=== PATIENT | male | born 1965 | race Caucasian/White ===

== ENCOUNTER 2021-02-14 09:58 | Emergency (ER) | payer OTHER, SELFPAY ==
--- NOTE | ~2021-02-14 | XR_ITS ---
EXAMINATION: RIGHT WRIST, RIGHT ANKLE AND LEFT KNEE. CLINICAL INFORMATION: Pain. COMPARISON: None TECHNIQUE: Right wrist 4 views. Right ankle 3 views. Right knee 4 views. FINDINGS: Right wrist: There is no visible fracture, dislocation or subluxation seen. The intercarpal and radial ulnar carpal joint space is maintained normal. Right knee: There is mild reduction in the medial compartment joint space with periarticular spurring. The lateral and patellofemoral joint space is normal. There is mild suprapatellar joint effusion seen. The soft tissues are normal. Right ankle: There is bimalleolar soft tissue swelling. No visible acute fracture, dislocation or subluxation seen. There is mild dorsal tarsometatarsal spurring. The ankle mortise and subtalar joints are normal. XR/XR knee LT 4V IMPRESSION: Unremarkable right wrist exam. No visible acute fracture, dislocation or subluxation seen. Bimalleolar soft tissue swelling likely ligamentous injury. No acute fracture or dislocation. There is mild dorsal tarsometatarsal spurring. There is mild degenerative changes medial and patellofemoral compartment with mild suprapatellar joint effusion.
--- NOTE | ~2021-02-14 | XR_ITS ---
EXAMINATION: RIGHT WRIST, RIGHT ANKLE AND LEFT KNEE. CLINICAL INFORMATION: Pain. COMPARISON: None TECHNIQUE: Right wrist 4 views. Right ankle 3 views. Right knee 4 views. FINDINGS: Right wrist: There is no visible fracture, dislocation or subluxation seen. The intercarpal and radial ulnar carpal joint space is maintained normal. Right knee: There is mild reduction in the medial compartment joint space with periarticular spurring. The lateral and patellofemoral joint space is normal. There is mild suprapatellar joint effusion seen. The soft tissues are normal. Right ankle: There is bimalleolar soft tissue swelling. No visible acute fracture, dislocation or subluxation seen. There is mild dorsal tarsometatarsal spurring. The ankle mortise and subtalar joints are normal. XR/XR wrist RT min 3V IMPRESSION: Unremarkable right wrist exam. No visible acute fracture, dislocation or subluxation seen. Bimalleolar soft tissue swelling likely ligamentous injury. No acute fracture or dislocation. There is mild dorsal tarsometatarsal spurring. There is mild degenerative changes medial and patellofemoral compartment with mild suprapatellar joint effusion.
--- NOTE | ~2021-02-14 | XR_ITS ---
EXAMINATION: RIGHT WRIST, RIGHT ANKLE AND LEFT KNEE. CLINICAL INFORMATION: Pain. COMPARISON: None TECHNIQUE: Right wrist 4 views. Right ankle 3 views. Right knee 4 views. FINDINGS: Right wrist: There is no visible fracture, dislocation or subluxation seen. The intercarpal and radial ulnar carpal joint space is maintained normal. Right knee: There is mild reduction in the medial compartment joint space with periarticular spurring. The lateral and patellofemoral joint space is normal. There is mild suprapatellar joint effusion seen. The soft tissues are normal. Right ankle: There is bimalleolar soft tissue swelling. No visible acute fracture, dislocation or subluxation seen. There is mild dorsal tarsometatarsal spurring. The ankle mortise and subtalar joints are normal. XR/XR ankle RT min 3V IMPRESSION: Unremarkable right wrist exam. No visible acute fracture, dislocation or subluxation seen. Bimalleolar soft tissue swelling likely ligamentous injury. No acute fracture or dislocation. There is mild dorsal tarsometatarsal spurring. There is mild degenerative changes medial and patellofemoral compartment with mild suprapatellar joint effusion.
[2021-02-14 10:16] VITALS: BP 137/77; PULSE 72; RESP 19; TEMP 37.1; O2SAT 94; BMI 47.9
--- NOTE | 2021-02-14 11:35 | ED_ITS ---
HPI - General Adult General Chief complaint: General Medical Stated complaint: multiple complaints Time Seen by Provider: 02/14/21 10:50 Source: patient Mode of arrival: ambulatory Limitations: no limitations History of Present Illness MD complaint: arthralgias Onset (ago): week(s) (1) Location: left, right, upper extremity and lower extremity Radiation: non-radiation Severity: severe Quality: aching and constant Pain Consistency: constant Relieving factors: none Exacerbating factors: movement Associated symptoms: denies other symptoms Treatments prior to arrival: none Related Data Home Medications Medication Instructions Recorded Confirmed No Known Home Meds 02/14/21 02/14/21 Allergies Allergy/AdvReac Type Severity Reaction Status Date / Time No Known Allergies Allergy Unverified 03/11/20 15:07 Review of Systems Review of Systems: Constitutional : No Fever, No Chills ENT/Mouth : No Ear Pain, No Hoarseness, No sore throat Eyes: No Eye Pain, No Swelling, No Redness, No Foreign Body Cardiovascular : No Chest Pain, No SOB Respiratory : No Cough, No Dyspnea Gastrointestinal : No Nausea, No Vomiting, No Diarrhea, No abdominal Pain Genitourinary : No Dysuria, No Hematuria Musculoskeletal : positive joint pain, No Myalgias, pos Joint Swelling Skin : No Skin lacerations, No rash Neuro : No Weakness, No Numbness, No Loss of Consciousness, No Dizziness, No Headache Psych : No Anxiety/Panic, No Depression Heme/Lymph: no easy bruising, no Lymphadenopathy Endocrine : No Polyuria, No Polydipsia All other systems reviewed and are negative [facility] Past Medical History Medical History (Updated 02/14/21 @ 13:48 by Cintia Riddle DO) Arthritis Gout Hyperlipidemia Surgical History (Updated 02/14/21 @ 11:58 by Cintia Riddle DO) H/O hernia repair Social History Social History (Updated 02/14/21 @ 11:58 by Cintia Riddle DO) Patient Tobacco Use Status: Never used Tobacco Use of substances other than those prescribed or required for medical reasons: No Advance Directives: Yes Advance Directives Information Provided: Yes Advance Directives on File: No Physical Exam Vital Signs: Vital Signs: Last Vital Signs Temp 98.3 F 02/14/21 15:40 Pulse 74 02/14/21 15:40 Resp 20 02/14/21 15:40 BP 151/91 H 02/14/21 15:40 Pulse Ox 93 02/14/21 15:40 Body Mass Index 47.9 Appearance: Alert. Oriented X3. No acute distress. Eyes: Pupils equal, round and reactive to light. ENT: Pharynx normal. Neck: Normal inspection. Neck supple. CVS: Normal heart rate and rhythm. Pulses normal. Respiratory: No respiratory distress. Breath sounds normal. Abdomen: Soft and nontender. Obese Skin: Skin warm and dry. Normal skin color. Normal skin turgor. Extremities:bilateral pitting 2+ lower extremity edema. L knee ttp no erythema/warmth, R wrist swelling moderate dorsum no redness but pos ttp, R ankle no erythema or warmth but ttp Neuro: Oriented X 3. No motor deficit. No sensory deficit. Course Course Course Narrative: patient very upset that he has been waiting x 2 hours, I explained tests take some time as well as we are at capacity, he is aware he would need pain control and possible rehab, he states he doesn't want rehab Patient placed in physician observation at 340pm. The indication for observation is that the patient needs more time to see if their joint pain improves or they will need STR. At this time the patient is well developed well nourished, lungs clear, CV RRR, abd nontender, neuro is intact. Medical Decision Making MDM Narrative Medical decision making narrative: 55 yo male with obesity, arthritis, HLD, here with 1 week ago works a lot in the yard thinks he overdid it. Joints are swollen but no signs of infection could by polyarthirtis no hx of rheumatologic diseases possible lyme - labs, infl markers, xrays, PO pain control. Lab Data Result diagrams: 02/14/21 12:40 02/14/21 12:40 Labs: Lab Results 02/14/21 02/14/21 02/14/21 Range/Units 12:40 12:40 12:40 WBC 11.1 H (4.8-10.8) X10*3/uL RBC 4.28 L (4.60-5.80) X10*6/uL Hgb 13.3 L (14.0-18.0) g/dl Hct 40.6 L (42-52) % MCV 94.9 (80-98) fL MCH 31.1 (27.0-33.0) pg MCHC 32.8 (31.0-36.0) g/dl RDW 12.8 (11.0-16.0) % Plt Count 218 (160-400) X10*3/uL MPV 10.1 (9.4-12.4) fL Immature Gran % (Auto) 0.4 (0.0-0.4) % Neut % (Auto) 72.2 (45-73) % Lymph % (Auto) 16.2 L (20-40) % [place] % (Auto) 9.9 (2-11) % Eos % (Auto) 0.9 (0-4) % Baso % (Auto) 0.4 (0-2) % Lymph # (Auto) 1.8 (1.2-4.9) X10*3/uL [place] # (Auto) 1.1 (0.1-1.2) X10*3/uL Eos # (Auto) 0.1 (0.0-0.4) X10*3/uL Baso # (Auto) 0.0 (0.0-0.2) X10*3/uL Abs Immat Gran (auto) 0.04 H (0.00-0.03) X10*3/uL Absolute Neuts (auto) 8.1 (2.0-8.3) X10*3/uL Absolute Nucleated RBC 0.000 (0.0-0.012) X10*3/uL Nucleated RBC % (auto) 0.0 (0.0-0.2) /100WBC ESR 51 H (0-15) MM/HR Sodium 139 (135-145) mmol/L Potassium 4.3 (3.3-5.1) mmol/L Chloride 99 (96-108) mmol/L Carbon Dioxide 34 H (22-29) mmol/L Anion Gap 10 L (12-20) BUN 15 (9-16) mg/dL Creatinine 0.98 (0.5-1.4) mg/dL Estim Creat Clear Calc 122.1 Estimated GFR > 60 Random Glucose 120 H (60-115) mg/dL Uric Acid 9.6 H (3.4-7.0) mg/dL Calcium 8.8 (8.4-10.2) mg/dL Total Bilirubin 0.6 (0.0-1.0) mg/dL Direct Bilirubin 0.3 (0.0-0.5) mg/dL AST 27 (5-37) U/L ALT 31 (0-40) U/L Alkaline Phosphatase 82 (39-117) U/L C-Reactive Protein 4.77 H (< or = 0.50) mg/dL Total Protein 6.9 (6.5-8.0) g/dL Albumin 4.0 (3.5-5.0) g/dL COVID-19 (PAULIE) (Negative) COVID-19 Clin Com 02/14/21 Range/Units 14:49 WBC (4.8-10.8) X10*3/uL RBC (4.60-5.80) X10*6/uL Hgb (14.0-18.0) g/dl Hct (42-52) % MCV (80-98) fL MCH (27.0-33.0) pg MCHC (31.0-36.0) g/dl RDW (11.0-16.0) % Plt Count (160-400) X10*3/uL MPV (9.4-12.4) fL Immature Gran % (Auto) (0.0-0.4) % Neut % (Auto) (45-73) % Lymph % (Auto) (20-40) % [place] % (Auto) (2-11) % Eos % (Auto) (0-4) % Baso % (Auto) (0-2) % Lymph # (Auto) (1.2-4.9) X10*3/uL [place] # (Auto) (0.1-1.2) X10*3/uL Eos # (Auto) (0.0-0.4) X10*3/uL Baso # (Auto) (0.0-0.2) X10*3/uL Abs Immat Gran (auto) (0.00-0.03) X10*3/uL Absolute Neuts (auto) (2.0-8.3) X10*3/uL Absolute Nucleated RBC (0.0-0.012) X10*3/uL Nucleated RBC % (auto) (0.0-0.2) /100WBC ESR (0-15) MM/HR Sodium (135-145) mmol/L Potassium (3.3-5.1) mmol/L Chloride (96-108) mmol/L Carbon Dioxide (22-29) mmol/L Anion Gap (12-20) BUN (9-16) mg/dL Creatinine (0.5-1.4) mg/dL Estim Creat Clear Calc Estimated GFR Random Glucose (60-115) mg/dL Uric Acid (3.4-7.0) mg/dL Calcium (8.4-10.2) mg/dL Total Bilirubin (0.0-1.0) mg/dL Direct Bilirubin (0.0-0.5) mg/dL AST (5-37) U/L ALT (0-40) U/L Alkaline Phosphatase (39-117) U/L C-Reactive Protein (< or = 0.50) mg/dL Total Protein (6.5-8.0) g/dL Albumin (3.5-5.0) g/dL COVID-19 (PAULIE) Negative (Negative) COVID-19 Clin Com See Note Discharge Plan Discharge Clinical Impression: Polyarthralgia, Gout Instructions: Gout (ED), Arthralgia (ED) Additional Instructions: return to ED for any worsening symptoms or concerns please follow up with a new primary care provider Prescriptions: No Action No Known Home Meds RF: 0
[2021-02-14] MEDS: Morphine Sulfate Immed Release 15 MG TABLET PO (12:13)
[2021-02-14 12:55] LABS: MANUAL DIFF FLAG NO
[2021-02-14 12:56] LABS: Basophils Percent Auto 0.4 % (0-2); Eosinophils Absolute Auto 0.1 X10*3/uL (0.0-0.4); Eosinophils Percent Auto 0.9 % (0-4); Hematocrit 40.6 % (42-52); Hemoglobin 13.3 g/dl (14.0-18.0); Imm Gran Abs Auto 0.04 X10*3/uL (0.00-0.03); Imm Gran Pct Auto 0.4 % (0.0-0.4); Lymphocytes Absolute Auto 1.8 X10*3/uL (1.2-4.9); Lymphocytes Percent Auto 16.2 % (20-40); Mean Corpuscular HGB Conc 32.8 g/dl (31.0-36.0); Mean Corpuscular Hemoglobin 31.1 pg (27.0-33.0); Mean Corpuscular Volume 94.9 fL (80-98); Mean Platelet Volume 10.1 fL (9.4-12.4); Monocytes Absolute Auto 1.1 X10*3/uL (0.1-1.2); Monocytes Percent Auto 9.9 % (2-11); Neutrophils Absolute Auto 8.1 X10*3/uL (2.0-8.3); Neutrophils Percent Auto 72.2 % (45-73); Platelet Count 218 X10*3/uL (160-400); Red Blood Count 4.28 X10*6/uL (4.60-5.80); Red Cell Distribution Width 12.8 % (11.0-16.0); White Blood Count 11.1 X10*3/uL (4.8-10.8)
[2021-02-14 13:21] LABS: Alanine Aminotransferase 31 U/L (0-40); Alkaline Phosphatase 82 U/L (39-117); Anion Gap 10 (12-20); Aspartate Amino Transferase 27 U/L (5-37); Bilirubin Direct 0.3 mg/dL (0.0-0.5); Bilirubin Total 0.6 mg/dL (0.0-1.0); Blood Urea Nitrogen 15 mg/dL (9-16); C Reactive Protein 4.77 mg/dL (< or = 0.50); Calcium 8.8 mg/dL (8.4-10.2); Carbon Dioxide 34 mmol/L (22-29); Chloride 99 mmol/L (96-108); Creatinine Clr Calc Pharmacy 122.1; Estimated Glomerular Filt Rate > 60; Glucose Random 120 mg/dL (60-115); Potassium 4.3 mmol/L (3.3-5.1); Sodium 139 mmol/L (135-145); Total Protein 6.9 g/dL (6.5-8.0); Uric Acid 9.6 mg/dL (3.4-7.0)
[2021-02-14 13:47] LABS: Erythrocyte Sedimentation Rate 51 MM/HR (0-15)
[2021-02-14] MEDS: predniSONE 20 MG TABLET 60 MG PO (14:16)
--- NOTE | 2021-02-14 15:08 | PHA.MEDREC ---
Pharmacy Consult ? Medication Reconciliation Pharmacy has completed the medication reconciliation. Patient takes no know home medications. He took Ibuprofen for his joint pain but doesn't take it regularly. Neeliam Baldwin, PharmD [phone]
[2021-02-14 15:11] VITALS: RESP 16
[2021-02-14] MEDS: HYDROmorphone HCl 2 MG/ML VIAL IM (15:11)
[2021-02-14 15:13] LABS: COVID-19 Test Negative (Negative); IDNOW Serial# 9DD0AD1C
[2021-02-14 15:26] VITALS: BP 137/77; PULSE 72; O2SAT 94
[2021-02-14 15:40] VITALS: BP 151/91; PULSE 74; RESP 20; TEMP 36.8; O2SAT 93
--- NOTE | 2021-02-14 18:27 | ED_ITS ---
HPI - General Adult General Chief complaint: General Medical Stated complaint: multiple complaints Time Seen by Provider: 02/14/21 10:50 Source: patient Mode of arrival: ambulatory Limitations: no limitations History of Present Illness Location: left, right, upper extremity and lower extremity Quality: aching and constant Relieving factors: none Exacerbating factors: movement Associated symptoms: denies other symptoms Treatments prior to arrival: none Related Data Home Medications Medication Instructions Recorded Confirmed No Known Home Meds 02/14/21 02/14/21 Allergies Allergy/AdvReac Type Severity Reaction Status Date / Time No Known Allergies Allergy Unverified 03/11/20 15:07 [facility] Past Medical History Medical History (Updated 02/14/21 @ 13:48 by Cintia Riddle DO) Arthritis Gout Hyperlipidemia Surgical History (Updated 02/14/21 @ 11:58 by Cintia Riddle DO) H/O hernia repair Social History Social History (Updated 02/14/21 @ 11:58 by Cintia Riddle DO) Patient Tobacco Use Status: Never used Tobacco Use of substances other than those prescribed or required for medical reasons: No Advance Directives: Yes Advance Directives Information Provided: Yes Advance Directives on File: No Physical Exam Vital Signs: Vital Signs: Last Vital Signs Temp 98.3 F 02/14/21 21:00 Pulse 78 02/14/21 23:52 Resp 16 02/14/21 23:52 BP 136/76 02/14/21 23:52 Pulse Ox 97 02/14/21 23:52 Body Mass Index 47.9 Medical Decision Making Lab Data Result diagrams: 02/14/21 12:40 02/14/21 12:40 Labs: Lab Results 02/14/21 02/14/21 02/14/21 Range/Units 12:40 12:40 12:40 WBC 11.1 H (4.8-10.8) X10*3/uL RBC 4.28 L (4.60-5.80) X10*6/uL Hgb 13.3 L (14.0-18.0) g/dl Hct 40.6 L (42-52) % MCV 94.9 (80-98) fL MCH 31.1 (27.0-33.0) pg MCHC 32.8 (31.0-36.0) g/dl RDW 12.8 (11.0-16.0) % Plt Count 218 (160-400) X10*3/uL MPV 10.1 (9.4-12.4) fL Immature Gran % (Auto) 0.4 (0.0-0.4) % Neut % (Auto) 72.2 (45-73) % Lymph % (Auto) 16.2 L (20-40) % [place] % (Auto) 9.9 (2-11) % Eos % (Auto) 0.9 (0-4) % Baso % (Auto) 0.4 (0-2) % Lymph # (Auto) 1.8 (1.2-4.9) X10*3/uL [place] # (Auto) 1.1 (0.1-1.2) X10*3/uL Eos # (Auto) 0.1 (0.0-0.4) X10*3/uL Baso # (Auto) 0.0 (0.0-0.2) X10*3/uL Abs Immat Gran (auto) 0.04 H (0.00-0.03) X10*3/uL Absolute Neuts (auto) 8.1 (2.0-8.3) X10*3/uL Absolute Nucleated RBC 0.000 (0.0-0.012) X10*3/uL Nucleated RBC % (auto) 0.0 (0.0-0.2) /100WBC ESR 51 H (0-15) MM/HR Sodium 139 (135-145) mmol/L Potassium 4.3 (3.3-5.1) mmol/L Chloride 99 (96-108) mmol/L Carbon Dioxide 34 H (22-29) mmol/L Anion Gap 10 L (12-20) BUN 15 (9-16) mg/dL Creatinine 0.98 (0.5-1.4) mg/dL Estim Creat Clear Calc 122.1 Estimated GFR > 60 Random Glucose 120 H (60-115) mg/dL Uric Acid 9.6 H (3.4-7.0) mg/dL Calcium 8.8 (8.4-10.2) mg/dL Total Bilirubin 0.6 (0.0-1.0) mg/dL Direct Bilirubin 0.3 (0.0-0.5) mg/dL AST 27 (5-37) U/L ALT 31 (0-40) U/L Alkaline Phosphatase 82 (39-117) U/L C-Reactive Protein 4.77 H (< or = 0.50) mg/dL Total Protein 6.9 (6.5-8.0) g/dL Albumin 4.0 (3.5-5.0) g/dL COVID-19 ([facility]ULIE) (Negative) COVID-19 Clin Com 02/14/21 Range/Units 14:49 WBC (4.8-10.8) X10*3/uL RBC (4.60-5.80) X10*6/uL Hgb (14.0-18.0) g/dl Hct (42-52) % MCV (80-98) fL MCH (27.0-33.0) pg MCHC (31.0-36.0) g/dl RDW (11.0-16.0) % Plt Count (160-400) X10*3/uL MPV (9.4-12.4) fL Immature Gran % (Auto) (0.0-0.4) % Neut % (Auto) (45-73) % Lymph % (Auto) (20-40) % [place] % (Auto) (2-11) % Eos % (Auto) (0-4) % Baso % (Auto) (0-2) % Lymph # (Auto) (1.2-4.9) X10*3/uL [place] # (Auto) (0.1-1.2) X10*3/uL Eos # (Auto) (0.0-0.4) X10*3/uL Baso # (Auto) (0.0-0.2) X10*3/uL Abs Immat Gran (auto) (0.00-0.03) X10*3/uL Absolute Neuts (auto) (2.0-8.3) X10*3/uL Absolute Nucleated RBC (0.0-0.012) X10*3/uL Nucleated RBC % (auto) (0.0-0.2) /100WBC ESR (0-15) MM/HR Sodium (135-145) mmol/L Potassium (3.3-5.1) mmol/L Chloride (96-108) mmol/L Carbon Dioxide (22-29) mmol/L Anion Gap (12-20) BUN (9-16) mg/dL Creatinine (0.5-1.4) mg/dL Estim Creat Clear Calc Estimated GFR Random Glucose (60-115) mg/dL Uric Acid (3.4-7.0) mg/dL Calcium (8.4-10.2) mg/dL Total Bilirubin (0.0-1.0) mg/dL Direct Bilirubin (0.0-0.5) mg/dL AST (5-37) U/L ALT (0-40) U/L Alkaline Phosphatase (39-117) U/L C-Reactive Protein (< or = 0.50) mg/dL Total Protein (6.5-8.0) g/dL Albumin (3.5-5.0) g/dL COVID-19 (PAULIE) Negative (Negative) COVID-19 Clin Com See Note Discharge Plan Discharge Clinical Impression: Polyarthralgia Gout Qualifiers: Gout site: multiple sites Gout etiology: unspecified cause Chronicity: acute Qualified Code(s): M10.9 - Gout, unspecified Instructions: Gout (ED), Arthralgia (ED) Additional Instructions: return to ED for any worsening symptoms or concerns please follow up with a new primary care provider Prescriptions: No Action No Known Home Meds RF: 0
--- NOTE | 2021-02-14 20:10 | PC.NURSE ---
pt sitting up in stretcher and ambulates to restroom. pt denies any complaints. pt alert, respirations easty, n/l.
[2021-02-14 21:00] VITALS: BP 139/77; PULSE 80; RESP 20; TEMP 36.8; O2SAT 92
--- NOTE | 2021-02-14 22:40 | PC.NURSE ---
PT AWAKE AND SITTING UP IN STRETCHER, DENIES ANY COMPLAINTS. WILL CONTINUE TO MONITOR PT.
[2021-02-14 23:52] VITALS: BP 136/76; PULSE 78; RESP 16; O2SAT 97
[2021-02-15 04:00] VITALS: BP 132/74; PULSE 79; RESP 18
--- NOTE | 2021-02-15 04:24 | PC.NURSE ---
PT C/O LIDIA LEG PAIN. PT REFUSING TO TAKE MORPHINE PO AND IS REQUESTING DILAUDID IM. DILAUDID IS NOT GIVEN TO PT.
--- NOTE | 2021-02-15 05:28 | PC.NURSE ---
PT SLEEPING IN STRETCHER IN NAD.
--- NOTE | 2021-02-15 05:48 | PC.NURSE ---
PT SLEEPING AT THIS TIME. WILL CONTINUE TO MONITOR PT.
[2021-02-15 05:50] VITALS: BP 131/75; PULSE 81; RESP 18
--- NOTE | 2021-02-15 07:57 | PC.NURSE ---
PT SITTING ON EDGE OF STRETCHER FOR BKFST
--- NOTE | 2021-02-15 09:25 | PC.NURSE ---
PT AMB TO BR INDEPENDENTLY. ASKING FOR PAIN MED. THEN NOTICED TO BE SLEEPING
[2021-02-15] MEDS: predniSONE 20 MG TABLET 60 MG PO (09:54)
[2021-02-15 12:47] LABS: Lyme Abs Screen <0.90 index
--- NOTE | 2021-02-15 16:00 | MHC.CM.ED ---
Met with pt to discuss d/c needs: pt states that he has everything he needs and does not need services, only pain medications. Pt states he hasn't been able to get an appt with his new PCP since his retired (Niko, ?) Pt has active [employer] insurance, drives and no barriers to obtaining care. Encouraged pt to continue trying for an appointment for assistance with his pain management issues.
== END 2021-02-15 10:36 | disposition home or self-care (01) ==
PROVIDERS: Emergency Provider Emergency Medicine
DX: M10.9 Gout, unspecified (principal); R60.0 Localized edema; M25.531 Pain in right wrist; M25.571 Pain in right ankle and joints of right foot; M25.561 Pain in right knee; Z20.822 Contact with and (suspected) exposure to COVID-19
CPT/HCPCS: 36415; 73110; 73564; 73610; 80048; 80076; 84550; 85025; 85652; 86140; 86617; 86618; 87635; 96372; 97161; 99284; J1170

== ENCOUNTER 2021-05-24 14:25 | Inpatient (IN) | payer OTHER, SELFPAY ==
--- NOTE | ~2021-05-24 | CT_ITS ---
EXAMINATION: CT ANGIOGRAM OF THE CHEST WITH AND WITHOUT CONTRAST (CT PULMONARY ANGIOGRAM FOR PE) CLINICAL INFORMATION: Reason for Exam Covid with hypoxia. Covid pneumonia?PE? COMPARISON: Chest x-ray 05/24/2021 TECHNIQUE: Prior to contrast administration, noncontrast localization images were obtained. Subsequently, multidetector volumetric imaging was performed from the thoracic inlet to below the diaphragms following the administration of 80 mL Omnipaque 350 intravenous contrast. No contrast reaction reported Sagittal, coronal, and MIP oblique sagittal reformatted images were obtained on the CT workstation, uploaded to PACS, and reviewed. This CT examination was performed using dose optimization techniques as appropriate, variously including the following: *Automated exposure control *Adjustment of mA and/or kV according to patient size (this includes techniques or standardized protocols for targeted exams where dose is matched to indication/reason for exam; i.e. extremities or head) *Use of iterative reconstruction technique Total exam dose-length product 605 mGy-cm FINDINGS: QUALITY OF STUDY/CONTRAST BOLUS: Satisfactory. PULMONARY ARTERIES: No central or segmental pulmonary emboli. THORACIC AORTA: No aneurysm or dissection. LUNG: No focal consolidation. There is mild mosaic attenuation of the lung consistent with small airways disease. The central bronchial airways are open. There is no bronchiectasis. PLEURA: No pleural effusion or pneumothorax. MEDIASTINUM: Heart size is mildly enlarged.. No pericardial effusion. No hilar or mediastinal lymphadenopathy. No evidence of septal bowing or right heart strain. CHEST WALL/AXILLA: No axillary or internal mammary lymphadenopathy. OSSEOUS STRUCTURES: No acute or suspicious osseous abnormality. UPPER ABDOMEN: Unremarkable. No reflux of contrast into the hepatic veins to suggest elevated right heart pressures. CT/CT angio chest PE protocol IMPRESSION: 1. No evidence of pulmonary embolism. 2. Mild mosaic attenuation of lung parenchyma consistent with small airways disease. No focal consolidation. VTE: negative
--- NOTE | ~2021-05-24 | XR_ITS ---
EXAMINATION: XR CHEST CLINICAL INFORMATION: Positive Covid with worsening cough, body aches and sore throat COMPARISON: RIBS and chest 12/23/2019 TECHNIQUE: Frontal view of the chest was obtained. FINDINGS: No significant abnormality is noted involving the heart, lungs, mediastinum, bony thorax or soft tissues. A large pannus partially obscures the left lower lobe. XR/XR chest 1V IMPRESSION: No acute intrathoracic disease. No evidence to suggest Covid pulmonary disease.
[2021-05-24 16:03] VITALS: BP 163/95; PULSE 75; RESP 18; TEMP 37.3; O2SAT 92; BMI 51.7
[2021-05-24] MEDS: Albuterol Sulfate (0.083%) 2.5 MG/3 ML VIAL.NEB 10 MG INHALE (17:03)
[2021-05-24 17:06] VITALS: PULSE 77; O2SAT 94
--- NOTE | 2021-05-24 17:21 | ED_ITS ---
HPI - URI/Sore Throat General Chief Complaint: Upper Respiratory Symptoms Stated Complaint: + covid - sob, multiple complaints Time Seen by Provider: 05/24/21 16:48 Source: patient Mode of arrival: ambulatory Limitations: no limitations History of Present Illness HPI Narrative: 55-year-old male with a past medical history of gout presenting to the ED with complaints of chills, body aches, sore throat and a dry cough with shortness of breath/dyspnea on exertion since Sunday worse today. Reports that his symptoms started on Sunday then on Sunday he got tested for COVID at the [facility] and was called yesterday that he was positive for COVID. And today is when his symptoms worsen. He denies any fevers, dizziness, headache, neck pain/stiffness, trouble swallowing or breathing, ear pain, nasal congestion/rhinorrhea, chest pain, orthopnea, palpitations, nausea/vomiting/diarrhea, constipation, abdominal pain, back pain, rashes, recent travel or sick contacts. Reports that he is not vaccinated to COVID. Denies any other symptoms complaints or concerns at this time. MD elicited complaint: cough and sore throat Pertinent past history: other (Diagnosed with COVID received his results yesterday) Onset (ago): day(s) (3) Consistency: constant and progressively worsening Severity: moderate Able to tolerate fluids by mouth: Yes Exacerbating factors: swallowing, exertion and deep breaths Relieving factors: nothing Associated symptoms: voice changes, myalgias, sore throat, cough and shortness of breath Treatments prior to arrival: none Related Data Previous Rx's Medication Instructions Recorded morphine 15 mg immediate release 15 mg PO Q6H PRN 3 Days #12 tab 02/15/21 tablet prednisone 20 mg tablet 60 mg PO DAILY 3 Days #9 tab 02/15/21 Allergies Allergy/AdvReac Type Severity Reaction Status Date / Time No Known Allergies Allergy Verified 05/24/21 16:03 Review of Systems Review of Systems: Constitutional : Positive fatigue/malaise/chills, No Weight loss, No Fever, No Night Sweats ENT/Mouth : Positive sore throat/hoarseness, No Hearing loss, No Ear Pain, No Nasal Congestion, No Sinus Pain, No Rhinorrhea, No Swallowing Difficulty Eyes: No Eye Pain, No Swelling, No Redness, No Foreign Body, No Discharge, No Vision Changes Cardiovascular : No Chest Pain, No SOB, No Dyspnea on Exertion, No Orthopnea, No Edema, No Palpitations Respiratory : Positive Cough, No Sputum, No Wheezing, No Smoke Exposure, No Dyspnea Gastrointestinal : No Nausea, No Vomiting, No Diarrhea, No Constipation, No abdominal Pain, No Hematochezia, No Melena Genitourinary : no irregular bleeding, No Dysuria, No Urinary Frequency, No Hematuria, No Urinary Incontinence, No Urgency, No Flank Pain, No Urinary Flow Changes, No Hesitancy Musculoskeletal : Positive myalgias, No joint pain, No Joint Swelling Skin : No Skin Lesions, No rash Neuro : No Weakness, No Numbness, No Paresthesias, No Loss of Consciousness, No Dizziness, No Headache Psych : No Anxiety/Panic, No Depression, No SI/HI/AH/VH, No Social Issues, Heme/Lymph: No Bruising, No Bleeding,No Lymphadenopathy Endocrine : No Polyuria, No Polydipsia, No Temperature Intolerance Yes all other systems are reviewed and are negative [facility] Past Medical History Attestation statement: The following information was validated with the patient. Medical History Arthritis Gout Hyperlipidemia Surgical History H/O hernia repair Social History Social History Patient Tobacco Use Status: Never used Tobacco Advance Directives: No Advance Directives Information Provided: Yes Physical Exam Vital Signs: Vital Signs: Last Vital Signs Temp 99.2 F 05/24/21 16:03 Pulse 77 05/24/21 17:06 Resp 18 05/24/21 16:03 BP 163/95 H 05/24/21 16:03 Pulse Ox 92 05/24/21 16:03 Body Mass Index 51.7 vital signs have been reviewed as normal and appeared to be correct. Blood pressure normal. Heart rate normal. Respiration rate normal. Temperature normal. Oxygen saturation normal but low at 92%. Appearance: Alert. Oriented X3. No acute distress. Head: Normal external exam. Normocephalic. Atraumatic. Eyes: PERRLA. EOMI. Conjunctiva and sclera normal. Eyelids normal. ENT: EAC normal. TM's Normal. Pharynx normal. Uvula midline. Moist mucous membranes. No trismus noted. No drooling noted. No muffled voice noted. Neck: Normal inspection. Neck supple. FROM. No adenopathy. Thyroid Normal. No meningeal signs. No neck mass noted. CVS: Normal heart rate and rhythm. Heart sound normal. Pulses normal throughout. No murmurs/rales/gallops. Respiratory: Mild decreased breath sounds with expiratory wheezing otherwise patient has Painless inspiration. Otherwise breath sounds are normal. No rales/rhonchi noted. Chest nontender. No accessory muscle usage noted. Abdomen: Soft and nontender. Bowel sounds normal in all 4 quadrants. No distention noted. No organomegaly noted. No visible injury noted. Back: No CVA tenderness. Full range of motion noted. No rashes/lesion/induration/fluctuance or signs of infection noted. Skin: Skin warm and dry. Normal skin color. Normal skin turgor. No rashes/lesions/lacerations noted. Extremities: No lower extremity edema. No calf tenderness is noted. Extremities exhibit normal range of motion. Extremities nontender. Neuro: Oriented X 3. No motor deficit. No sensory deficit. Reflexes normal. Normal steady gait. No focal neuro deficits noted. Vascular: + radial pulses/+ 2 distal pedal pulses/+2 dorsalis pedis b/l. Normal cap refill. No cyanosis noted to upper extremity nails and lower extremity toes nails. Course Course Course Narrative: 17pm - 55-year-old male with a past medical history of gout presenting to the ED with complaints of chills, body aches, sore throat and a dry cough with shortness of breath/dyspnea on exertion since Sunday worse today. Reports that his symptoms started on Sunday then on Sunday he got tested for COVID at the [facility] and was called yesterday that he was positive for COVID. And today is when his symptoms worsen. On exam patient is alert and oriented x3. Not in any acute distress. CV RRR. Decreased breath sounds with expiratory wheezing otherwise no rales/rhonchi or accessory muscle usage noted. Abdomen is soft and nontender. Plan: Labs, CXR, EKG provide an hour long breathing treatment, 60 mg of prednisone, 10 mg of Robitussin with codeine then re-evaluate. Reevaluation(s) Reevaluation #1: - - sign out to JOHN Kelly PENDING ABOVE Time: 18:13 MDM - URI/Sore Throat Medical Records Attestation: I reviewed the patient's medical records. Lab Data Attestation: I reviewed the patient's lab results. Imaging Data Chest x-ray: Attestation: I personally reviewed and interpreted this imaging study as follows: Radiologist's impression: FINDINGS: No significant abnormality is noted involving the heart, lungs, mediastinum, bony thorax or soft tissues. A large pannus partially obscures the left lower lobe. XR/XR chest 1V IMPRESSION: No acute intrathoracic disease. No evidence to suggest Covid pulmonary disease. Discharge Plan Discharge Clinical Impression: COVID-19 Patient Disposition: Still a Patient Prescriptions: No Action prednisone 20 mg tablet 60 mg PO DAILY 3 Days Qty: 9 RF: 0 morphine 15 mg tablet 15 mg PO Q6H PRN (Reason: pain) 3 Days Qty: 12 RF: 0
--- NOTE | 2021-05-24 17:32 | ECG_ITS ---
Test Reason : dyspnea Blood Pressure : / mmHG Vent. Rate : 080 BPM Atrial Rate : 080 BPM P-R Int : 164 ms QRS Dur : 104 ms QT Int : 418 ms P-R-T Axes : 073 090 045 degrees QTc Int : 482 ms Artifact in tracing Sinus rhythm with Premature supraventricular complexes Rightward axis RSR' or QR pattern in V1 suggests right ventricular conduction delay Prolonged QT Abnormal ECG When compared with ECG of 16-MAR-2015 14:04, Premature supraventricular complexes are now Present Referred By: Stephanie Stein Electronically Signed By:SHANT PARK
[2021-05-24] MEDS: predniSONE 20 MG TABLET 60 MG PO (17:51)
[2021-05-24] MEDS: guaiFEN/Codeine SF 200/20/10ML 10 ML LIQUID PO (17:52)
[2021-05-24 18:23] LABS: MANUAL DIFF FLAG NO
[2021-05-24 18:30] LABS: Prothrombin Time 11.4 SEC (9.9-13.0)
[2021-05-24 18:39] LABS: Basophils Percent Auto 0.2 % (0-2); Eosinophils Absolute Auto 0.1 X10*3/uL (0.0-0.4); Eosinophils Percent Auto 2.2 % (0-4); Imm Gran Abs Auto 0.01 X10*3/uL (0.00-0.03); Imm Gran Pct Auto 0.2 % (0.0-0.4); Lymphocytes Absolute Auto 2.1 X10*3/uL (1.2-4.9); Lymphocytes Percent Auto 49.3 % (20-40); Mean Corpuscular HGB Conc 32.6 g/dl (31.0-36.0); Mean Corpuscular Hemoglobin 31.1 pg (27.0-33.0); Mean Corpuscular Volume 95.6 fL (80.0-98.0); Mean Platelet Volume 10.2 fL (9.4-12.4); Monocytes Absolute Auto 0.6 X10*3/uL (0.1-1.2); Monocytes Percent Auto 14.1 % (2-11); Neutrophils Absolute Auto 1.4 x10*3/uL (2.0-8.3); Platelet Count 139 X10*3/uL (160-400); Red Cell Distribution Width 12.7 % (11.0-16.0); White Blood Count 4.2 X10*3/uL (4.8-10.8)
[2021-05-24 18:41] LABS: Alanine Aminotransferase 27 U/L (0-40); Albumin Level 3.8 g/dL (3.5-5.0); Alkaline Phosphatase 83 U/L (39-117); Anion Gap 11 (12-20); Aspartate Amino Transferase 28 U/L (5-37); Bilirubin Total 0.3 mg/dL (0.0-1.0); Blood Urea Nitrogen 14 mg/dL (9-16); Calcium 8.3 mg/dL (8.4-10.2); Carbon Dioxide 32 mmol/L (22-29); Chloride 102 mmol/L (96-108); Creatinine Clr Calc Pharmacy 131.6; Estimated Glomerular Filt Rate > 60; Glucose Random 112 mg/dL (60-115); Potassium 3.5 mmol/L (3.3-5.1); Sodium 141 mmol/L (135-145); Total Protein 6.4 g/dL (6.5-8.0)
[2021-05-24 18:45] VITALS: O2SAT 88
[2021-05-24 18:45] LABS: B Type Natriuretic Peptide 12 pg/mL (<100)
[2021-05-24 19:32] VITALS: O2SAT 89
[2021-05-24 19:43] LABS: Troponin-I High Sensitivity 5.8 ng/L (<3.5-35.0)
[2021-05-24] MEDS: iohexoL 350 MG/ML 100 ML INFUS..BTL IV (20:31)
[2021-05-24 22:11] LABS: Lactic Acid 1.9 mmol/L (0.5-2.0)
--- NOTE | 2021-05-24 22:11 | PM.IMHP ---
History of Present Illness Date of Service: 05/24/21 Chief Complaint: shortness of breath this is a 55-year-old male with history of gout who presents to the hospital with complaints of shortness of breath as well as cough for the past 2 days. Patient reports that he was diagnosed with COVID-19 on Sunday after having symptoms since Sunday. He has cough, sore throat, body aches, and decided to come to the hospital because generally not feeling well. He denies any fever but has a chill, he has generalized abdominal pain but has now improved, denies having any chest pain, no headache or change in vision, no urinary symptoms and no lower extremity edema. on arrival to the ED patient noted to be hypoxic on ambulation with O2 dropping to 88%, his other vitals stable labs are significant for WBC count of 4.2, home otherwise unremarkable. CT angiogram shows no PE, and mild mosaic attenuation of lung parenchyma consistent with small airway disease patient will be admitted for further management Review of Systems Review of Systems: Yes all other systems are reviewed and are negative [facility] Medical History Arthritis Gout Hyperlipidemia Family History (Updated 05/25/21 @ 06:40 by Liana Karimi MD) Other No significant family history Surgical History H/O hernia repair Social History Patient Tobacco Use Status: Never used Tobacco Advance Directives: No Advance Directives Information Provided: Yes Meds Allergies Allergy/AdvReac Type Severity Reaction Status Date / Time No Known Allergies Allergy Verified 05/24/21 16:03 Active Medications: Current Medications Azithromycin 500 mg/ Sodium (Chloride) 250 mls @ 125 mls/hr IV ONCE ONE Stop: 05/24/21 22:56 Home Medications Medication Instructions Recorded Confirmed Last Taken Type allopurinol 100 mg tablet 2 tab PO DAILY 05/24/21 05/24/21 05/24/21 14:00 History Physical Exam Vital Signs and Narrative: Vital Signs: Last Vital Signs Temp 99.2 F 05/24/21 16:03 Pulse 77 05/24/21 17:06 Resp 18 05/24/21 16:03 BP 163/95 H 05/24/21 16:03 Pulse Ox 89 L 05/24/21 19:32 Body Mass Index 51.7 Const: General: cooperative and no acute distress Orientation/consciousness: patient oriented x3 Eyes: General: appearance normal, both eyes and all related structures Pupils: Equal, round and reactive pupils present Resp: Effort & Inspection: normal respiratory effort Auscultation: clear to auscultation bilaterally Cardio: Rate: regular rate Rhythm: regular rhythm GI: Palpation (GI): Soft to palpation Auscultation: normal bowel sounds Skin: General skin exam: no rashes or lesions noted Neuro: General: patient oriented x3 Cranial nerves: Yes Equal, round and reactive pupils present Cognition (Neuro): normal cognition Extrem: General: Yes normal to inspection and Yes no pedal edema Results Labs CBC and Chem 7: 05/24/21 18:19 05/24/21 18:19 Labs: Laboratory Results - last 24 hr 05/24/21 05/24/21 05/24/21 18:19 18:19 18:19 MCV 95.6 MCH 31.1 MCHC 32.6 RDW 12.7 Plt Count 139 L MPV 10.2 Immature Gran % (Auto) 0.2 Neut % (Auto) 34.0 L Lymph % (Auto) 49.3 H [place] % (Auto) 14.1 H Eos % (Auto) 2.2 Baso % (Auto) 0.2 Lymph # (Auto) 2.1 [place] # (Auto) 0.6 Eos # (Auto) 0.1 Baso # (Auto) 0.0 Abs Immat Gran (auto) 0.01 Absolute Neuts (auto) 1.4 L Absolute Nucleated RBC 0.000 Nucleated RBC % (auto) 0.0 Hold Purple Top SEE NOTE PT 11.4 INR 1.0 Anion Gap Estim Creat Clear Calc Estimated GFR Random Glucose Calcium Magnesium Total Bilirubin AST ALT Alkaline Phosphatase Troponin I High Sens B-Natriuretic Peptide Total Protein Albumin 05/24/21 05/24/21 18:19 18:19 MCV MCH MCHC RDW Plt Count MPV Immature Gran % (Auto) Neut % (Auto) Lymph % (Auto) [place] % (Auto) Eos % (Auto) Baso % (Auto) Lymph # (Auto) [place] # (Auto) Eos # (Auto) Baso # (Auto) Abs Immat Gran (auto) Absolute Neuts (auto) Absolute Nucleated RBC Nucleated RBC % (auto) Hold Purple Top PT INR Anion Gap 11 L Estim Creat Clear Calc 131.6 Estimated GFR > 60 Random Glucose 112 Calcium 8.3 L Magnesium 2.0 Total Bilirubin 0.3 AST 28 ALT 27 Alkaline Phosphatase 83 Troponin I High Sens 5.8 B-Natriuretic Peptide 12 Total Protein 6.4 L Albumin 3.8 Imaging Radiologist's Impressions: Impressions Chest X-Ray 05/24/21 17:01 IMPRESSION: No acute intrathoracic disease. No evidence to suggest Covid pulmonary disease. Chest CTA 05/24/21 20:40 IMPRESSION: 1. No evidence of pulmonary embolism. 2. Mild mosaic attenuation of lung parenchyma consistent with small airways disease. No focal consolidation. VTE: negative Assessment and Plan (1) COVID-19: Status: Acute (2) Acute respiratory failure with hypoxia: Status: Acute 55-year-old male with past medical history of gout presents to the hospital with shortness of breath, cough and positive COVID-19 pneumonia found to be hypoxic on ambulation # acute hypoxic respiratory failure - secondary to COVID-19 pneumonia - will start him on dexamethasone - monitor respiratory status # COVID-19 pneumo - hemodynamically stable, not requiring any oxygen at rest - hypoxic only on ambulation - dexamethasone as above - monitor for any increased O2 requirement # gout - continue allopurinol DVT prophylaxis: Lovenox Quality Stroke Does the patient have a stroke diagnosis?: No VTE Prior VTE?: No VTE Risk Level:: Medical - moderate - high VTE Device Contraindication: Treatment Not Indicated VTE Drug Contraindication: N/A - Med Ordered
[2021-05-24 22:20] LABS: Troponin-I High Sensitivity 6.8 ng/L (<3.5-35.0)
[2021-05-24] MEDS: dexAMETHasone sod phosphate 10 MG/ML VIAL IVPUSH (22:23)
[2021-05-24] MEDS: cefTRIAXone sodium 1 GM in 0.9 % Sodium Chloride 50 ML IV (22:31)
[2021-05-24 22:34] VITALS: BP 187/90; PULSE 82; RESP 16; O2SAT 94
[2021-05-24] MEDS: Azithromycin 500 MG in 0.9 % Sodium Chloride 250 ML 125 MG IV (23:12)
--- NOTE | 2021-05-25 01:03 | PC.NURSE ---
PT CALL JON IN PLACE REPORT GIVEN TO JASON KNOX.
[2021-05-25 06:33] VITALS: BP 168/103; PULSE 81; RESP 20; TEMP 36; O2SAT 92
[2021-05-25 07:44] LABS: MANUAL DIFF FLAG NO
[2021-05-25 07:46] LABS: Basophils Percent Auto 0.3 % (0-2); Eosinophils Percent Auto 0.6 % (0-4); Hematocrit 43.5 % (42.0-52.0); Hemoglobin 14.2 g/dl (14.0-18.0); Imm Gran Abs Auto 0.02 X10*3/uL (0.00-0.03); Imm Gran Pct Auto 0.6 % (0.0-0.4); Lymphocytes Absolute Auto 0.7 X10*3/uL (1.2-4.9); Lymphocytes Percent Auto 19.1 % (20-40); Mean Corpuscular HGB Conc 32.6 g/dl (31.0-36.0); Mean Corpuscular Hemoglobin 30.7 pg (27.0-33.0); Mean Platelet Volume 9.9 fL (9.4-12.4); Monocytes Absolute Auto 0.2 X10*3/uL (0.1-1.2); Neutrophils Absolute Auto 2.7 x10*3/uL (2.0-8.3); Neutrophils Percent Auto 74.4 % (45-73); Platelet Count 154 X10*3/uL (160-400); Red Blood Count 4.63 X10*6/uL (4.60-5.80); Red Cell Distribution Width 12.5 % (11.0-16.0); White Blood Count 3.6 X10*3/uL (4.8-10.8)
[2021-05-25 08:07] LABS: Anion Gap 10 (12-20); Blood Urea Nitrogen 14 mg/dL (9-16); Calcium 8.7 mg/dL (8.4-10.2); Carbon Dioxide 32 mmol/L (22-29); Chloride 103 mmol/L (96-108); Creatinine Clr Calc Pharmacy 137.4; Estimated Glomerular Filt Rate > 60; Glucose Random 163 mg/dL (60-115); Potassium 4.5 mmol/L (3.3-5.1); Sodium 140 mmol/L (135-145)
[2021-05-25] MEDS: Ascorbic Acid 500 MG TABLET PO (08:23)
[2021-05-25] MEDS: allopurinoL 100 MG TABLET 200 MG PO (08:24)
[2021-05-25] MEDS: dexAMETHasone sod phosphate 4 MG/ML VIAL 6 MG IVPUSH (08:24)
[2021-05-25] MEDS: 0.9 % Sodium Chloride Flush 3 ML SYRINGE IVFLUSH (08:40)
[2021-05-25] MEDS: Zinc Sulfate 220 MG CAPSULE PO (09:04)
[2021-05-25 10:04] VITALS: PULSE 88; O2SAT 92
--- NOTE | 2021-05-25 12:18 | P.DS_ITS ---
DS: Providers Provider Date of Service: 05/25/21 Date of admission: 05/24/21 22:04 Primary care physician: Unknown Physician DS: Diagnosis Discharge Diagnosis (1) COVID-19: Status: Acute (2) Acute respiratory failure with hypoxia: Status: Acute DS: Summary Hospital Course Hospital Course: Chief Complaint:? shortness of breath 55-year-old male with history of gout? who presents to the hospital with complaints of shortness of breath as well as cough for the past 2 days.? Patient reports that he was diagnosed with COVID-19 on Sunday after having symptoms since Sunday.? He has cough, sore throat, body aches, and decided to come to the hospital because generally not feeling well.? He denies any fever but has a chill, he has generalized abdominal pain but has now improved, denies having any chest pain,? no headache or change in vision, no urinary symptoms and no lower extremity edema. ?on arrival to the ED patient noted to be hypoxic on ambulation with O2 dropping to 88%,? his other vitals stable ?labs are significant for WBC count of 4.2, home otherwise unremarkable. CT angiogram shows no PE, and mild mosaic attenuation of lung parenchyma consistent with small airway disease ?patient will be admitted for further management Hospital course 55-year-old gentleman with no significant past medical history other than gout presented to [facility] due to shortness of breath of few days duration recently diagnosed to have COVID-19 infection 48 hours ago patient noted to have hypoxia with ambulation oxygenation dropped to 88% therefore admitted to [facility] with acute hypoxic respiratory failure related to COVID-19 infection, patient treated with IV steroids, this morning patient is doing fine has mild cough productive of white phlegm denies shortness of breath, home O2 eval was obtained patient does not qualify for home oxygen, since he is hemodynamically straight full tolerating diet with no fevers, no CTA chest showed no PE therefore he is being discharged home on by mouth dexamethasone for total 10 days as well as Pepcid for GI prophylaxis, white man C and zinc supplement he has been recommended to return to [facility] with any worsening shortness of breath chest pain lightheadedness or dizziness PE is recommended isolation for 1 more week. Time Spent with Patient Time attestation: Total time spent providing and/or coordinating discharge services: Discharge coordination time: Greater than 30 minutes Quality: Stroke Does the patient have a stroke diagnosis?: No Physical Exam Vital Signs: Vital Signs: Last Vital Signs Temp 96.8 F 05/25/21 06:33 Pulse 81 05/25/21 06:33 Resp 20 05/25/21 06:33 BP 168/103 H 05/25/21 06:33 Pulse Ox 92 05/25/21 06:33 BMI result Body Mass Index 51.7 General awake alert x3,no acute distress. Neck no JVD. CVS regular rate rhythm, Respiratory lungs clear to auscultation, no respiratory distress, no wheeze, no rhonchi. Gastrointestinal abdomen soft, obese, nontender, bowel sounds audible Extremities no Neuro nonfocal Skin no rash Psych appropriate affect DS: Data Data Completed and Pending Labs on day of discharge: Laboratory Results - last 24 hr 05/24/21 05/24/21 05/24/21 18:19 18:19 18:19 WBC 4.2 L RBC 4.50 L Hgb 14.0 Hct 43.0 MCV 95.6 MCH 31.1 MCHC 32.6 RDW 12.7 Plt Count 139 L MPV 10.2 Immature Gran % (Auto) 0.2 Neut % (Auto) 34.0 L Lymph % (Auto) 49.3 H [place] % (Auto) 14.1 H Eos % (Auto) 2.2 Baso % (Auto) 0.2 Lymph # (Auto) 2.1 [place] # (Auto) 0.6 Eos # (Auto) 0.1 Baso # (Auto) 0.0 Abs Immat Gran (auto) 0.01 Absolute Neuts (auto) 1.4 L Absolute Nucleated RBC 0.000 Nucleated RBC % (auto) 0.0 Hold Purple Top SEE NOTE PT 11.4 INR 1.0 Sodium Potassium Chloride Carbon Dioxide Anion Gap BUN Creatinine Estim Creat Clear Calc Estimated GFR Random Glucose Lactic Acid Calcium Magnesium Total Bilirubin AST ALT Alkaline Phosphatase Troponin I High Sens B-Natriuretic Peptide Total Protein Albumin 05/24/21 05/24/21 05/24/21 18:19 18:19 21:53 WBC RBC Hgb Hct MCV MCH MCHC RDW Plt Count MPV Immature Gran % (Auto) Neut % (Auto) Lymph % (Auto) [place] % (Auto) Eos % (Auto) Baso % (Auto) Lymph # (Auto) [place] # (Auto) Eos # (Auto) Baso # (Auto) Abs Immat Gran (auto) Absolute Neuts (auto) Absolute Nucleated RBC Nucleated RBC % (auto) Hold Purple Top PT INR Sodium 141 Potassium 3.5 Chloride 102 Carbon Dioxide 32 H Anion Gap 11 L BUN 14 Creatinine 0.95 Estim Creat Clear Calc 131.6 Estimated GFR > 60 Random Glucose 112 Lactic Acid 1.9 Calcium 8.3 L Magnesium 2.0 Total Bilirubin 0.3 AST 28 ALT 27 Alkaline Phosphatase 83 Troponin I High Sens 5.8 B-Natriuretic Peptide 12 Total Protein 6.4 L Albumin 3.8 05/24/21 05/25/21 05/25/21 21:53 07:39 07:39 WBC 3.6 L RBC 4.63 Hgb 14.2 Hct 43.5 MCV 94.0 MCH 30.7 MCHC 32.6 RDW 12.5 Plt Count 154 L MPV 9.9 Immature Gran % (Auto) 0.6 H Neut % (Auto) 74.4 H Lymph % (Auto) 19.1 L [place] % (Auto) 5.0 Eos % (Auto) 0.6 Baso % (Auto) 0.3 Lymph # (Auto) 0.7 L [place] # (Auto) 0.2 Eos # (Auto) 0.0 Baso # (Auto) 0.0 Abs Immat Gran (auto) 0.02 Absolute Neuts (auto) 2.7 Absolute Nucleated RBC 0.000 Nucleated RBC % (auto) 0.0 Hold Purple Top PT INR Sodium 140 Potassium 4.5 D Chloride 103 Carbon Dioxide 32 H Anion Gap 10 L BUN 14 Creatinine 0.91 Estim Creat Clear Calc 137.4 Estimated GFR > 60 Random Glucose 163 H D Lactic Acid Calcium 8.7 Magnesium Total Bilirubin AST ALT Alkaline Phosphatase Troponin I High Sens 6.8 B-Natriuretic Peptide Total Protein Albumin Discharge Plan Discharge Patient Disposition: Home, Self-Care Discharge Diagnosis: Acute hypoxic respiratory failure due to COVID-19 Referrals: Physician,Unknown J [Primary Care Provider] - 1 Week Discharge Medications: New dextromethorphan-guaifenesin 10-100 mg/5 mL Syrup 10 ml PO Q6H PRN (Reason: Cough) Qty: 240 RF: 0 famotidine 20 mg Tablet 20 mg PO BID Qty: 30 RF: 0 ascorbic acid (vitamin C) [Vitamin C] 500 mg Tablet 500 mg PO DAILY Qty: 30 RF: 0 zinc sulfate [Zinc-220] 50 mg zinc (220 mg) Capsule 220 mg PO DAILY Qty: 30 RF: 0 dexamethasone 6 mg tablet 6 mg PO DAILY Qty: 9 RF: 0 Continued allopurinol 100 mg tablet 2 tab PO DAILY RF: 0 Discharge Orders: Discharge Order (Routine); Ordered 05/25/21 Ordered By: Briseyda Lam Diet: advance to usual diet Activity on Discharge: As tolerated Stand Alone Forms: Patient Portal Discharge page Care Plan Goals: COVID-19 infection, stable oxygen at present, take medications as prescribed, return to check with any worsening shortness of breath lightheadedness dizziness or chest pain Continue to wear mask/continue isolation for 1 week. Health Concerns: Take home medication Plan of Treatment: Outpatient follow-up with primary care physician in next 7-10 days Assessment: As above
--- NOTE | 2021-05-25 12:32 | MHC.CM.PN ---
pt dcd home where he lives with family no services ordered by
== END 2021-05-25 13:11 | disposition home or self-care (01) | DRG 177 ==
LOC: HO.ED 18:13 → HO.EDOVER 22:45
PROVIDERS: Physician Assistant; Physician Assistant Medical; Admitting Provider Internal Medicine; Emergency Provider Emergency Medicine Emergency Medical Services; Visit Provider Hospitalist
DX: U07.1 COVID-19 (principal); J12.82 Pneumonia due to coronavirus disease 2019; J96.01 Acute respiratory failure with hypoxia; M10.9 Gout, unspecified; E78.5 Hyperlipidemia, unspecified; Z79.899 Other long term (current) drug therapy
CPT/HCPCS: 36415; 71045; 71275; 80048; 80053; 83605; 83735; 83880; 84484; 85025; 85610; 87040; 93005; 94640; 94644; 96365; 96367; 96375; 99284; 99285; J0456; J0696; J1100; Q9967

== ENCOUNTER 2021-05-29 06:07 | Inpatient (IN) | payer OTHER, SELFPAY ==
[2021-05-29] VITALS (9 sets, daily range): BP systolic 120–142; BP diastolic 58–83; PULSE 62–86; RESP 14–24; TEMP 37–39.2; O2SAT 86–95; BMI 51.7
--- NOTE | ~2021-05-29 | XR_ITS ---
EXAMINATION: XR CHEST CLINICAL INFORMATION: Covid positive. COMPARISON: Chest 05/24/2021 TECHNIQUE: Frontal view of the chest was obtained. FINDINGS: The lungs are somewhat expanded and clear of acute process. The heart size is borderline normal. Pulmonary vascularity is normal. No gross bony abnormality. XR/XR chest 1V IMPRESSION: No acute cardiopulmonary process seen. No change from 05/24/2021.
--- NOTE | 2021-05-29 07:52 | ED_ITS ---
HPI - SOB/Dyspnea General Chief Complaint: Upper Respiratory Symptoms Stated Complaint: COUGH (COVID+) Time Seen by Provider: 05/29/21 07:36 Source: patient Mode of arrival: EMS History of Present Illness HPI Narrative: this is 55 years old male Diagnosed with Covid 19 ,discharged from the hospital on May presented by ambulance because increasing shortness of breath and fever MD elicited complaint: shortness of breath and cough Pertinent past history: other (obesity) Onset (ago): week(s) (1) Timing: constant Severity: moderate Relieving factors: nothing Related Data Home Medications Medication Instructions Recorded Confirmed allopurinol 100 mg tablet 2 tab PO DAILY 05/24/21 05/29/21 Previous Rx's Medication Instructions Recorded ascorbic acid (vitamin C) 500 mg 500 mg PO DAILY #30 tab 05/25/21 tablet (Vitamin C) dexamethasone 6 mg tablet 6 mg PO DAILY #9 tab 05/25/21 famotidine 20 mg tablet 20 mg PO BID #30 tab 05/25/21 zinc sulfate 50 mg zinc (220 mg) 220 mg PO DAILY #30 cap 05/25/21 capsule (Zinc-220) Allergies Allergy/AdvReac Type Severity Reaction Status Date / Time No Known Allergies Allergy Verified 05/24/21 16:03 Review of Systems Review of Systems: Yes all other systems are reviewed and are negative Constitutional: Constitutional: Reports body ache(s) ENT: Reports system reviewed and no additional complaints, except as documented Cardiovascular: Cardiovascular: Reports no additional cardiovascular complaints and Reports dyspnea Respiratory: Respiratory: Denies cough and Reports dyspnea PMFSH Past Medical History Attestation statement: The following information was validated with the patient. Medical History Arthritis Gout Hyperlipidemia Surgical History H/O hernia repair Family History Family History Other No significant family history Social History Social History Patient Tobacco Use Status: Never used Tobacco Use of substances other than those prescribed or required for medical reasons: No Advance Directives: No Advance Directives Information Provided: Yes service: No Physical Exam Vital Signs: Vital Signs: Last Vital Signs Temp 100.3 F 05/29/21 10:45 Pulse 65 05/29/21 10:45 Resp 18 05/29/21 10:45 BP 127/78 05/29/21 10:45 Pulse Ox 95 05/29/21 10:45 BMI result Body Mass Index 51.7 Const: General: cooperative HENMT: Head: Yes normal to inspection Face and sinus: Yes normal facial exam Mouth: Normal oral and palatal mucosa present Neck: Neck: Yes normal visual inspection Chest: Chest palpation & inspection: normal inspection of the chest Resp: Effort & Inspection: normal respiratory effort Auscultation: clear to auscultation bilaterally Cardio: Jugular venous distension: no JVD Rate: regular rate Rhythm: r egular rhythm GI: Inspection: Yes normal to inspection Palpation (GI): Soft to palpation Percussion: Yes normal to percussion Skin: General skin exam: no rashes or lesions noted and elasticity normal Course Reevaluation(s) Reevaluation #1: remain stable on 02,spoke with hospitalist MDM - SOB/Dyspnea MDM Narrative Medical decision making narrative: pt is covid positive,desat in the ED 88% RA will need admission Lab Data Attestation: I reviewed the patient's lab results. Result diagrams: 05/29/21 08:04 05/29/21 08:04 Labs: Lab Results 05/29/21 05/29/21 05/29/21 Range/Units 08:04 08:04 08:04 WBC 7.8 (4.8-10.8) X10*3/uL RBC 4.59 L (4.60-5.80) X10*6/uL Hgb 14.3 (14.0-18.0) g/dl Hct 42.7 (42.0-52.0) % MCV 93.0 (80.0-98.0) fL MCH 31.2 (27.0-33.0) pg MCHC 33.5 (31.0-36.0) g/dl RDW 12.8 (11.0-16.0) % Plt Count 146 L (160-400) X10*3/uL MPV 10.3 (9.4-12.4) fL Immature Gran % (Auto) 0.8 H (0.0-0.4) % Neut % (Auto) 64.8 (45-73) % Lymph % (Auto) 22.4 (20-40) % [place] % (Auto) 11.6 H (2-11) % Eos % (Auto) 0.1 (0-4) % Baso % (Auto) 0.3 (0-2) % Lymph # (Auto) 1.7 (1.2-4.9) X10*3/uL [place] # (Auto) 0.9 (0.1-1.2) X10*3/uL Eos # (Auto) 0.0 (0.0-0.4) X10*3/uL Baso # (Auto) 0.0 (0.0-0.2) X10*3/uL Abs Immat Gran (auto) 0.06 H (0.00-0.03) X10*3/uL Absolute Neuts (auto) 5.1 (2.0-8.3) x10*3/uL Absolute Nucleated RBC 0.000 (0.0-0.012) X10*3/uL Nucleated RBC % (auto) 0.0 (0.0-0.2) /100WBC PT 13.4 H (9.9-13.0) SEC INR 1.2 H (0.9-1.1) D-Dimer High Sensitivty 360 NG/ML Sodium 135 (135-145) mmol/L Potassium 3.8 (3.3-5.1) mmol/L Chloride 97 (96-108) mmol/L Carbon Dioxide 29 (22-29) mmol/L Anion Gap 13 (12-20) BUN 18 H (9-16) mg/dL Creatinine 1.15 (0.5-1.4) mg/dL Estim Creat Clear Calc 108.7 Estimated GFR > 60 Random Glucose 101 D (60-115) mg/dL Calcium 8.3 L (8.4-10.2) mg/dL Total Bilirubin 0.8 (0.0-1.0) mg/dL AST 29 (5-37) U/L ALT 48 H (0-40) U/L Alkaline Phosphatase 74 (39-117) U/L Total Protein 6.4 L (6.5-8.0) g/dL Albumin 3.7 (3.5-5.0) g/dL Discharge Plan Discharge Clinical Impression: Hypoxia, COVID-19 virus infection Patient Disposition: Admitted As Inpatient
[2021-05-29 08:19] LABS: PLT CLUMP 1; SCAN SMEAR FLAG 1
[2021-05-29 08:20] LABS: Basophils Percent Auto 0.3 % (0-2); Eosinophils Percent Auto 0.1 % (0-4); Hematocrit 42.7 % (42.0-52.0); Hemoglobin 14.3 g/dl (14.0-18.0); Imm Gran Abs Auto 0.06 X10*3/uL (0.00-0.03); Imm Gran Pct Auto 0.8 % (0.0-0.4); Lymphocytes Absolute Auto 1.7 X10*3/uL (1.2-4.9); Lymphocytes Percent Auto 22.4 % (20-40); Mean Corpuscular HGB Conc 33.5 g/dl (31.0-36.0); Mean Corpuscular Hemoglobin 31.2 pg (27.0-33.0); Mean Platelet Volume 10.3 fL (9.4-12.4); Monocytes Absolute Auto 0.9 X10*3/uL (0.1-1.2); Monocytes Percent Auto 11.6 % (2-11); Neutrophils Absolute Auto 5.1 x10*3/uL (2.0-8.3); Neutrophils Percent Auto 64.8 % (45-73); Platelet Count 146 X10*3/uL (160-400); Red Blood Count 4.59 X10*6/uL (4.60-5.80); Red Cell Distribution Width 12.8 % (11.0-16.0); White Blood Count 7.8 X10*3/uL (4.8-10.8)
[2021-05-29 08:21] LABS: INTERNATIONAL NORM RATIO 1.2 (0.9-1.1); MANUAL DIFF FLAG NO; Prothrombin Time 13.4 SEC (9.9-13.0)
[2021-05-29] MEDS: Acetaminophen 325 MG TABLET 650 MG PO (08:25)
[2021-05-29 08:26] LABS: Alanine Aminotransferase 48 U/L (0-40); Albumin Level 3.7 g/dL (3.5-5.0); Alkaline Phosphatase 74 U/L (39-117); Anion Gap 13 (12-20); Aspartate Amino Transferase 29 U/L (5-37); Bilirubin Total 0.8 mg/dL (0.0-1.0); Blood Urea Nitrogen 18 mg/dL (9-16); Calcium 8.3 mg/dL (8.4-10.2); Carbon Dioxide 29 mmol/L (22-29); Chloride 97 mmol/L (96-108); Creatinine Clr Calc Pharmacy 108.7; Estimated Glomerular Filt Rate > 60; Glucose Random 101 mg/dL (60-115); Potassium 3.8 mmol/L (3.3-5.1); Sodium 135 mmol/L (135-145); Total Protein 6.4 g/dL (6.5-8.0)
--- NOTE | 2021-05-29 08:33 | PC.NURSE ---
pt's oxygen at 86% on room air while sleeping in bed, ls clear at this time, sinus on the monitor, pt's work of breathing slightly increased, and pt reports feeling sob as well. pt also reports abd only when coughing. pt put on2l oxygen via nasal cannual, sating at 96% on 2l
--- NOTE | 2021-05-29 10:46 | PHA.MEDREC ---
Pharmacy Consult ? Medication Reconciliation Pharmacy has reviewed the medication reconciliation by Jonna. There are no remarkable issues for provider's attention. Angelina Jenkins, MiltonD
[2021-05-29 11:27] LABS: D Dimer High Sensitivity 360 NG/ML
--- NOTE | 2021-05-29 11:37 | P.HPHOSP_ITS ---
History of Present Illness Date of Service: 05/29/21 Chief Complaint: dyspnea 55yo morbidly obese M with gout, not vaccinated against COVID-19, who had onset of cough, sore throat, dyspnea, and myalgias on 05/21/21 and tested positive for COVID-19 on 05/23/21. He was admitted to [facility] [place] 05/24-05/25/21 for hypoxia related to COVID-19 infection and was treated with, and discharged on, dexamethasone. He presents today again with worsening cough, dyspnea, and fever. Here he is found to be febrile to 102.5 and tachypneic to 22. Room air SaO2 is 86%. Endorses anosmia. Denies chest pain, nausea, vomiting, or abdominal pain. Lives with roommates, none of whom are ill. Review of Systems Review of Systems: Yes all other systems are reviewed and are negative [facility] Medical History Arthritis Gout Hyperlipidemia Family History Other No significant family history Surgical History H/O hernia repair Social History Patient Tobacco Use Status: Never used Tobacco Use of substances other than those prescribed or required for medical reasons: No Advance Directives: No Advance Directives Information Provided: Yes service: No Meds Allergies Allergy/AdvReac Type Severity Reaction Status Date / Time No Known Allergies Allergy Verified 05/24/21 16:03 Active Medications: Current Medications Acetaminophen (Acetaminophen 325 Mg Tablet) 650 mg PO Q6H PRN PRN Reason: Pain, Mild (Pain Scale 1-3) Allopurinol (Allopurinol 100 Mg Tablet) 200 mg PO DAILY [facility] Ascorbic Acid (Ascorbic Acid 500 Mg Tablet) 500 mg PO DAILY [facility] Dexamethasone Sodium Phosphate (Dexamethasone Sod Phosphate 4 Mg/Ml Vial) 6 mg IVPUSH DAILY [facility] Stop: 06/02/21 09:01 Enoxaparin Sodium (Enoxaparin Sodium 40 Mg/0.4 Ml Syringe) 40 mg SUBCUT Q24H [facility] Famotidine (Famotidine 20 Mg Tablet) 20 mg PO BID [facility] Ondansetron HCl (Ondansetron Hcl 4 Mg/2 Ml Vial) 4 mg IVPUSH Q8H PRN PRN Reason: Nausea and Vomiting Pharmacy Consult (Consult Rx Perform Med Rec) 1 each MISCELLANE ONCE PRN PRN Reason: Consult order Sodium Chloride (0.9 % Sodium Chloride Flush 3 Ml Syringe) 3 ml IVFLUSH QSHIFT PENDING SALE TO [facility] Zinc Sulfate (Zinc Sulfate 220 Mg Capsule) 220 mg PO DAILY [facility] Home Medications Medication Instructions Recorded Confirmed Last Taken Type allopurinol 100 mg tablet 2 tab PO DAILY 05/24/21 05/29/21 05/24/21 14:00 History Physical Exam Vital Signs and Narrative: Vital Signs: Last Vital Signs Temp 100.3 F 05/29/21 10:45 Pulse 65 05/29/21 10:45 Resp 18 05/29/21 10:45 BP 127/78 05/29/21 10:45 Pulse Ox 95 05/29/21 10:45 BMI result .phy Body Mass Ind ex 51.7 Gen: in no acute distress though tired-appearing HEENT: sclera anicteric, moist mucus membranes Neck: supple Lungs: clear to auscultation bilaterally Heart: regular rate and rhythm, no murmurs Abd: soft, non-tender, non-distended, morbidly obese Ext: no edema Skin: warm/well-perfused Neuro: alert and oriented x3, no focal findings Psych: appropriate affect Results Labs CBC and Chem 7: 05/29/21 08:04 05/29/21 08:04 Labs: Laboratory Results - last 24 hr 05/29/21 05/29/21 05/29/21 08:04 08:04 08:04 MCV 93.0 MCH 31.2 MCHC 33.5 RDW 12.8 Plt Count 146 L MPV 10.3 Immature Gran % (Auto) 0.8 H Neut % (Auto) 64.8 Lymph % (Auto) 22.4 [place] % (Auto) 11.6 H Eos % (Auto) 0.1 Baso % (Auto) 0.3 Lymph # (Auto) 1.7 [place] # (Auto) 0.9 Eos # (Auto) 0.0 Baso # (Auto) 0.0 Abs Immat Gran (auto) 0.06 H Absolute Neuts (auto) 5.1 Absolute Nucleated RBC 0.000 Nucleated RBC % (auto) 0.0 PT 13.4 H INR 1.2 H D-Dimer High Sensitivty 360 Anion Gap 13 Estim Creat Clear Calc 108.7 Estimated GFR > 60 Random Glucose 101 D Calcium 8.3 L Total Bilirubin 0.8 AST 29 ALT 48 H Alkaline Phosphatase 74 Total Protein 6.4 L Albumin 3.7 Imaging Radiologist's Impressions: Impressions Chest X-Ray 05/29/21 07:53 IMPRESSION: No acute cardiopulmonary process seen. No change from 05/24/2021. Assessment and Plan (1) COVID-19 virus infection: Status: Acute (2) Viral sepsis: Status: Acute (3) Acute respiratory failure with hypoxia: Status: Acute 55yo M with morbid obesity and gout with onset of COVID-19 symptoms on 05/21/21 [9 days ago], admitted here 05/24-05/25/21 with mild hypoxia and treated with dexamethasone, presenting today with worsening cough, dyspnea, and fever, and found to be hypoxic. # acute hypoxic respiratory failure # COVID-19 pneumonia # viral sepsis - [place] [facility] [place], continue dexamethasone d#12/02, consult ID, check/trend inflammatory markers, supplemental O2, encourage awake proning # gout - Continue allopurinol # VTE ppx - LMWH + SCDs # code - Full code Quality Stroke Does the patient have a stroke diagnosis?: No VTE Prior VTE?: No VTE Risk Level:: Medical - moderate - high VTE Device Contraindication: N/A - Device Ordered VTE Drug Contraindication: N/A - Med Ordered
[2021-05-29] MEDS: Enoxaparin Sodium 40 MG/0.4 ML SYRINGE SUBCUT (11:55)
[2021-05-29] MEDS: dexAMETHasone sod phosphate 4 MG/ML VIAL 6 MG IVPUSH (11:55)
[2021-05-29 12:01] LABS: C Reactive Protein 4.31 mg/dL (< or = 0.50)
[2021-05-29 12:04] LABS: Lactate Dehydrogenase 248 U/L (118-273)
[2021-05-29 12:25] LABS: Ferritin 242 ng/mL (20-250)
[2021-05-29 12:31] LABS: COVID-19 Test Positive (Negative)
[2021-05-29 12:32] LABS: Procalcitonin 0.12 ng/mL
[2021-05-29] MEDS: 0.9 % Sodium Chloride Flush 3 ML SYRINGE IVFLUSH ×2 (15:55→20:09)
--- NOTE | 2021-05-29 15:55 | PC.NURSE ---
pt is currently sleeping, respirations even and unlabored, sating at 97% on 2l, ns on the monitor pt continuos on awaiting room assignment
--- NOTE | 2021-05-29 18:52 | PC.NURSE ---
REPORT GIVEN TO [facility] RN
[2021-05-29] MEDS: Famotidine 20 MG TABLET PO (20:09)
[2021-05-30 03:19] VITALS: BP 137/88; PULSE 68; RESP 20; TEMP 36.9; O2SAT 98
[2021-05-30 03:38] LABS: Estimated Average Glucose 126 mg/dL
[2021-05-30 05:43] LABS: Hematocrit 43.7 % (42.0-52.0); Hemoglobin 14.4 g/dl (14.0-18.0); Mean Corpuscular Hemoglobin 30.6 pg (27.0-33.0); Mean Platelet Volume 10.4 fL (9.4-12.4); Platelet Count 146 X10*3/uL (160-400); Red Cell Distribution Width 12.8 % (11.0-16.0); White Blood Count 7.2 X10*3/uL (4.8-10.8)
[2021-05-30 06:02] LABS: Alanine Aminotransferase 43 U/L (0-40); Albumin Level 3.5 g/dL (3.5-5.0); Alkaline Phosphatase 72 U/L (39-117); Anion Gap 12 (12-20); Aspartate Amino Transferase 31 U/L (5-37); Bilirubin Total 0.7 mg/dL (0.0-1.0); Blood Urea Nitrogen 18 mg/dL (9-16); Calcium 8.6 mg/dL (8.4-10.2); Carbon Dioxide 32 mmol/L (22-29); Chloride 97 mmol/L (96-108); Creatinine Clr Calc Pharmacy 131.6; Estimated Glomerular Filt Rate > 60; Glucose Random 91 mg/dL (60-115); Potassium 4.4 mmol/L (3.3-5.1); Sodium 137 mmol/L (135-145); Total Protein 6.4 g/dL (6.5-8.0)
[2021-05-30 07:36] VITALS: BP 171/93; PULSE 83; RESP 18; TEMP 37.7; O2SAT 95
[2021-05-30] MEDS: Zinc Sulfate 220 MG CAPSULE PO (09:10)
[2021-05-30] MEDS: allopurinoL 100 MG TABLET 200 MG PO (09:10)
[2021-05-30] MEDS: Famotidine 20 MG TABLET PO ×2 (09:10→20:12)
[2021-05-30] MEDS: 0.9 % Sodium Chloride Flush 3 ML SYRINGE IVFLUSH ×2 (09:10→15:30)
[2021-05-30] MEDS: dexAMETHasone sod phosphate 4 MG/ML VIAL 6 MG IVPUSH (09:10)
[2021-05-30] MEDS: Ascorbic Acid 500 MG TABLET PO (09:10)
[2021-05-30 11:34] VITALS: BP 152/78; PULSE 85; RESP 18; TEMP 37.6; O2SAT 96
[2021-05-30] MEDS: Enoxaparin Sodium 40 MG/0.4 ML SYRINGE SUBCUT (12:48)
--- NOTE | 2021-05-30 13:59 | MHC.CM.PN ---
Male 55 DX Covid+ He is independent with all functional mobility. HCP documented, placed on chart. Copies have been given to the patient. DP with or without services. Patient will arrange for transportation. Patient not vaccinated.
--- NOTE | 2021-05-30 14:51 | HO.PM.IMPN ---
Subjective Subjective Date of Service: 05/30/21 Interval History: Patient complaining of coughing, shortness of breath and feeling cold, oxygenation remains stable 95% on 3 L. Review of Systems General no headache, no dizziness, complaining of chills CVS no chest pain, no palpitation. Respiratory shortness of breath, dry cough Gastrointestinal no nausea, no vomiting, no abdominal pain no urgency, no frequency Review of Systems: Yes all other systems are reviewed and are negative Physical Exam Vital Signs: Vital Signs: Last Vital Signs Temp 99.7 F 05/30/21 11:34 Pulse 85 05/30/21 11:34 Resp 18 05/30/21 11:34 BP 152/78 H 05/30/21 11:34 Pulse Ox 96 05/30/21 11:34 BMI result Body Mass Index 51.7 General: Awake alert x3, no acute distress , coughing Neck: supple, no JVD Lungs: clear to auscultation bilaterally, occasional wheeze Heart: regular rate and rhythm, no murmurs Abd: soft, non-tender, non-distended, morbidly obese, bowel sounds audible Ext: no edema Skin: No rash Neuro: alert and oriented x3, no focal findings Psych: appropriate affect ? Objective Data Active Medications Acetaminophen (Acetaminophen 325 Mg Tablet) 650 mg PO Q6H PRN PRN Reason: Pain, Mild (Pain Scale 1-3) Allopurinol (Allopurinol 100 Mg Tablet) 200 mg PO DAILY [facility] Last Admin: 05/30/21 09:10 Dose: 200 mg Documented by: MADDIE Ascorbic Acid (Ascorbic Acid 500 Mg Tablet) 500 mg PO DAILY [facility] Last Admin: 05/30/21 09:10 Dose: 500 mg Documented by: MADDIE Dexamethasone Sodium Phosphate (Dexamethasone Sod Phosphate 4 Mg/Ml Vial) 6 mg IVPUSH DAILY [facility] Stop: 06/02/21 09:01 Last Admin: 05/30/21 09:10 Dose: 6 mg Documented by: MADDIE Enoxaparin Sodium (Enoxaparin Sodium 40 Mg/0.4 Ml Syringe) 40 mg SUBCUT Q24H [facility] Last Admin: 05/30/21 12:48 Dose: 40 mg Documented by: MADDIE Famotidine (Famotidine 20 Mg Tablet) 20 mg PO BID [facility] Last Admin: 05/30/21 09:10 Dose: 20 mg Documented by: MADDIE Ondansetron HCl (Ondansetron Hcl 4 Mg/2 Ml Vial) 4 mg IVPUSH Q8H PRN PRN Reason: Nausea and Vomiting Pharmacy Consult (Consult Rx Perform Med Rec) 1 each MISCELLANE ONCE PRN PRN Reason: Consult order Sodium Chloride (0.9 % Sodium Chloride Flush 3 Ml Syringe) 3 ml IVFLUSH QSHIFT [facility] Last Admin: 05/30/21 09:10 Dose: 3 ml Documented by: MADDIE Zinc Sulfate (Zinc Sulfate 220 Mg Capsule) 220 mg PO DAILY [facility] Last Admin: 05/30/21 09:10 Dose: 220 mg Documented by: MADDIE Labs CBC & Chem 7: 05/30/21 05:20 05/30/21 05:20 Labs: Laboratory Results - last 24 hr 05/29/21 05/30/21 05/30/21 08:04 05:20 05:20 MCV 93.0 MCH 30.6 MCHC 33.0 RDW 12.8 Plt Count 146 L MPV 10.4 Absolute Nucleated RBC 0.000 Nucleated RBC % (auto) 0.0 Anion Gap 12 Estim Creat Clear Calc 131.6 Estimated GFR > 60 Random Glucose 91 Estimat Average Glucose 126 Hemoglobin A1c % 6.0 Calcium 8.6 Total Bilirubin 0.7 AST 31 ALT 43 H Alkaline Phosphatase 72 Total Protein 6.4 L Albumin 3.5 Assessment and Plan (1) Viral sepsis: Status: Acute (2) Hypoxia: Status: Acute (3) COVID-19 virus infection: Status: Acute (4) Acute respiratory failure with hypoxia: Status: Acute Assessment and Plan: 55yo M with morbid obesity and gout with onset of COVID-19 symptoms on 05/21/21 [9 days ago], admitted here 05/24-05/25/21 with mild hypoxia and treated with dexamethasone, presenting today with worsening cough, dyspnea, and fever, and found to be hypoxic. # acute hypoxic respiratory failure with viral sepsis due to COVID-19 infection Continue dexamethasone d#01/01, trend inflammatory markers, continue supplemental O2 Add cough medication and as needed albuterol, encourage awake proning PCT 0.12,ddimer 360,crp 4.31 Continue vitamin-C, zinc and Pepcid Await ID input # gout - Continue allopurinol # VTE ppx - LMWH + SCDs # code - Full code Quality Stroke Does the patient have a stroke diagnosis?: No VTE Prior VTE?: No VTE Risk Level:: Medical - moderate - high VTE Device Contraindication: N/A - Device Ordered VTE Drug Contraindication: N/A - Med Ordered
[2021-05-30] MEDS: guaiFENesin DM 100/10/5 ML 5 ML SYRUP 10 ML PO ×2 (15:29→20:12)
[2021-05-30 16:00] VITALS: BP 160/78; PULSE 72; RESP 18; TEMP 36.9; O2SAT 96
[2021-05-30 19:54] VITALS: BP 148/84; PULSE 74; RESP 15; TEMP 37.6; O2SAT 96
--- NOTE | 2021-05-30 22:09 | P.CNID_ITS ---
History of Present Illness Data of Consult Service Date: 05/30/21 Requesting physician: Briseyda Lam Primary Care Provider: Unknown Physician HPI Reason for consult: shortness of breath He started with COVID symptoms on 05/24 and now presents back with shortness of breath worse. He had been on steroids earlier and felt worse He has no fever or chills Review of Systems Review of Systems: Yes all other systems are reviewed and are negative PMFSH Past Medical History Medical History Arthritis Gout Hyperlipidemia Family History Family History Other No significant family history Family history: reviewed and not pertinent Surgical History Surgical History H/O hernia repair Social History Social History Household Members: Other Housing: Condominium Do you presently have visiting nurse or other home services: No Patient Tobacco Use Status: Never used Tobacco Use of substances other than those prescribed or required for medical reasons: No Currently Displaying Signs/Symptoms of Drug Intoxication Withdrawal: No Have you been hit, kicked, punched, or otherwise hurt by someone within the past year? If so, by whom?: No Do you feel safe in your current relationship?: Yes Is there a partner from a previous relationship who is making you feel unsafe now?: No Are you made to feel afraid or neglected: No Advance Directives: No Advance Directives Information Provided: Yes Do you have thoughts of harming others: None Do you have a plan to hurt others: No Plan Recently lost weight without trying: No Nutrition Risks: No Nutritional Risk service: Yes Current occupational status: employed Meds Allergies Allergy/AdvReac Type Severity Reaction Status Date / Time No Known Allergies Allergy Verified 05/24/21 16:03 Active Medications: Current Medications Acetaminophen (Acetaminophen 325 Mg Tablet) 650 mg PO Q6H PRN PRN Reason: Pain, Mild (Pain Scale 1-3) Albuterol Sulfate (Albuterol Sulfate 90 Mcg 8 Gm Inhaler) 4 puff INHALE Q3H PRN PRN Reason: Shortness of Breath Allopurinol (Allopurinol 100 Mg Tablet) 200 mg PO DAILY [facility] Last Admin: 05/30/21 09:10 Dose: 200 mg Documented by: Ascorbic Acid (Ascorbic Acid 500 Mg Tablet) 500 mg PO DAILY [facility] Last Admin: 05/30/21 09:10 Dose: 500 mg Documented by: Dexamethasone Sodium Phosphate (Dexamethasone Sod Phosphate 4 Mg/Ml Vial) 6 mg IVPUSH DAILY [facility] Stop: 06/02/21 09:01 Last Admin: 05/30/21 09:10 Dose: 6 mg Documented by: Enoxaparin Sodium (Enoxaparin Sodium 40 Mg/0.4 Ml Syringe) 40 mg SUBCUT Q24H [facility] Last Admin: 05/30/21 12:48 Dose: 40 mg Documented by: Famotidine (Famotidine 20 Mg Tablet) 20 mg PO BID [facility] Last Admin: 05/30/21 20:12 Dose: 20 mg Documented by: Guaifenesin/Dextromethorphan (Guaifenesin Dm 100/10/5 Ml 5 Ml Syrup) 10 ml PO Q6H [facility] Last Admin: 05/30/21 20:12 Dose: 10 ml Documented by: Ondansetron HCl (Ondansetron Hcl 4 Mg/2 Ml Vial) 4 mg IVPUSH Q8H PRN PRN Reason: Nausea and Vomiting Pharmacy Consult (Consult Rx Perform Med Rec) 1 each MISCELLANE ONCE PRN PRN Reason: Consult order Sodium Chloride (0.9 % Sodium Chloride Flush 3 Ml Syringe) 3 ml IVFLUSH QSHIFT [facility] Last Admin: 05/30/21 15:30 Dose: 3 ml Documented by: Zinc Sulfate (Zinc Sulfate 220 Mg Capsule) 220 mg PO DAILY [facility] Last Admin: 05/30/21 09:10 Dose: 220 mg Documented by: Home Medications Medication Instructions Recorded Confirmed Last Taken Type allopurinol 100 mg tablet 2 tab PO DAILY 05/24/21 05/29/21 05/24/21 14:00 Histo ry Physical Exam Vital Signs: Vital Signs: Last Vital Signs Temp 99.7 F 05/30/21 19:54 Pulse 74 05/30/21 19:54 Resp 15 05/30/21 19:54 BP 148/84 H 05/30/21 19:54 Pulse Ox 96 05/30/21 19:54 BMI result Body Mass Index 51.7 Const: General: cooperative Eyes: General: appearance normal, both eyes and all related structures Pupils: Equal, round and reactive pupils present Resp: Effort & Inspection: normal respiratory effort Cardio: Rate: regular rate Rhythm: regular rhythm GI: Palpation (GI): Soft to palpation and nontender Skin: General skin exam: no rashes or lesions noted Neuro: Cranial nerves: Yes Equal, round and reactive pupils present Results Labs CBC & Chem 7: 05/30/21 05:20 05/30/21 05:20 Labs: Short CBC 05/30/21 Range/Units 05:20 WBC 7.2 (4.8-10.8) X10*3/uL Hgb 14.4 (14.0-18.0) g/dl Hct 43.7 (42.0-52.0) % Plt Count 146 L (160-400) X10*3/uL BMP 05/30/21 05:20 Sodium 137 Potassium 4.4 Chloride 97 Carbon Dioxide 32 H BUN 18 H Creatinine 0.95 Calcium 8.6 Liver Function 05/30/21 Range/Units 05:20 Total Bilirubin 0.7 (0.0-1.0) mg/dL AST 31 (5-37) U/L ALT 43 H (0-40) U/L Alkaline Phosphatase 72 (39-117) U/L Albumin 3.5 (3.5-5.0) g/dL Assessment and Plan (1) COVID-19 virus infection: Status: Acute He feels better He has increasing oxygen saturation He is day 7 COVID (2) Acute respiratory failure with hypoxia: Status: Acute Continue Dexamethasone and oxygen Only consider Remdesivir if worsening hypoxia tomorrow VTE prophylaxis
[2021-05-30 23:55] VITALS: BP 149/92; PULSE 77; RESP 20; TEMP 37.5; O2SAT 93
[2021-05-31] MEDS: 0.9 % Sodium Chloride Flush 3 ML SYRINGE IVFLUSH ×4 (01:48→19:57)
[2021-05-31] MEDS: guaiFENesin DM 100/10/5 ML 5 ML SYRUP 10 ML PO ×4 (03:19→19:57)
[2021-05-31] MEDS: Acetaminophen 325 MG TABLET 650 MG PO ×2 (03:19→08:57)
[2021-05-31 03:40] VITALS: BP 174/81; PULSE 79; RESP 20; TEMP 37.9; O2SAT 90
[2021-05-31 07:39] VITALS: BP 170/76; PULSE 81; RESP 22; TEMP 37.7; O2SAT 90
[2021-05-31] MEDS: Famotidine 20 MG TABLET PO ×2 (08:55→19:57)
[2021-05-31] MEDS: Zinc Sulfate 220 MG CAPSULE PO (08:55)
[2021-05-31] MEDS: Enoxaparin Sodium 40 MG/0.4 ML SYRINGE SUBCUT ×2 (08:55→19:58)
[2021-05-31] MEDS: Ascorbic Acid 500 MG TABLET PO (08:56)
[2021-05-31] MEDS: allopurinoL 100 MG TABLET 200 MG PO (08:56)
[2021-05-31] MEDS: dexAMETHasone sod phosphate 4 MG/ML VIAL 6 MG IVPUSH (08:56)
[2021-05-31 11:44] VITALS: BP 129/62; PULSE 71; RESP 21; TEMP 37.2; O2SAT 93
--- NOTE | 2021-05-31 13:39 | HO.PM.IMPN ---
Subjective Subjective Date of Service: 05/31/21 Interval History: Feeling better this morning, less cough, anxious concern about his prognosis, is on 4 L of oxygen finger oximetry 93, no fever chills overnight Review of Systems General no headache, no dizziness, no fevers, no chills CVS no chest pain, no palpitation.? Respiratory shortness of breath, dry cough improving Gastrointestinal no nausea, no vomiting, no abdominal pain no urgency, no frequency Review of Systems: Yes all other systems are reviewed and are negative . Physical Exam Vital Signs: Vital Signs: Last Vital Signs Temp 98.9 F 05/31/21 11:44 Pulse 71 05/31/21 11:44 Resp 21 H 05/31/21 11:44 BP 129/62 05/31/21 11:44 Pulse Ox 93 05/31/21 11:44 BMI result Body Mass Index 51.7 General:? Awake alert x3, no acute distress Neck: supple, no JVD Lungs: clear to auscultation bilaterally, diminished breath sounds Heart: regular rate and rhythm, no murmurs Abd: soft, non-tender, non-distended, morbidly obese, bowel sounds audible Ext: no edema Skin:? No rash Neuro: alert and oriented x3, no focal findings Psych: appropriate affect ? Objective Data Active Medications Acetaminophen (Acetaminophen 325 Mg Tablet) 650 mg PO Q6H PRN PRN Reason: Pain, Mild (Pain Scale 1-3) Last Admin: 05/31/21 08:57 Dose: 650 mg Documented by: MADDIE Albuterol Sulfate (Albuterol Sulfate 90 Mcg 8 Gm Inhaler) 4 puff INHALE Q3H PRN PRN Reason: Shortness of Breath Allopurinol (Allopurinol 100 Mg Tablet) 200 mg PO DAILY [facility] Last Admin: 05/31/21 08:56 Dose: 200 mg Documented by: MADDIE Ascorbic Acid (Ascorbic Acid 500 Mg Tablet) 500 mg PO DAILY [facility] Last Admin: 05/31/21 08:56 Dose: 500 mg Documented by: MADDIE Dexamethasone Sodium Phosphate (Dexamethasone Sod Phosphate 4 Mg/Ml Vial) 6 mg IVPUSH DAILY [facility] Stop: 06/02/21 09:01 Last Admin: 05/31/21 08:56 Dose: 6 mg Documented by: MADDIE Enoxaparin Sodium (Enoxaparin Sodium 40 Mg/0.4 Ml Syringe) 40 mg SUBCUT Q12H [facility] Last Admin: 05/31/21 08:55 Dose: 40 mg Documented by: MADDIE Famotidine (Famotidine 20 Mg Tablet) 20 mg PO BID [facility] Last Admin: 05/31/21 08:55 Dose: 20 mg Documented by: MADDIE Guaifenesin/Dextromethorphan (Guaifenesin Dm 100/10/5 Ml 5 Ml Syrup) 10 ml PO Q6H [facility] Last Admin: 05/31/21 08:55 Dose: 10 ml Documented by: MADDIE Ondansetron HCl (Ondansetron Hcl 4 Mg/2 Ml Vial) 4 mg IVPUSH Q8H PRN PRN Reason: Nausea and Vomiting Pharmacy Consult (Consult Rx Perform Med Rec) 1 each MISCELLANE ONCE PRN PRN Reason: Consult order Sodium Chloride (0.9 % Sodium Chloride Flush 3 Ml Syringe) 3 ml IVFLUSH QSHIFT [facility] Last Admin: 05/31/21 08:56 Dose: 3 ml Documented by: MADDIE Zinc Sulfate (Zinc Sulfate 220 Mg Capsule) 220 mg PO DAILY [facility] Last Admin: 05/31/21 08:55 Dose: 220 mg Documented by: MADDIE Labs CBC & Chem 7: 05/30/21 05:20 05/30/21 05:20 Assessment and Plan (1) Viral sepsis: Status: Acute (2) Hypoxia: Status: Acute (3) COVID-19 virus infection: Status: Acute (4) Acute respiratory failure with hypoxia: Status: Acute Assessment and Plan: 55yo M with morbid obesity and gout with onset of COVID-19 symptoms on 05/21/21 [9 days ago], admitted here 05/24-05/25/21 with mild hypoxia and treated with dexamethasone, presenting today with worsening cough, dyspnea, and fever, and found to be hypoxic. # acute hypoxic respiratory failure with viral sepsis due to COVID-19 infection Increased oxygen requirement now on 4 L of oxygen finger oximetry 93%, clinically patient feeling better with less cough ?? DC dexamethasone day 8 and placed on IV Solu-Medrol 60 Q 12 hours, gradually wean oxygen as tolerated ?? Continue cough medication and as needed albuterol, encourage proning ?? PCT 0.12,ddimer 360,crp 4.31 ?? Continue? vitamin-C, zinc and Pepcid ?? Case discussed with ID patient does not qualify for remdesivir # gout - Continue allopurinol # VTE ppx - LMWH change Lovenox to b.i.d. # code - Full code Quality Stroke Does the patient have a stroke diagnosis?: No VTE Prior VTE?: No VTE Risk Level:: Medical - moderate - high VTE Device Contraindication: N/A - Device Ordered VTE Drug Contraindication: N/A - Med Ordered
[2021-05-31] MEDS: methylPREDNISolone Sod Succ 125 MG/2 ML VIAL 60 MG IVPUSH (14:31)
[2021-05-31 16:00] VITALS: BP 115/65; PULSE 74; RESP 18; TEMP 36.1; O2SAT 97
[2021-05-31 19:30] VITALS: BP 134/78; PULSE 71; RESP 17; TEMP 36.7; O2SAT 95
[2021-05-31 23:17] VITALS: BP 153/82; PULSE 70; RESP 19; TEMP 36.8; O2SAT 96
[2021-06-01] MEDS: methylPREDNISolone Sod Succ 125 MG/2 ML VIAL 60 MG IVPUSH ×2 (02:08→13:51)
[2021-06-01] MEDS: guaiFENesin DM 100/10/5 ML 5 ML SYRUP 10 ML PO ×4 (02:08→21:06)
[2021-06-01 03:15] VITALS: BP 131/71; PULSE 70; RESP 17; TEMP 36.7; O2SAT 94
[2021-06-01 07:36] VITALS: BP 137/81; PULSE 66; RESP 20; TEMP 36.8; O2SAT 91
[2021-06-01] MEDS: Ascorbic Acid 500 MG TABLET PO (08:55)
[2021-06-01] MEDS: Famotidine 20 MG TABLET PO ×2 (08:55→21:06)
[2021-06-01] MEDS: Enoxaparin Sodium 40 MG/0.4 ML SYRINGE SUBCUT ×2 (08:55→21:06)
[2021-06-01] MEDS: Zinc Sulfate 220 MG CAPSULE PO (08:55)
[2021-06-01] MEDS: allopurinoL 100 MG TABLET 200 MG PO (08:55)
[2021-06-01] MEDS: 0.9 % Sodium Chloride Flush 3 ML SYRINGE IVFLUSH ×2 (08:57→16:16)
[2021-06-01 11:08] VITALS: BP 128/78; PULSE 76; RESP 20; TEMP 36.9; O2SAT 91
--- NOTE | 2021-06-01 12:55 | HO.PM.IMPN ---
Subjective Subjective Date of Service: 06/01/21 Interval History: No change since yesterday, intermittent coughing worse with deep breathing, no fevers no chills still requiring 4 L of oxygen Review of Systems General no headache, no dizziness, no fevers, no chills CVS no chest pain, no palpitation.? Respiratory shortness of breath, dry cough Gastrointestinal no nausea, no vomiting, no abdominal pain no urgency, no frequency Review of Systems: Yes all other systems are reviewed and are negative . Physical Exam Vital Signs: Vital Signs: Last Vital Signs Temp 98.4 F 06/01/21 11:08 Pulse 76 06/01/21 11:08 Resp 20 06/01/21 11:08 BP 128/78 06/01/21 11:08 Pulse Ox 91 L 06/01/21 11:08 BMI result Body Mass Index 51.7 General:? Awake alert x3, no acute distress Neck: supple, no JVD Lungs: Diminished breath sounds, occasional bilateral wheeze , coarse Heart: regular rate and rhythm, no murmurs Abd: soft, non-tender, non-distended, morbidly obese, bowel sounds audible Ext: no edema Skin:? No rash Neuro: alert and oriented x3, no focal findings Psych: appropriate affect Objective Data Active Medications Acetaminophen (Acetaminophen 325 Mg Tablet) 650 mg PO Q6H PRN PRN Reason: Pain, Mild (Pain Scale 1-3) Last Admin: 05/31/21 08:57 Dose: 650 mg Documented by: MADDIE Albuterol Sulfate (Albuterol Sulfate 90 Mcg 8 Gm Inhaler) 4 puff INHALE Q3H PRN PRN Reason: Shortness of Breath Allopurinol (Allopurinol 100 Mg Tablet) 200 mg PO DAILY [facility] Last Admin: 06/01/21 08:55 Dose: 200 mg Documented by: BAM Ascorbic Acid (Ascorbic Acid 500 Mg Tablet) 500 mg PO DAILY [facility] Last Admin: 06/01/21 08:55 Dose: 500 mg Documented by: BAM Enoxaparin Sodium (Enoxaparin Sodium 40 Mg/0.4 Ml Syringe) 40 mg SUBCUT Q12H [facility] Last Admin: 06/01/21 08:55 Dose: 40 mg Documented by: BAM Famotidine (Famotidine 20 Mg Tablet) 20 mg PO BID [facility] Last Admin: 06/01/21 08:55 Dose: 20 mg Documented by: BAM Guaifenesin/Dextromethorphan (Guaifenesin Dm 100/10/5 Ml 5 Ml Syrup) 10 ml PO Q6H [facility] Last Admin: 06/01/21 08:55 Dose: 10 ml Documented by: BAM Methylprednisolone Sodium Succinate (Methylprednisolone Sod Succ 125 Mg/2 Ml Vial) 60 mg IVPUSH Q12H [facility] Last Admin: 06/01/21 02:08 Dose: 60 mg Documented by: BIANCA Ondansetron HCl (Ondansetron Hcl 4 Mg/2 Ml Vial) 4 mg IVPUSH Q8H PRN PRN Reason: Nausea and Vomiting Pharmacy Consult (Consult Rx Perform Med Rec) 1 each MISCELLANE ONCE PRN PRN Reason: Consult order Sodium Chloride (0.9 % Sodium Chloride Flush 3 Ml Syringe) 3 ml IVFLUSH QSHIFT [facility] Last Admin: 06/01/21 08:57 Dose: 3 ml Documented by: BAM Zinc Sulfate (Zinc Sulfate 220 Mg Capsule) 220 mg PO DAILY [facility] Last Admin: 06/01/21 08:55 Dose: 220 mg Documented by: BAM Labs CBC & Chem 7: 05/30/21 05:20 05/30/21 05:20 Assessment and Plan (1) Viral sepsis: Status: Acute (2) Hypoxia: Status: Acute (3) COVID-19 virus infection: Status: Acute (4) Acute respiratory failure with hypoxia: Status: Acute Assessment and Plan: 55yo M with morbid obesity and gout with onset of COVID-19 symptoms on 05/21/21 [9 days ago], admitted here 05/24-05/25/21 with mild hypoxia and treated with dexamethasone, presenting today with worsening cough, dyspnea, and fever, and found to be hypoxic. # acute hypoxic respiratory failure with viral sepsis due to COVID-19 infection ?? No change since yesterday on 4 L of oxygen finger oximetry 93%, coughing with deep breathing ?? s/p dexamethasone x 8 days 8 ,now on IV Solu-Medrol 60 Q 12 hours x 2 days , will add scheduled albuterol MDI q.i.d. gradually wean oxygen as tolerated ?? Continue cough medication and as needed albuterol, encourage proning, out of bed to chair ?? PCT 0.12,ddimer 360,crp 4.31 ?? Continue? vitamin-C, zinc and Pepcid ?? Case discussed with ID patient does not qualify for remdesivir # gout - Continue allopurinol # VTE ppx - LMWH change Lovenox to b.i.d. # code - Full code Quality Stroke Does the patient have a stroke diagnosis?: No VTE Prior VTE?: No VTE Risk Level:: Medical - moderate - high VTE Device Contraindication: N/A - Device Ordered VTE Drug Contraindication: N/A - Med Ordered
[2021-06-01 19:59] VITALS: BP 143/78; PULSE 77; RESP 19; TEMP 37.1; O2SAT 90
[2021-06-01] MEDS: Albuterol Sulfate 90 MCG 8 GM INHALER 2 PUFF INHALE (20:13)
[2021-06-01 20:16] VITALS: PULSE 72; RESP 16; O2SAT 88
[2021-06-02] VITALS (9 sets, daily range): BP systolic 123–170; BP diastolic 63–92; PULSE 66–88; RESP 18–20; TEMP 36.1–37; O2SAT 88–96
[2021-06-02] MEDS: 0.9 % Sodium Chloride Flush 3 ML SYRINGE IVFLUSH ×3 (00:48→19:56)
[2021-06-02] MEDS: methylPREDNISolone Sod Succ 125 MG/2 ML VIAL 60 MG IVPUSH ×3 (02:12→23:38)
[2021-06-02] MEDS: guaiFENesin DM 100/10/5 ML 5 ML SYRUP 10 ML PO ×2 (03:42→08:47)
[2021-06-02 06:48] LABS: C Reactive Protein 7.98 mg/dL (< or = 0.50)
[2021-06-02] MEDS: Enoxaparin Sodium 40 MG/0.4 ML SYRINGE SUBCUT ×2 (08:46→19:55)
[2021-06-02] MEDS: Zinc Sulfate 220 MG CAPSULE PO (08:47)
[2021-06-02] MEDS: Famotidine 20 MG TABLET PO ×2 (08:47→19:56)
[2021-06-02] MEDS: allopurinoL 100 MG TABLET 200 MG PO (08:47)
[2021-06-02] MEDS: Ascorbic Acid 500 MG TABLET PO (08:47)
--- NOTE | 2021-06-02 13:49 | HO.PM.IMPN ---
Subjective Subjective Date of Service: 06/02/21 Interval History: No change in clinical condition persistent dry cough, no fever no chills, oxygen requirement increased to 6 L by nasal cannula finger oximetry 96%, denies chest pain, no palpitations no headache, no dizziness. Review of Systems General no headache, no dizziness, no fevers, no chills CVS no chest pain, no palpitation.? Respiratory shortness of breath, dry cough Gastrointestinal no nausea, no vomiting, no abdominal pain no urgency, no frequency Review of Systems: Yes all other systems are reviewed and are negative . Physical Exam Vital Signs: Vital Signs: Last Vital Signs Temp 98.3 F 06/02/21 11:18 Pulse 66 06/02/21 11:18 Resp 20 06/02/21 11:18 BP 168/87 H 06/02/21 11:18 Pulse Ox 96 06/02/21 11:18 BMI result Body Mass Index 51.7 General:? Awake alert x3, no acute distress Neck: supple, no JVD Lungs:No change in lung exam, Diminished breath sounds, occasional bilateral wheeze Heart: regular rate and rhythm, no murmurs Abd: soft, non-tender, morbidly obese, bowel sounds audible Ext: no edema Skin:? No rash Neuro: alert and oriented x3, no focal findings Psych: appropriate affect Objective Data Active Medications Acetaminophen (Acetaminophen 325 Mg Tablet) 650 mg PO Q6H PRN PRN Reason: Pain, Mild (Pain Scale 1-3) Last Admin: 05/31/21 08:57 Dose: 650 mg Documented by: MADDIE Albuterol Sulfate (Albuterol Sulfate 90 Mcg 8 Gm Inhaler) 4 puff INHALE Q3H PRN PRN Reason: Shortness of Breath Albuterol Sulfate (Albuterol Sulfate 90 Mcg 8 Gm Inhaler) 2 puff INHALE RQID [facility] Last Admin: 06/02/21 13:01 Dose: Not Given Documented by: ALONDRA Non-Admin Reason: rt unavail Allopurinol (Allopurinol 100 Mg Tablet) 200 mg PO DAILY [facility] Last Admin: 06/02/21 08:47 Dose: 200 mg Documented by: MILES Ascorbic Acid (Ascorbic Acid 500 Mg Tablet) 500 mg PO DAILY [facility] Last Admin: 06/02/21 08:47 Dose: 500 mg Documented by: MILES Benzonatate (Benzonatate 100 Mg Capsule) 200 mg PO TID [facility] Enoxaparin Sodium (Enoxaparin Sodium 40 Mg/0.4 Ml Syringe) 40 mg SUBCUT Q12H [facility] Last Admin: 06/02/21 08:46 Dose: 40 mg Documented by: MILES Famotidine (Famotidine 20 Mg Tablet) 20 mg PO BID [facility] Last Admin: 06/02/21 08:47 Dose: 20 mg Documented by: MILES Guaifenesin/Codeine Phosphate (Guaifen/Codeine Sf 200/20/10ml 10 Ml Liquid) 10 ml PO Q6H PRN PRN Reason: Cough Methylprednisolone Sodium Succinate (Methylprednisolone Sod Succ 125 Mg/2 Ml Vial) 60 mg IVPUSH Q12H [facility] Last Admin: 06/02/21 02:12 Dose: 60 mg Documented by: JUNI Ondansetron HCl (Ondansetron Hcl 4 Mg/2 Ml Vial) 4 mg IVPUSH Q8H PRN PRN Reason: Nausea and Vomiting Pharmacy Consult (Consult Rx Perform Med Rec) 1 each MISCELLANE ONCE PRN PRN Reason: Consult order Sodium Chloride (0.9 % Sodium Chloride Flush 3 Ml Syringe) 3 ml IVFLUSH QSHIFT [facility] Last Admin: 06/02/21 08:47 Dose: 3 ml Documented by: MILES Zinc Sulfate (Zinc Sulfate 220 Mg Capsule) 220 mg PO DAILY [facility] Last Admin: 06/02/21 08:47 Dose: 220 mg Documented by: MILES Labs CBC & Chem 7: 05/30/21 05:20 05/30/21 05:20 Labs: Laboratory Results - last 24 hr 06/02/21 06:02 C-Reactive Protein 7.98 H Assessment and Plan (1) COVID-19 virus infection: Status: Acute (2) Hypoxia: Status: Acute (3) Viral sepsis: Status: Acute Assessment and Plan: 55yo M with morbid obesity and gout with onset of COVID-19 symptoms on 05/21/21 [9 days ago], admitted here 05/24-05/25/21 with mild hypoxia and treated with dexamethasone, presenting today with worsening cough, dyspnea, and fever, and found to be hypoxic. # acute hypoxic respiratory failure with viral sepsis due to COVID-19 infection ?? No change in clinical examination, now on 6 L of oxygen finger oximetry 95%, significant coughing episode ?? s/p dexamethasone x 8 days 8 ,now on IV Solu-Medrol 60 Q 12 hours x 3 days , continue scheduled and as needed albuterol MDI ?? gradually wean oxygen as tolerated ?? Continue cough medication, add as needed Robitussin with codeine and as needed albuterol, encourage proning, out of bed to chair ?? PCT 0.12,ddimer 360,crp increased 4.31 to 7.98 ?? Continue? vitamin-C, zinc and Pepcid ?? Seen by ID patient does not qualify for remdesivir # gout - Continue allopurinol # VTE ppx - LMWH change Lovenox to b.i.d. # code - Full code Quality Stroke Does the patient have a stroke diagnosis?: No VTE Prior VTE?: No VTE Risk Level:: Medical - moderate - high VTE Device Contraindication: N/A - Device Ordered VTE Drug Contraindication: N/A - Med Ordered
[2021-06-02] MEDS: guaiFEN/Codeine SF 200/20/10ML 10 ML LIQUID PO ×2 (14:08→19:55)
[2021-06-02] MEDS: Benzonatate 100 MG CAPSULE 200 MG PO ×2 (14:09→19:55)
[2021-06-02] MEDS: Albuterol Sulfate 90 MCG 8 GM INHALER 2 PUFF INHALE ×2 (15:03→20:07)
[2021-06-03] VITALS (10 sets, daily range): BP systolic 128–165; BP diastolic 60–97; PULSE 58–75; RESP 16–25; TEMP 36.1–37.3; O2SAT 87–99
[2021-06-03] MEDS: Albuterol Sulfate 90 MCG 8 GM INHALER 2 PUFF INHALE ×4 (08:42→20:08)
[2021-06-03] MEDS: Ascorbic Acid 500 MG TABLET PO (10:10)
[2021-06-03] MEDS: allopurinoL 100 MG TABLET 200 MG PO (10:10)
[2021-06-03] MEDS: Benzonatate 100 MG CAPSULE 200 MG PO ×3 (10:10→19:57)
[2021-06-03] MEDS: Famotidine 20 MG TABLET PO ×2 (10:10→19:57)
[2021-06-03] MEDS: Zinc Sulfate 220 MG CAPSULE PO (10:10)
[2021-06-03] MEDS: Enoxaparin Sodium 40 MG/0.4 ML SYRINGE SUBCUT ×2 (10:11→19:57)
--- NOTE | 2021-06-03 10:12 | MHC.CM.PN ---
Patient has not yet been medically cleared for dc (IV Solu Medrol & 8L O2). Home is the goal for dc and CM will follow for possible need to adjust the dc plan.
[2021-06-03] MEDS: 0.9 % Sodium Chloride Flush 3 ML SYRINGE IVFLUSH ×3 (10:14→19:57)
--- NOTE | 2021-06-03 11:02 | P.PNIM_ITS ---
Subjective Subjective Date of Service: 06/03/21 Interval History: Being followed for hypoxic respiratory failure due to COVID- 19, patient feels the same no change in last 24-48 hours persistent cough and shortness of breath, increased O2 requirement overnight, Denies fever chills, denies chest pain, no worsening shortness of breath. Review of Systems General no headache, no dizziness, no fevers, no chills CVS no chest pain, no palpitation.? Respiratory shortness of breath, dry cough Gastrointestinal no nausea, no vomiting, no abdominal pain no urgency, no frequency Review of Systems: Yes all other systems are reviewed and are negative Physical Exam Vital Signs: Vital Signs: Last Vital Signs Temp 97.5 F 06/03/21 08:00 Pulse 67 06/03/21 08:54 Resp 20 06/03/21 08:54 BP 151/74 H 06/03/21 08:00 Pulse Ox 97 06/03/21 03:14 BMI result Body Mass Index 51.7 General:? Awake al ert x3, no acute d istress Neck: supp le, no JVD Lungs:N o change in lung e xam, Diminished br eath sounds, occas ional bilateral wh eeze Heart: regula r rate and rhythm, no murmurs Abd: s oft, non-tender, m orbidly obese, bow el sounds audible Ext: no edema Skin :? No rash Neuro: alert and oriented x3, no focal find ings Psych: approp riate affect Objective Data Active Medications Acetaminophen (Acetaminophen 325 Mg Tablet) 650 mg PO Q6H PRN PRN Reason: Pain, Mild (Pain Scale 1-3) Last Admin: 05/31/21 08:57 Dose: 650 mg Documented by: MADDIE Albuterol Sulfate (Albuterol Sulfate 90 Mcg 8 Gm Inhaler) 4 puff INHALE Q3H PRN PRN Reason: Shortness of Breath Albuterol Sulfate (Albuterol Sulfate 90 Mcg 8 Gm Inhaler) 2 puff INHALE RQID [facility] Last Admin: 06/03/21 08:42 Dose: 2 puff Documented by: CHRISTINE Allopurinol (Allopurinol 100 Mg Tablet) 200 mg PO DAILY [facility] Last Admin: 06/03/21 10:10 Dose: 200 mg Documented by: KEVON Ascorbic Acid (Ascorbic Acid 500 Mg Tablet) 500 mg PO DAILY [facility] Last Admin: 06/03/21 10:10 Dose: 500 mg Documented by: KEVON Benzonatate (Benzonatate 100 Mg Capsule) 200 mg PO TID [facility] Last Admin: 06/03/21 10:10 Dose: 200 mg Documented by: KEVON Enoxaparin Sodium (Enoxaparin Sodium 40 Mg/0.4 Ml Syringe) 40 mg SUBCUT Q12H [facility] Last Admin: 06/03/21 10:11 Dose: 40 mg Documented by: KEVON Famotidine (Famotidine 20 Mg Tablet) 20 mg PO BID [facility] Last Admin: 06/03/21 10:10 Dose: 20 mg Documented by: KEVON Guaifenesin/Codeine Phosphate (Guaifen/Codeine Sf 200/20/10ml 10 Ml Liquid) 10 ml PO Q6H PRN PRN Reason: Cough Last Admin: 06/02/21 19:55 Dose: 10 ml Documented by: ANTHONY Methylprednisolone Sodium Succinate (Methylprednisolone Sod Succ 125 Mg/2 Ml V ial) 60 mg IVPUSH Q12H [facility] Last Admin: 06/02/21 23:38 Dose: 60 mg Documented by: ANTHONY Ondansetron HCl (Ondansetron Hcl 4 Mg/2 Ml Vial) 4 mg IVPUSH Q8H PRN PRN Reason: Nausea and Vomiting Pharmacy Consult (Consult Rx Perform Med Rec) 1 each MISCELLANE ONCE PRN PRN Reason: Consult order Sodium Chloride (0.9 % Sodium Chloride Flush 3 Ml Syringe) 3 ml IVFLUSH QSHIFT [facility] Last Admin: 06/03/21 10:14 Dose: 3 ml Documented by: KEVON Zinc Sulfate (Zinc Sulfate 220 Mg Capsule) 220 mg PO DAILY [facility] Last Admin: 06/03/21 10:10 Dose: 220 mg Documented by: KEVON Labs CBC & Chem 7: 05/30/21 05:20 05/30/21 05:20 Assessment and Plan (1) Viral sepsis: Status: Acute (2) Hypoxia: Status: Acute (3) COVID-19 virus infection: Status: Acute Assessment and Plan: 55yo M with morbid obesity and gout with onset of COVID-19 symptoms on 05/21/21 [9 days ago], admitted here 05/24-05/25/21 with mild hypoxia and treated with dexamethasone, presenting today with worsening cough, dyspnea, and fever, and found to be hypoxic. # acute hypoxic respiratory failure with viral sepsis due to COVID-19 infection ?? Persistent shortness of breath and cough, No change since yesterday, finger oximetry 95% ?? s/p dexamethasone x 8 days,now on IV Solu-Medrol 60 Q 12 hours x 4 days , continue scheduled and as needed albuterol MDI ?? gradually wean oxygen as tolerated ?? Continue cough medication, Robitussin with codeine and Tessalon, recommend proning, out of bed to chair ?? PCT 0.12,ddimer 360,crp increased 4.31 to 7.98 ?? Continue? vitamin-C, zinc and Pepcid ?? Seen by ID patient does not qualify for remdesivir Few high blood pressures but baseline BP stable. Continue supportive care as above # gout - Continue allopurinol # VTE ppx - LMWH change Lovenox to b.i.d. # code - Full code Quality Stroke Does the patient have a stroke diagnosis?: No VTE Prior VTE?: No VTE Risk Level:: Medical - moderate - high VTE Device Contraindication: N/A - Device Ordered VTE Drug Contraindication: N/A - Med Ordered
--- NOTE | 2021-06-03 11:41 | PC.RT ---
pt. placed on NRB due to persistently low SpO2, mid 80's. SpO2 88-89% after placement of NRB
[2021-06-03] MEDS: methylPREDNISolone Sod Succ 125 MG/2 ML VIAL 60 MG IVPUSH ×2 (13:39→23:37)
[2021-06-03] MEDS: guaiFEN/Codeine SF 200/20/10ML 10 ML LIQUID PO (19:57)
[2021-06-04] VITALS (8 sets, daily range): BP systolic 128–170; BP diastolic 60–90; PULSE 58–94; RESP 18–20; TEMP 36.2–36.7; O2SAT 76–98
[2021-06-04] MEDS: Albuterol Sulfate 90 MCG 8 GM INHALER 2 PUFF INHALE ×4 (07:38→19:45)
[2021-06-04] MEDS: Enoxaparin Sodium 40 MG/0.4 ML SYRINGE SUBCUT ×2 (08:40→19:43)
[2021-06-04] MEDS: allopurinoL 100 MG TABLET 200 MG PO (08:40)
[2021-06-04] MEDS: 0.9 % Sodium Chloride Flush 3 ML SYRINGE IVFLUSH ×3 (08:40→19:44)
[2021-06-04] MEDS: Ascorbic Acid 500 MG TABLET PO (08:41)
[2021-06-04] MEDS: Zinc Sulfate 220 MG CAPSULE PO (08:41)
[2021-06-04] MEDS: Famotidine 20 MG TABLET PO ×2 (08:41→19:43)
[2021-06-04] MEDS: Benzonatate 100 MG CAPSULE 200 MG PO ×3 (08:41→19:43)
--- NOTE | 2021-06-04 13:37 | HO.PM.IMPN ---
Subjective Subjective Date of Service: 06/04/21 Interval History: Being followed for hypoxic respiratory failure, complaining of persistent shortness of breath and cough , no fevers no chills, tolerated non-rebreather mask yesterday today placed on 55% Ventimask finger oximetry 89-90%, less coughing spells. Review of Systems General no headache, no dizziness, no fevers, no chills CVS no chest pain, no palpitation.? Respiratory shortness of breath, dry cough Gastrointestinal no nausea, no vomiting, no abdominal pain no urgency, no frequency Review of Systems: Yes all other systems are reviewed and are negative Physical Exam Vital Signs: Vital Signs: Last Vital Signs Temp 97.9 F 06/04/21 11:16 Pulse 94 06/04/21 12:32 Resp 20 06/04/21 12:32 BP 128/74 06/04/21 11:16 Pulse Ox 90 L 06/04/21 11:16 BMI result Body Mass Index 51.7 General: Awake alert x3, no acute distress Neck: supple, no JVD Lungs: Better air movement, still diminished BS, occasional wheeze Heart: regular rate and rhythm,?no murmurs Abd: soft, non-tender, morbidly obese, bowel sounds audible Ext: no edema Skin:? No rash Neuro:alert and oriented?x3, no focal findings Psych: appropriate affect Objective Data Active Medications Acetaminophen (Acetaminophen 325 Mg Tablet) 650 mg PO Q6H PRN PRN Reason: Pain, Mild (Pain Scale 1-3) Last Admin: 05/31/21 08:57 Dose: 650 mg Documented by: MADDIE Albuterol Sulfate (Albuterol Sulfate 90 Mcg 8 Gm Inhaler) 4 puff INHALE Q3H PRN PRN Reason: Shortness of Breath Albuterol Sulfate (Albuterol Sulfate 90 Mcg 8 Gm Inhaler) 2 puff INHALE RQID [facility] Last Admin: 06/04/21 12:32 Dose: 2 puff Documented by: CHRISTINE Allopurinol (Allopurinol 100 Mg Tablet) 200 mg PO DAILY [facility] Last Admin: 06/04/21 08:40 Dose: 200 mg Documented by: JAVIER Ascorbic Acid (Ascorbic Acid 500 Mg Tablet) 500 mg PO DAILY [facility] Last Admin: 06/04/21 08:41 Dose: 500 mg Documented by: JAVIER Benzonatate (Benzonatate 100 Mg Capsule) 200 mg PO TID [facility] Last Admin: 06/04/21 08:41 Dose: 200 mg Documented by: JAVIER Enoxaparin Sodium (Enoxaparin Sodium 40 Mg/0.4 Ml Syringe) 40 mg SUBCUT Q12H [facility] Last Admin: 06/04/21 08:40 Dose: 40 mg Documented by: JAVIER Famotidine (Famotidine 20 Mg Tablet) 20 mg PO BID [facility] Last Admin: 06/04/21 08:41 Dose: 20 mg Documented by: JAVIER Guaifenesin/Codeine Phosphate (Guaifen/Codeine Sf 200/20/10ml 10 Ml Liquid) 10 ml PO Q6H PRN PRN Reason: Cough Last Admin: 06/03/21 19:57 Dose: 10 ml Documented by: ANTHONY Methylprednisolone Sodium Succinate (Methylprednisolone Sod Succ 125 Mg/2 Ml Vial) 60 mg IVPUSH Q12H [facility] Last Admin: 06/03/21 23:37 Dose: 60 mg Documented by: ANTHONY Ondansetron HCl (Ondansetron Hcl 4 Mg/2 Ml Vial) 4 mg IVPUSH Q8H PRN PRN Reason: Nausea and Vomiting Pharmacy Consult (Consult Rx Perform Med Rec) 1 each MISCELLANE ONCE PRN PRN Reason: Consult order Sodium Chloride (0.9 % Sodium Chloride Flush 3 Ml Syringe) 3 ml IVFLUSH QSHIFT [facility] Last Admin: 06/04/21 08:40 Dose: 3 ml Documented by: JAVIER Zinc Sulfate (Zinc Sulfate 220 Mg Capsule) 220 mg PO DAILY [facility] Last Admin: 06/04/21 08:41 Dose: 220 mg Documented by: JAVIER Labs CBC & Chem 7: 05/30/21 05:20 05/30/21 05:20 Assessment and Plan (1) Viral sepsis: Status: Acute (2) Hypoxia: Status: Acute (3) COVID-19 virus infection: Status: Acute Assessment and Plan: 55yo M with morbid obesity and gout with onset of COVID-19 symptoms on 05/21/21 [9 days ago], admitted here 05/24-05/25/21 with mild hypoxia and treated with dexamethasone, presenting today with worsening cough, dyspnea, and fever, and found to be hypoxic. # acute hypoxic respiratory failure with viral sepsis due to COVID-19 infection ?? Clinically looks better, Persistent shortness of breath and cough,? No change since yesterday, finger oximetry 89-90% on 55% Ventimask ?? s/p dexamethasone x 8 days,now on IV Solu-Medrol 60 Q 12 hours x 4 days , will wean Solu-Medrol to 40 mg q.12, continue scheduled and as needed albuterol MDI ?? gradually wean oxygen as tolerated ?? Continue cough medication, Robitussin with codeine and Tessalon, strongly recommend proning, out of bed to chair ?? PCT 0.12,ddimer 360,crp increased 4.31 to 7.98 ?? Continue? vitamin-C, zinc and Pepcid ?? Seen by ID patient does not qualify for remdesivir ?? Few high blood pressures but baseline BP stable. ?? Continue supportive care as above Significant volume overloaded will give 40 mg of Lasix x1 # gout - Continue allopurinol # VTE ppx - LMWH change Lovenox to b.i.d. # code - Full code Quality Stroke Does the patient have a stroke diagnosis?: No VTE Prior VTE?: No VTE Risk Level:: Medical - moderate - high VTE Device Contraindication: N/A - Device Ordered VTE Drug Contraindication: N/A - Med Ordered
[2021-06-04] MEDS: methylPREDNISolone Sod Succ 40 MG/ML VIAL IVPUSH ×2 (14:23→23:27)
[2021-06-04] MEDS: Furosemide 40 MG TABLET PO (14:23)
[2021-06-04] MEDS: guaiFEN/Codeine SF 200/20/10ML 10 ML LIQUID PO (19:43)
[2021-06-05] VITALS (8 sets, daily range): BP systolic 124–164; BP diastolic 60–95; PULSE 58–82; RESP 18–20; TEMP 36.1–36.9; O2SAT 89–97
[2021-06-05] MEDS: Albuterol Sulfate 90 MCG 8 GM INHALER 2 PUFF INHALE ×4 (08:10→19:48)
[2021-06-05] MEDS: Benzonatate 100 MG CAPSULE 200 MG PO ×3 (09:50→20:24)
[2021-06-05] MEDS: 0.9 % Sodium Chloride Flush 3 ML SYRINGE IVFLUSH ×3 (09:50→20:26)
[2021-06-05] MEDS: Famotidine 20 MG TABLET PO ×2 (09:50→20:23)
[2021-06-05] MEDS: Zinc Sulfate 220 MG CAPSULE PO (09:50)
[2021-06-05] MEDS: allopurinoL 100 MG TABLET 200 MG PO (09:50)
[2021-06-05] MEDS: Ascorbic Acid 500 MG TABLET PO (09:50)
[2021-06-05] MEDS: Enoxaparin Sodium 40 MG/0.4 ML SYRINGE SUBCUT ×2 (09:51→20:24)
--- NOTE | 2021-06-05 13:19 | HO.PM.IMPN ---
Subjective Subjective Date of Service: 06/05/21 Interval History: Feels better this morning on 12 L of oxygen finger oximetry 90%, less shortness of breath and cough, sitting mostly at edge of bed. Review of Systems General no headache, no dizziness, no fevers, no chills CVS no chest pain, no palpitation.? Respiratory shortness of breath, dry cough improving Gastrointestinal no nausea, no vomiting, no abdominal pain no urgency, no frequency Review of Systems: Yes all other systems are reviewed and are negative Physical Exam Vital Signs: Vital Signs: Last Vital Signs Temp 97.9 F 06/05/21 12:00 Pulse 82 06/05/21 12:00 Resp 20 06/05/21 12:00 BP 124/73 06/05/21 12:00 Pulse Ox 90 L 06/05/21 12:00 BMI result Body Mass Index 51.7 General: Awake alert x3, no acute distress Neck: supple, no JVD Lungs:? Better air movement, still diminished BS, occasional wheeze Heart: regular rate and rhythm,?no murmurs Abd: soft, non-tender, morbidly obese, bowel sounds audible Ext: no edema Skin:? No rash Neuro:alert and oriented?x3, no focal findings Psych: appropriate affect ? Objective Data Active Medications Acetaminophen (Acetaminophen 325 Mg Tablet) 650 mg PO Q6H PRN PRN Reason: Pain, Mild (Pain Scale 1-3) Last Admin: 05/31/21 08:57 Dose: 650 mg Documented by: MADDEI Albuterol Sulfate (Albuterol Sulfate 90 Mcg 8 Gm Inhaler) 4 puff INHALE Q3H PRN PRN Reason: Shortness of Breath Albuterol Sulfate (Albuterol Sulfate 90 Mcg 8 Gm Inhaler) 2 puff INHALE RQID [facility] Last Admin: 06/05/21 11:33 Dose: 2 puff Documented by: CHRISTINE Allopurinol (Allopurinol 100 Mg Tablet) 200 mg PO DAILY [facility] Last Admin: 06/05/21 09:50 Dose: 200 mg Documented by: JAVIER Ascorbic Acid (Ascorbic Acid 500 Mg Tablet) 500 mg PO DAILY [facility] Last Admin: 06/05/21 09:50 Dose: 500 mg Documented by: JAVIER Benzonatate (Benzonatate 100 Mg Capsule) 200 mg PO TID [facility] Last Admin: 06/05/21 09:50 Dose: 200 mg Documented by: JAVIER Enoxaparin Sodium (Enoxaparin Sodium 40 Mg/0.4 Ml Syringe) 40 mg SUBCUT Q12H [facility] Last Admin: 06/05/21 09:51 Dose: 40 mg Documented by: JAVIER Famotidine (Famotidine 20 Mg Tablet) 20 mg PO BID [facility] Last Admin: 06/05/21 09:50 Dose: 20 mg Documented by: JAVIER Guaifenesin/Codeine Phosphate (Guaifen/Codeine Sf 200/20/10ml 10 Ml Liquid) 10 ml PO Q6H PRN PRN Reason: Cough Last Admin: 06/04/21 19:43 Dose: 10 ml Documented by: ANTHONY Methylprednisolone Sodium Succinate (Methylprednisolone Sod Succ 40 Mg/Ml Vial) 40 mg IVPUSH Q12H [facility] Last Admin: 06/04/21 23:27 Dose: 40 mg Documented by: ANTHONY Ondansetron HCl (Ondansetron Hcl 4 Mg/2 Ml Vial) 4 mg IVPUSH Q8H PRN PRN Reason: Nausea and Vomiting Pharmacy Consult (Consult Rx Perform Med Rec) 1 each MISCELLANE ONCE PRN PRN Reason: Consult order Sodium Chloride (0.9 % Sodium Chloride Flush 3 Ml Syringe) 3 ml IVFLUSH QSHIFT [facility] Last Admin: 06/05/21 09:50 Dose: 3 ml Documented by: JAVIER Zinc Sulfate (Zinc Sulfate 220 Mg Capsule) 220 mg PO DAILY [facility] Last Admin: 06/05/21 09:50 Dose: 220 mg Documented by: JAVIER Labs CBC & Chem 7: 05/30/21 05:20 05/30/21 05:20 Assessment and Plan (1) Viral sepsis: Status: Acute (2) COVID-19 virus infection: Status: Acute (3) COVID-19: Status: Acute Assessment and Plan: 55yo M with morbid obesity and gout with onset of COVID-19 symptoms on 05/21/21 [9 days ago], admitted here 05/24-05/25/21 with mild hypoxia and treated with dexamethasone, presenting today with worsening cough, dyspnea, and fever, and found to be hypoxic. # acute hypoxic respiratory failure with viral sepsis due to COVID-19 infection ?? Clinically looks better, persistent mild shortness of breath and cough,? finger oximetry 90% on 12 L ?? s/p dexamethasone x 8 days,now on IV Solu-Medrol 40mg Q 12 hours x 4 days , continue scheduled and as needed albuterol MDI ?? ontinue cough medication, Robitussin with codeine and Tessalon, strongly recommend proning, out of bed to chair ?? PCT 0.12,ddimer 360,crp increased 4.31 to 7.98 ?? Continue? vitamin-C, zinc and Pepcid ?? Seen by ID patient does not qualify for remdesivir ?? Few high blood pressures but baseline BP stable. ?? Continue supportive care as above ?? Significant positive balance will give 1 dose of IV Lasix # gout - Continue allopurinol # VTE ppx - LMWH change Lovenox to b.i.d. # code - Full code Quality Stroke Does the patient have a stroke diagnosis?: No VTE Prior VTE?: No VTE Risk Level:: Medical - moderate - high VTE Device Contraindication: N/A - Device Ordered VTE Drug Contraindication: N/A - Med Ordered
[2021-06-05] MEDS: Furosemide 20 MG TABLET PO (14:48)
[2021-06-05] MEDS: Potassium Chloride ER 20 MEQ TAB.ER.PRT PO (14:48)
[2021-06-05] MEDS: methylPREDNISolone Sod Succ 40 MG/ML VIAL IVPUSH (14:48)
[2021-06-06] VITALS (8 sets, daily range): BP systolic 128–168; BP diastolic 63–95; PULSE 55–90; RESP 18–20; TEMP 36.2–36.6; O2SAT 90–96
[2021-06-06] MEDS: methylPREDNISolone Sod Succ 40 MG/ML VIAL IVPUSH ×2 (03:39→13:19)
[2021-06-06 06:12] LABS: Hematocrit 41.1 % (42.0-52.0); Hemoglobin 13.5 g/dl (14.0-18.0); Mean Corpuscular HGB Conc 32.8 g/dl (31.0-36.0); Mean Corpuscular Hemoglobin 30.3 pg (27.0-33.0); Mean Corpuscular Volume 92.2 fL (80.0-98.0); Platelet Count 262 X10*3/uL (160-400); Red Blood Count 4.46 X10*6/uL (4.60-5.80); Red Cell Distribution Width 11.9 % (11.0-16.0); White Blood Count 11.7 X10*3/uL (4.8-10.8)
[2021-06-06 06:35] LABS: Anion Gap 12 (12-20); Blood Urea Nitrogen 24 mg/dL (9-16); Calcium 8.6 mg/dL (8.4-10.2); Carbon Dioxide 35 mmol/L (22-29); Chloride 92 mmol/L (96-108); Creatinine Clr Calc Pharmacy 162.3; Estimated Glomerular Filt Rate > 60; Glucose Random 248 mg/dL (60-115); Potassium 4.8 mmol/L (3.3-5.1); Sodium 134 mmol/L (135-145)
--- NOTE | 2021-06-06 09:14 | MHC.CM.PN ---
MALE 55 DX COVID+. NO DISCHARGE TODAY. PATIENT CONTINUES TO REQUIRE SUPPLEMENTAL o2. HE HAS WEANED TO 8L. DP HOME NO SERVICES. Pt will arrange for a ride home.
[2021-06-06] MEDS: allopurinoL 100 MG TABLET 200 MG PO (09:42)
[2021-06-06] MEDS: Ascorbic Acid 500 MG TABLET PO (09:42)
[2021-06-06] MEDS: 0.9 % Sodium Chloride Flush 3 ML SYRINGE IVFLUSH ×3 (09:42→20:27)
[2021-06-06] MEDS: Benzonatate 100 MG CAPSULE 200 MG PO ×3 (09:42→20:26)
[2021-06-06] MEDS: Enoxaparin Sodium 40 MG/0.4 ML SYRINGE SUBCUT ×2 (09:42→20:26)
[2021-06-06] MEDS: Famotidine 20 MG TABLET PO ×2 (09:42→20:26)
[2021-06-06] MEDS: guaiFEN/Codeine SF 200/20/10ML 10 ML LIQUID PO (09:42)
[2021-06-06] MEDS: Zinc Sulfate 220 MG CAPSULE PO (09:42)
--- NOTE | 2021-06-06 12:31 | P.PNIM_ITS ---
Subjective Subjective Date of Service: 06/06/21 Interval History: feels less dyspneic denies chest pain no fever Physical Exam Vital Signs: Vital Signs: Last Vital Signs Temp 97.1 F 06/06/21 11:19 Pulse 71 06/06/21 11:19 Resp 18 06/06/21 11:19 BP 128/63 06/06/21 11:19 Pulse Ox 93 06/06/21 11:19 BMI result Body Mass Index 51.7 Gen: in no acute distress on 8L via [place] nasal cannula HEENT: sclera anicteric, moist mucus membranes Neck: supple Lungs: clear to auscultation bilaterally Heart: regular rate and rhythm, no murmurs Abd: soft, non-tender, non-distended Ext: no edema Skin: warm/well-perfused Neuro: alert and oriented x3, no focal findings Psych: appropriate affect Objective Data Active Medications Acetaminophen (Acetaminophen 325 Mg Tablet) 650 mg PO Q6H PRN PRN Reason: Pain, Mild (Pain Scale 1-3) Last Admin: 05/31/21 08:57 Dose: 650 mg Documented by: MADDIE Albuterol Sulfate (Albuterol Sulfate 90 Mcg 8 Gm Inhaler) 4 puff INHALE Q3H PRN PRN Reason: Shortness of Breath Albuterol Sulfate (Albuterol Sulfate 90 Mcg 8 Gm Inhaler) 2 puff INHALE RQID [facility] Last Admin: 06/06/21 11:44 Dose: Not Given Documented by: ALONDRA Non-Admin Reason: pt took mdi Allopurinol (Allopurinol 100 Mg Tablet) 200 mg PO DAILY [facility] Last Admin: 06/06/21 09:42 Dose: 200 mg Documented by: DAYANA Ascorbic Acid (Ascorbic Acid 500 Mg Tablet) 500 mg PO DAILY [facility] Last Admin: 06/06/21 09:42 Dose: 500 mg Documented by: DAYANA Benzonatate (Benzonatate 100 Mg Capsule) 200 mg PO TID [facility] Last Admin: 06/06/21 09:42 Dose: 200 mg Documented by: DAYANA Enoxaparin Sodium (Enoxaparin Sodium 40 Mg/0.4 Ml Syringe) 40 mg SUBCUT Q12H [facility] Last Admin: 06/06/21 09:42 Dose: 40 mg Documented by: DAYANA Famotidine (Famotidine 20 Mg Tablet) 20 mg PO BID [facility] Last Admin: 06/06/21 09:42 Dose: 20 mg Documented by: DAYANA Guaifenesin/Codeine Phosphate (Guaifen/Codeine Sf 200/20/10ml 10 Ml Liquid) 10 ml PO Q6H PRN PRN Reason: Cough Last Admin: 06/06/21 09:42 Dose: 10 ml Documented by: DAYANA Methylprednisolone Sodium Succinate (Methylprednisolone Sod Succ 40 Mg/Ml Vial) 40 mg IVPUSH Q12H [facility] Last Admin: 06/06/21 03:39 Dose: 40 mg Documented by: GINNA Ondansetron HCl (Ondansetron Hcl 4 Mg/2 Ml Vial) 4 mg IVPUSH Q8H PRN PRN Reason: Nausea and Vomiting Pharmacy Consult (Consult Rx Perform Med Rec) 1 each MISCELLANE ONCE PRN PRN Reason: Consult order Sodium Chloride (0.9 % Sodium Chloride Flush 3 Ml Syringe) 3 ml IVFLUSH QSHIFT [facility] Last Admin: 06/06/21 09:42 Dose: 3 ml Documented by: DAYANA Zinc Sulfate (Zinc Sulfate 220 Mg Capsule) 220 mg PO DAILY [facility] Last Admin: 06/06/21 09:42 Dose: 220 mg Documented by: DAYANA Labs CBC & Chem 7: 06/06/21 05:22 06/06/21 05:22 Labs: Laboratory Results - last 24 hr 06/06/21 06/06/21 05:22 05:22 MCV 92.2 MCH 30.3 MCHC 32.8 RDW 11.9 Plt Count 262 D MPV 10.0 Absolute Nucleated RBC 0.000 Nucleated RBC % (auto) 0.0 Anion Gap 12 Estim Creat Clear Calc 162.3 Estimated GFR > 60 Random Glucose 248 H D Calcium 8.6 Assessment and Plan (1) Viral sepsis: Status: Acute (2) COVID-19 virus infection: Status: Acute (3) COVID-19: Status: Acute Assessment and Plan: hospital d#9 55yo unvaccinated M with morbid obesity and goutt with onset of COVID-19 symptoms on 05/21/21 [9 days ago], admitted here 05/24-05/25/21 with mild hypoxia and treated with dexamethasone, presented with worsening cough, dyspnea, and fever, and re-admitted for hypoxia # acute hypoxic respiratory failure with viral sepsis due to COVID-19 infection - improving, s/p dexamethasone x8d, now on IV methlyprednisolone 40mg q12h, continue scheduled/prn albuterol HFA - encourage awake proning, wean O2 as tolerated - no remdesivir per ID # gout - continue allopurinol # morbid obesity - consider bariatric referral when recovered # VTE ppx - continue LMWH Quality Stroke Does the patient have a stroke diagnosis?: No VTE Prior VTE?: No VTE Risk Level:: Medical - moderate - high VTE Device Contraindication: N/A - Device Ordered VTE Drug Contraindication: N/A - Med Ordered
[2021-06-06] MEDS: Albuterol Sulfate 90 MCG 8 GM INHALER 2 PUFF INHALE (19:19)
[2021-06-07] VITALS (8 sets, daily range): BP systolic 133–160; BP diastolic 59–95; PULSE 56–76; RESP 17–20; TEMP 36.1–37.1; O2SAT 87–99
[2021-06-07] MEDS: methylPREDNISolone Sod Succ 40 MG/ML VIAL IVPUSH (02:37)
[2021-06-07 07:07] LABS: Hematocrit 41.6 % (42.0-52.0); Hemoglobin 13.9 g/dl (14.0-18.0); Mean Corpuscular HGB Conc 33.4 g/dl (31.0-36.0); Mean Corpuscular Hemoglobin 30.9 pg (27.0-33.0); Mean Corpuscular Volume 92.4 fL (80.0-98.0); Mean Platelet Volume 9.7 fL (9.4-12.4); Platelet Count 248 X10*3/uL (160-400); Red Cell Distribution Width 11.9 % (11.0-16.0)
[2021-06-07 07:26] LABS: Alanine Aminotransferase 71 U/L (0-40); Albumin Level 3.1 g/dL (3.5-5.0); Alkaline Phosphatase 77 U/L (39-117); Anion Gap 10 (12-20); Aspartate Amino Transferase 16 U/L (5-37); Bilirubin Total 0.6 mg/dL (0.0-1.0); Blood Urea Nitrogen 21 mg/dL (9-16); C Reactive Protein 0.37 mg/dL (< or = 0.50); Calcium 8.9 mg/dL (8.4-10.2); Carbon Dioxide 35 mmol/L (22-29); Chloride 93 mmol/L (96-108); Creatinine Clr Calc Pharmacy 162.3; Estimated Glomerular Filt Rate > 60; Glucose Random 262 mg/dL (60-115); Potassium 4.9 mmol/L (3.3-5.1); Sodium 133 mmol/L (135-145); Total Protein 5.9 g/dL (6.5-8.0)
[2021-06-07 07:38] LABS: D Dimer High Sensitivity 151 NG/ML
[2021-06-07] MEDS: Benzonatate 100 MG CAPSULE 200 MG PO ×3 (09:18→21:59)
[2021-06-07] MEDS: Enoxaparin Sodium 40 MG/0.4 ML SYRINGE SUBCUT ×2 (09:18→21:58)
[2021-06-07] MEDS: 0.9 % Sodium Chloride Flush 3 ML SYRINGE IVFLUSH ×3 (09:19→21:59)
[2021-06-07] MEDS: Zinc Sulfate 220 MG CAPSULE PO (09:19)
[2021-06-07] MEDS: Ascorbic Acid 500 MG TABLET PO (09:19)
[2021-06-07] MEDS: Famotidine 20 MG TABLET PO ×2 (09:19→21:59)
[2021-06-07] MEDS: allopurinoL 100 MG TABLET 200 MG PO (09:19)
--- NOTE | 2021-06-07 10:16 | HO.PM.IMPN ---
Subjective Subjective Date of Service: 06/07/21 Interval History: Coughing, but dyspnea improved. O2 requirement down from 8L to 5L via [place]. Review of Systems Review of Systems: Yes all other systems are reviewed and are negative Physical Exam Vital Signs: Vital Signs: Last Vital Signs Temp 97.9 F 06/07/21 07:33 Pulse 56 06/07/21 07:33 Resp 20 06/07/21 07:33 BP 159/91 H 06/07/21 07:33 Pulse Ox 99 06/07/21 07:33 BMI result Body Mass Index 51.7 Gen: in no acute distress on 5L via [place] HEENT: sclera anicteric, moist mucus membranes Neck: supple Lungs: clear to auscultation bilaterally Heart: regular rate and rhythm, no murmurs Abd: soft, non-tender, non-distended Ext: no edema Skin: warm/well-perfused Neuro: alert and oriented x3, no focal findings Psych: appropriate affect Objective Data Active Medications Acetaminophen (Acetaminophen 325 Mg Tablet) 650 mg PO Q6H PRN PRN Reason: Pain, Mild (Pain Scale 1-3) Last Admin: 05/31/21 08:57 Dose: 650 mg Documented by: MADDIE Albuterol Sulfate (Albuterol Sulfate 90 Mcg 8 Gm Inhaler) 4 puff INHALE Q3H PRN PRN Reason: Shortness of Breath Albuterol Sulfate (Albuterol Sulfate 90 Mcg 8 Gm Inhaler) 2 puff INHALE RQID [facility] Last Admin: 06/07/21 07:49 Dose: Not Given Documented by: ALONDRA Non-Admin Reason: Patient Asleep Allopurinol (Allopurinol 100 Mg Tablet) 200 mg PO DAILY [facility] Last Admin: 06/07/21 09:19 Dose: 200 mg Documented by: TYREL Ascorbic Acid (Ascorbic Acid 500 Mg Tablet) 500 mg PO DAILY [facility] Last Admin: 06/07/21 09:19 Dose: 500 mg Documented by: TYRLE Benzonatate (Benzonatate 100 Mg Capsule) 200 mg PO TID [facility] Last Admin: 06/07/21 09:18 Dose: 200 mg Documented by: TYREL Enoxaparin Sodium (Enoxaparin Sodium 40 Mg/0.4 Ml Syringe) 40 mg SUBCUT Q12H [facility] Last Admin: 06/07/21 09:18 Dose: 40 mg Documented by: TYREL Famotidine (Famotidine 20 Mg Tablet) 20 mg PO BID [facility] Last Admin: 06/07/21 09:19 Dose: 20 mg Documented by: TYREL Methylprednisolone Sodium Succinate (Methylprednisolone Sod Succ 40 Mg/Ml Vial) 40 mg IVPUSH Q12H [facility] Last Admin: 06/07/21 02:37 Dose: 40 mg Documented by: NAZANIN Ondansetron HCl (Ondansetron Hcl 4 Mg/2 Ml Vial) 4 mg IVPUSH Q8H PRN PRN Reason: Nausea and Vomiting Pharmacy Consult (Consult Rx Perform Med Rec) 1 each MISCELLANE ONCE PRN PRN Reason: Consult order Sodium Chloride (0.9 % Sodium Chloride Flush 3 Ml Syringe) 3 ml IVFLUSH QSHIFT [facility] Last Admin: 06/07/21 09:19 Dose: 3 ml Documented by: TYREL Zinc Sulfate (Zinc Sulfate 220 Mg Capsule) 220 mg PO DAILY [facility] Last Admin: 06/07/21 09:19 Dose: 220 mg Documented by: TYREL Labs CBC & Chem 7: 06/07/21 06:48 06/07/21 06:48 Labs: Laboratory Results - last 24 hr 06/07/21 06/07/21 06/07/21 06:48 06:48 06:48 MCV 92.4 MCH 30.9 MCHC 33.4 RDW 11.9 Plt Count 248 MPV 9.7 Absolute Nucleated RBC 0.000 Nucleated RBC % (auto) 0.0 D-Dimer High Sensitivty 151 Anion Gap 10 L Estim Creat Clear Calc 162.3 Estimated GFR > 60 Random Glucose 262 H Calcium 8.9 Total Bilirubin 0.6 AST 16 D ALT 71 H Alkaline Phosphatase 77 C-Reactive Protein 0.37 Total Protein 5.9 L Albumin 3.1 L Assessment and Plan (1) Viral sepsis: Status: Acute (2) COVID-19 virus infection: Status: Acute (3) COVID-19: Status: Acute Assessment and Plan: hospital d#10 55yo unvaccinated M with morbid obesity and gout, onset of COVID-19 symptoms on 05/21/21 [9 days ago], admitted here 05/24-05/25/21 with mild hypoxia and treated with dexamethasone, presented with worsening cough, dyspnea, and fever, and re-admitted for hypoxia # acute hypoxic respiratory failure with viral sepsis due to COVID-19 infection - improving, s/p dexamethasone x8d, now on IV methlyprednisolone 40mg q12h -> change to prednisone taper, continue scheduled/prn albuterol HFA - encourage awake proning, wean O2 as tolerated - no remdesivir per ID # gout - continue allopurinol # morbid obesity - consider bariatric referral when recovered # VTE ppx - continue LMWH Quality Stroke Does the patient have a stroke diagnosis?: No VTE Prior VTE?: No VTE Risk Level:: Medical - moderate - high VTE Device Contraindication: N/A - Device Ordered VTE Drug Contraindication: N/A - Med Ordered
[2021-06-07] MEDS: Albuterol Sulfate 90 MCG 8 GM INHALER 2 PUFF INHALE (20:18)
[2021-06-08] VITALS (8 sets, daily range): BP systolic 129–145; BP diastolic 74–91; PULSE 66–82; RESP 18–20; TEMP 36.2–37.1; O2SAT 6–94
[2021-06-08] MEDS: Albuterol Sulfate 90 MCG 8 GM INHALER 2 PUFF INHALE ×2 (08:36→20:14)
[2021-06-08] MEDS: predniSONE 20 MG TABLET 40 MG PO (09:38)
[2021-06-08] MEDS: allopurinoL 100 MG TABLET 200 MG PO (09:38)
[2021-06-08] MEDS: 0.9 % Sodium Chloride Flush 3 ML SYRINGE IVFLUSH ×3 (09:38→20:08)
[2021-06-08] MEDS: Enoxaparin Sodium 40 MG/0.4 ML SYRINGE SUBCUT ×2 (09:38→20:08)
[2021-06-08] MEDS: Ascorbic Acid 500 MG TABLET PO (09:38)
[2021-06-08] MEDS: Famotidine 20 MG TABLET PO ×2 (09:39→20:08)
[2021-06-08] MEDS: Zinc Sulfate 220 MG CAPSULE PO (09:39)
[2021-06-08] MEDS: Benzonatate 100 MG CAPSULE 200 MG PO ×3 (09:39→20:07)
--- NOTE | 2021-06-08 12:44 | HO.PM.IMPN ---
Subjective Subjective Date of Service: 06/08/21 Interval History: Coughing. Dyspnea improved. No chest pain. No fever. Review of Systems Review of Systems: Yes all other systems are reviewed and are negative Physical Exam Vital Signs: Vital Signs: Last Vital Signs Temp 98.2 F 06/08/21 11:18 Pulse 66 06/08/21 11:18 Resp 18 06/08/21 11:18 BP 143/75 H 06/08/21 11:18 Pulse Ox 93 06/08/21 11:18 BMI result Body Mass Index 51.7 Gen: in no acute distress on 5L via [place] HEENT: sclera anicteric, moist mucus membranes Neck: supple Lungs: clear to auscultation bilaterally Heart: regular rate and rhythm, no murmurs Abd: soft, non-tender, non-distended Ext: no edema Skin: warm/well-perfused Neuro: alert and oriented x3, no focal findings Psych: appropriate affect Objective Data Active Medications Acetaminophen (Acetaminophen 325 Mg Tablet) 650 mg PO Q6H PRN PRN Reason: Pain, Mild (Pain Scale 1-3) Last Admin: 05/31/21 08:57 Dose: 650 mg Documented by: MADDIE Albuterol Sulfate (Albuterol Sulfate 90 Mcg 8 Gm Inhaler) 4 puff INHALE Q3H PRN PRN Reason: Shortness of Breath Albuterol Sulfate (Albuterol Sulfate 90 Mcg 8 Gm Inhaler) 2 puff INHALE RQID [facility] Last Admin: 06/08/21 11:57 Dose: Not Given Documented by: CHRISTINE Non-Admin Reason: Patient Asleep Allopurinol (Allopurinol 100 Mg Tablet) 200 mg PO DAILY [facility] Last Admin: 06/08/21 09:38 Dose: 200 mg Documented by: JAVIER Ascorbic Acid (Ascorbic Acid 500 Mg Tablet) 500 mg PO DAILY [facility] Last Admin: 06/08/21 09:38 Dose: 500 mg Documented by: JAVIER Benzonatate (Benzonatate 100 Mg Capsule) 200 mg PO TID [facility] Last Admin: 06/08/21 09:39 Dose: 200 mg Documented by: JAVIER Enoxaparin Sodium (Enoxaparin Sodium 40 Mg/0.4 Ml Syringe) 40 mg SUBCUT Q12H [facility] Last Admin: 06/08/21 09:38 Dose: 40 mg Documented by: JAVIER Famotidine (Famotidine 20 Mg Tablet) 20 mg PO BID [facility] Last Admin: 06/08/21 09:39 Dose: 20 mg Documented by: JAVIER Ondansetron HCl (Ondansetron Hcl 4 Mg/2 Ml Vial) 4 mg IVPUSH Q8H PRN PRN Reason: Nausea and Vomiting Pharmacy Consult (Consult Rx Perform Med Rec) 1 each MISCELLANE ONCE PRN PRN Reason: Consult order Prednisone (Prednisone 20 Mg Tablet) 40 mg PO DAILY [facility] Last Admin: 06/08/21 09:38 Dose: 40 mg Documented by: JAVIER Sodium Chloride (0.9 % Sodium Chloride Flush 3 Ml Syringe) 3 ml IVFLUSH QSHIFT [facility] Last Admin: 06/08/21 09:38 Dose: 3 ml Documented by: JAVIER Zinc Sulfate (Zinc Sulfate 220 Mg Capsule) 220 mg PO DAILY [facility] Last Admin: 06/08/21 09:39 Dose: 220 mg Documented by: JAVIER Labs CBC & Chem 7: 06/07/21 06:48 06/07/21 06:48 Assessment and Plan (1) Viral sepsis: Status: Acute (2) COVID-19 virus infection: Status: Acute (3) COVID-19: Status: Acute Assessment and Plan: hospital d#11 55yo unvaccinated M with morbid obesity and gout, onset of COVID-19 symptoms on 05/21/21, admitted here 05/24-05/25/21 with mild hypoxia and treated with dexamethasone, presented with worsening cough, dyspnea, and fever, and re-admitted for hypoxia # acute hypoxic respiratory failure with viral sepsis due to COVID-19 infection - improving, s/p dexamethasone x8d, now on IV methlyprednisolone 40mg q12h -> changed to prednisone taper 06/07, continue scheduled/prn albuterol HFA - encourage awake proning, wean O2 as tolerated - no remdesivir per ID # gout - continue allopurinol # morbid obesity - consider bariatric referral when recovered # VTE ppx - continue LMWH Quality Stroke Does the patient have a stroke diagnosis?: No VTE Prior VTE?: No VTE Risk Level:: Medical - moderate - high VTE Device Contraindication: N/A - Device Ordered VTE Drug Contraindication: N/A - Med Ordered
--- NOTE | 2021-06-08 14:03 | MHC.CM.PN ---
Male 55 Covid +. His demand for supplemental oxygen has decreased. He has been weaned to 4L. DP home with family support and transportation.
[2021-06-09 03:56] VITALS: BP 152/88; PULSE 68; RESP 18; TEMP 36.2; O2SAT 90
[2021-06-09 07:43] VITALS: BP 129/75; PULSE 75; RESP 20; TEMP 36; O2SAT 89
[2021-06-09] MEDS: Enoxaparin Sodium 40 MG/0.4 ML SYRINGE SUBCUT (08:18)
[2021-06-09] MEDS: Famotidine 20 MG TABLET PO (08:19)
[2021-06-09] MEDS: predniSONE 20 MG TABLET 40 MG PO (08:19)
[2021-06-09] MEDS: Benzonatate 100 MG CAPSULE 200 MG PO ×2 (08:19→15:42)
[2021-06-09] MEDS: allopurinoL 100 MG TABLET 200 MG PO (08:19)
[2021-06-09] MEDS: Ascorbic Acid 500 MG TABLET PO (08:19)
[2021-06-09] MEDS: Zinc Sulfate 220 MG CAPSULE PO (08:19)
[2021-06-09] MEDS: 0.9 % Sodium Chloride Flush 3 ML SYRINGE IVFLUSH ×2 (08:19→15:42)
[2021-06-09 11:50] VITALS: BP 139/83; PULSE 89; RESP 20; TEMP 36.6; O2SAT 87
[2021-06-09 12:49] VITALS: PULSE 101; PULSE 89; PULSE 93; O2SAT 86; O2SAT 89; O2SAT 90
--- NOTE | 2021-06-09 13:09 | P.F2F_ITS ---
Service Date Service Date: 06/09/21 Encounter Date of encounter: 06/09/21 Reasons for Services Reason for nursing home: medication management, teach disease management and other (oxygen requirement) Reason for physical therapy: home safety and mobility, therapeutic exercises, restore joint function, gait/transfer training, ADL training and energy conservation Homebound: Leaving the home is medically contraindicated at this time without the asist of a device and/or another person due th the listed conditions above and below. Reason homebound: shortness of breath with minimal effort, immunosuppression / infection risk and weakness related to hospital stay Homebound supporting statement: New oxygen requirement: 3L at rest, 4L with ambulation. Due to COVID-19 pneumonia. Certification: Based on the above findings, I certify that this patient is confined to the home and needs intermittent nursing home care, physical therapy and/or speech therapy, or continues to need occupational therapy. The patient is under my care, and I have initiated the establishment of the plan of care. The patient will be followed by a physician who will periodically review the plan of care.
--- NOTE | 2021-06-09 13:17 | P.DS_ITS ---
DS: Providers Provider Date of Service: 06/09/21 Date of admission: 05/29/21 12:00 Primary care physician: FLORENCIO Finley Consults: 05/29/21 11:16 Consult to Infectious Diseases Routine Consulting Provider: Katherine Styles Reason for consultation: COVID-19 pna DS: Diagnosis Discharge Diagnosis (1) Viral sepsis: Status: Acute (2) Acute respiratory failure with hypoxia: Status: Acute (3) Pneumonia due to COVID-19 virus: Status: Acute (4) Morbid obesity: Status: Acute DS: Summary Hospital Course Hospital Course: from my admission H+P on 05/29/21: 55yo morbidly obese M with gout, not vaccinated against COVID-19, who had onset of cough, sore throat, dyspnea, and myalgias on 05/21/21 and tested positive for COVID-19 on 05/23/21.? He was admitted to [facility] 05/24-05/25/21 for hypoxia related to COVID-19 infection and was treated with, and discharged on, dexamethasone.? He presents today again with worsening cough, dyspnea, and fever.? Here he is found to be febrile to 102.5 and tachypneic to 22.? Room air SaO2 is 86%.? Endorses anosmia.? Denies chest pain, nausea, vomiting, or abdominal pain.? Lives with roommates, none of whom are ill. The [place] [facility] [place] and treated with dexamethasone, which was switched to methylprednisolone, then prednisone taper. He was given oxygen support via Venti mask, then Peres nasal cannula, requiring up to 12L of O2. He was gradually weaned down to 3L at rest and 4L with ambulation. Inflammatory markers improved as well. He was discharged with home oxygen and 10-day prednisone taper. He should follow up with his primary care doctor within 1-2 weeks. Time Spent with Patient Time attestation: Total time spent providing and/or coordinating discharge services: Discharge coordination time: Greater than 30 minutes Quality: Stroke Does the patient have a stroke diagnosis?: No Physical Exam Vital Signs: Vital Signs: Last Vital Signs (on room air) Temp 97.8 F 06/09/21 11:50 Pulse 89 06/09/21 11:50 Resp 20 06/09/21 11:50 BP 139/83 06/09/21 11:50 Pulse Ox 87 L 06/09/21 11:50 BMI result Body Mass Index 51.7 Gen: in no acute distress HEENT: sclera anicteric, moist mucus membranes Neck: supple Lungs: clear to auscultation bilaterally Heart: regular rate and rhythm, no murmurs Abd: soft, non-tender, non-distended, obese Ext: no edema Skin: warm/well-perfused Neuro: alert and oriented x3, no focal findings Psych: appropriate affect DS: Data Data Completed and Pending Completed studies during hospitalization [Text1]: Laboratory Results WBC 11.0 X10*3/uL (4.8-10.8) H 06/07/21 06:48 RBC 4.50 X10*6/uL (4.60-5.80) L 06/07/21 06:48 Hgb 13.9 g/dl (14.0-18.0) L 06/07/21 06:48 Hct 41.6 % (42.0-52.0) L 06/07/21 06:48 MCV 92.4 fL (80.0-98.0) 06/07/21 06:48 MCH 30.9 pg (27.0-33.0) 06/07/21 06:48 MCHC 33.4 g/dl (31.0-36.0) 06/07/21 06:48 RDW 11.9 % (11.0-16.0) 06/07/21 06:48 Plt Count 248 X10*3/uL (160-400) 06/07/21 06:48 MPV 9.7 fL (9.4-12.4) 06/07/21 06:48 Immature Gran % (Auto) 0.8 % (0.0-0.4) H 05/29/21 08:04 Neut % (Auto) 64.8 % (45-73) 05/29/21 08:04 Lymph % (Auto) 22.4 % (20-40) 05/29/21 08:04 [place] % (Auto) 11.6 % (2-11) H 05/29/21 08:04 Eos % (Auto) 0.1 % (0-4) 05/29/21 08:04 Baso % (Auto) 0.3 % (0-2) 05/29/21 08:04 Lymph # (Auto) 1.7 X10*3/uL (1.2-4.9) 05/29/21 08:04 [place] # (Auto) 0.9 X10*3/uL (0.1-1.2) 05/29/21 08:04 Eos # (Auto) 0.0 X10*3/uL (0.0-0.4) 05/29/21 08:04 Baso # (Auto) 0.0 X10*3/uL (0.0-0.2) 05/29/21 08:04 Abs Immat Gran (auto) 0.06 X10*3/uL (0.00-0.03) H 05/29/21 08:04 Absolute Neuts (auto) 5.1 x10*3/uL (2.0-8.3) 05/29/21 08:04 Absolute Nucleated RBC 0.000 X10*3/uL (0.0-0.012) 06/07/21 06:48 Nucleated RBC % (auto) 0.0 /100WBC (0.0-0.2) 06/07/21 06:48 PT 13.4 SEC (9.9-13.0) H 05/29/21 08:04 INR 1.2 (0.9-1.1) H 05/29/21 08:04 D-Dimer High Sensitivty 151 NG/ML 06/07/21 06:48 Sodium 133 mmol/L (135-145) L 06/07/21 06:48 Potassium 4.9 mmol/L (3.3-5.1) 06/07/21 06:48 Chloride 93 mmol/L (96-108) L 06/07/21 06:48 Carbon Dioxide 35 mmol/L (22-29) H 06/07/21 06:48 Anion Gap 10 (12-20) L 06/07/21 06:48 BUN 21 mg/dL (9-16) H 06/07/21 06:48 Creatinine 0.77 mg/dL (0.5-1.4) 06/07/21 06:48 Estim Creat Clear Calc 162.3 06/07/21 06:48 Estimated GFR > 60 06/07/21 06:48 Random Glucose 262 mg/dL (60-115) H 06/07/21 06:48 Estimat Average Glucose 126 mg/dL 05/29/21 08:04 Hemoglobin A1c % 6.0 % 05/29/21 08:04 Calcium 8.9 mg/dL (8.4-10.2) 06/07/21 06:48 Ferritin 242 ng/mL (20-250) 05/29/21 08:04 Total Bilirubin 0.6 mg/dL (0.0-1.0) 06/07/21 06:48 AST 16 U/L (5-37) D 06/07/21 06:48 ALT 71 U/L (0-40) H 06/07/21 06:48 Alkaline Phosphatase 77 U/L (39-117) 06/07/21 06:48 Lactate Dehydrogenase 248 U/L (118-273) 05/29/21 08:04 C-Reactive Protein 0.37 mg/dL (< or = 0.50) 06/07/21 06:48 Total Protein 5.9 g/dL (6.5-8.0) L 06/07/21 06:48 Albumin 3.1 g/dL (3.5-5.0) L 06/07/21 06:48 Procalcitonin 0.12 ng/mL 05/29/21 08:04 COVID-19 (PAULIE) Positive (Negative) A 05/29/21 12:00 COVID-19 Clin Com See Note 05/29/21 12:00 Impressions Chest X-Ray 05/29/21 07:53 IMPRESSION: No acute cardiopulmonary process seen. No change from 05/24/2021. Discharge Plan Discharge Patient Disposition: Home Health Service Discharge Diagnosis: COVID-19 pneumonia, hypoxia, morbid obesity Referrals: Shyam Lindsey PA [Primary Care Provider] - 1 Week Discharge Medications: New prednisone 10 mg tablet See Rx Instructions .ROUTE .COMPLEX Qty: 21 RF: 0 Continued allopurinol 100 mg tablet 2 tab PO DAILY RF: 0 Discontinued famotidine 20 mg Tablet 20 mg PO BID Qty: 30 RF: 0 ascorbic acid (vitamin C) [Vitamin C] 500 mg Tablet 500 mg PO DAILY Qty: 30 RF: 0 zinc sulfate [Zinc-220] 50 mg zinc (220 mg) Capsule 220 mg PO DAILY Qty: 30 RF: 0 dexamethasone 6 mg tablet 6 mg PO DAILY Qty: 9 RF: 0 Discharge Orders: Discharge Order (Routine); Ordered 06/09/21 Ordered By: Darcy Montoya Diet: advance to usual diet and low salt diet Activity on Discharge: As tolerated Stand Alone Forms: Patient Portal Discharge page Care Plan Goals: recovery from COVID-19 Health Concerns: COVID-19 pneumonia, hypoxia, morbid obesity Plan of Treatment: prednisone taper: 40 mg daily x2 days, then 30 mg daily x2 days, then 20 mg daily x2 days, then 10 mg daily x2 days, then 5 mg daily x2 days, then stop use oxygen 3L at rest, 4L with activity; wean as tolerated consider weight loss in future see your primary care doctor in 1-2 weeks Assessment: see Discharge Summary Patient Instructions: Using Oxygen at Home (DC), COVID-19 (Coronavirus Disease 2019) (DC)
--- NOTE | 2021-06-09 13:42 | MHC.CM.PN ---
Male 55 DX Covid+ is discharged today. He will go home with Supplemental oxygen. 3L@ rest and 4L w activity. Alessio will be the provider. Met with the patient re DC planning. Homecare services have been ordered by . Pt preference obtained, referral for [facility] was made. He will transport via BLS.
[2021-06-09 15:30] VITALS: BP 150/70; PULSE 82; RESP 16; TEMP 37; O2SAT 88
== END 2021-06-09 19:16 | disposition home health service (06) | DRG 871 ==
LOC: HO.ED 10:59 → HO.EDOVER 12:01 → HO.IMC 17:26
PROVIDERS: Hospitalist; Admitting Provider Family Medicine; Emergency Provider Emergency Medicine; PCP Physician Assistant Medical; Visit Provider Family Medicine
DX: A41.89 Other specified sepsis (principal); U07.1 COVID-19; J12.82 Pneumonia due to coronavirus disease 2019; J96.01 Acute respiratory failure with hypoxia; Z68.43 Body mass index [BMI] 50.0-59.9, adult; E66.01 Morbid (severe) obesity due to excess calories; E78.5 Hyperlipidemia, unspecified; M10.9 Gout, unspecified; Z79.899 Other long term (current) drug therapy
CPT/HCPCS: 36415; 71045; 80048; 80053; 82728; 83036; 83615; 84145; 85025; 85027; 85379; 85610; 86140; 87635; 94640; 99285; J1100; J1650; J2920; J2930

== ENCOUNTER 2022-03-26 15:17 | Emergency (ER) | payer MEDICAID, SELFPAY ==
[2022-03-26 16:13] VITALS: BP 146/62; PULSE 77; RESP 16; TEMP 36.2; O2SAT 96; BMI 48.7
--- NOTE | 2022-03-26 17:46 | ED_ITS ---
HPI - Extremity Problem General Chief complaint: Extremity Problem Stated complaint: gout Time Seen by Provider: 03/26/22 17:40 History of Present Illness HPI Narrative: Patient complains of right foot and ankle pains similar in location and character to many prior gout flares, no recent injury no fever Related Data Home Medications Medication Instructions Recorded Confirmed allopurinol 100 mg tablet 2 tab PO DAILY 05/24/21 05/29/21 Previous Rx's Medication Instructions Recorded prednisone 10 mg tablet See Rx Instructions .Route 06/09/21 .COMPLEX #21 tabs acetaminophen 500 mg tablet 1,000 mg PO QID PRN pain #30 tabs 03/26/22 cephalexin 500 mg tablet 500 mg PO QID 7 days #28 tabs 03/26/22 naproxen 500 mg tablet (Naprosyn) 500 mg PO BID PRN pain #14 tabs 03/26/22 oxycodone 5 mg tablet 5 mg PO Q6H PRN pain #14 tabs 03/26/22 prednisone 20 mg tablet 60 mg PO DAILY 3 days #9 tabs 03/26/22 Allergies Allergy/AdvReac Type Severity Reaction Status Date / Time No Known Allergies Allergy Verified 05/24/21 16:03 Review of Systems Review of Systems: Positive for right ankle and foot pain Negatives no fever no chills no dizziness weakness no fainting no feeling faint no headache no neck pain no chest pain no back pain no radiating pain no weak ness no loss of sensation Yes all other systems are reviewed and are negative [facility] Past Medical History Source: nursing notes reviewed Medical History Arthritis Gout Hyperlipidemia Surgical History H/O hernia repair Family History Family History Other No significant family history Social History Social History Household Members: Other Housing: Condominium Do you presently have visiting nurse or other home services: No Patient Tobacco Use Status: Never used Tobacco Advance Directives: Yes Advance Directives on File: Yes Advance Directives Date on File: 06/10/21 service: Yes Current occupational status: employed Physical Exam Vital Signs: Vital Signs: Last Vital Signs Temp 97.1 F 03/26/22 16:13 Pulse 77 03/26/22 16:13 Resp 16 03/26/22 16:13 BP 146/62 H 03/26/22 16:13 Pulse Ox 96 03/26/22 16:13 O2 Del Method 03/26/22 16:13 BMI result Body Mass Index 48.7 General appearance uncomfortable no distress Head is normocephalic atraumatic Neck is supple Respiratory no distress Abdomen soft nontender Extremities full range of motion x4 The right dorsal foot has some redness and the ankle is red the ankle does have full range of motion as do the toes there is tenderness over the dorsal MTP as well as over the right ankle Other extremities normal Gait is a limp he can bear weight but very uncomfortable cause of pain in the foot Course Course Course Narrative: Patient with history of gout with pain and a characteristic location and similar character is treated for gout with prednisone As the skin was red and there is still a chance of infection I am treating for possible cellulitis with Keflex Patient is discharged to follow with his doctor or return if worse Patient refused the x-ray so no x-ray was done Discharge Plan Discharge Clinical Impression: Gout, Cellulitis Patient Disposition: Home, Self-Care Additional Instructions: Because this is just like prior gout flares we are treating for gout but because the skin is red there is a chance of skin infection so were using Keflex antibiotic as well Follow with primary doctor Return any time for spreading redness, worse pain and swelling, pain out of control, fever, any worse condition or any concerns any sign of worsening infection Prescriptions: New acetaminophen 500 mg tablet 1,000 mg PO QID PRN (Reason: pain) Qty: 30 0RF cephalexin 500 mg tablet 500 mg PO QID 7 Days Qty: 28 0RF oxycodone 5 mg tablet 5 mg PO Q6H PRN (Reason: pain) Qty: 14 0RF Rx Instructions: Partial Fill upon patient request. prednisone 20 mg tablet 60 mg PO DAILY 3 Days Qty: 9 0RF naproxen [Naprosyn] 500 mg tablet 500 mg PO BID PRN (Reason: pain) Qty: 14 0RF No Action allopurinol 100 mg tablet 2 tab PO DAILY Rx Instructions: take one tab for 7 days then increase to tabs prednisone 10 mg tablet See Rx Instructions .ROUTE .COMPLEX Qty: 21 0RF Rx Instructions: 4tab (40mg) daily x2d, 3tab (30mg) daily x 2d, 2tab (20mg) daily x2d, 1tab (10 mg) daily x2d, then half tab (5mg) daily x2d Interventions: ED Discharge Assessment Last Done: 03/26/22 18:08 Discharge Date/Time: 03/26/22 18:09
[2022-03-26] MEDS: predniSONE 20 MG TABLET 60 MG PO (18:02)
[2022-03-26] MEDS: oxyCODONE HCl Immed Release 5 MG TABLET 10 MG PO (18:02)
[2022-03-26] MEDS: Ketorolac Tromethamine 30 MG/ML VIAL IM (18:03)
[2022-03-26] MEDS: cephALEXin 500 MG CAPSULE PO (18:03)
== END 2022-03-26 18:09 | disposition home or self-care (01) ==
PROVIDERS: Emergency Provider Emergency Medicine Emergency Medical Services
DX: M10.9 Gout, unspecified (principal); L03.115 Cellulitis of right lower limb; Z79.899 Other long term (current) drug therapy
CPT/HCPCS: 96372; 99283; 99284; J1885

== ENCOUNTER 2022-05-23 09:30 | Outpatient (REF) | payer MEDICAID, SELFPAY ==
[2022-05-23 10:05] LABS: COVID-19 Test Positive (Negative); IDNOW Serial# 08D9AD1C
== END 2022-05-23 09:31 | disposition home or self-care (01) ==
LOC: HO.LAB 09:30
PROVIDERS: Visit Provider Internal Medicine
DX: Z20.822 Contact with and (suspected) exposure to COVID-19 (principal)
CPT/HCPCS: 87635; C9803

== ENCOUNTER 2022-06-14 18:28 | Emergency (ER) | payer MEDICAID, SELFPAY ==
--- NOTE | ~2022-06-14 | US_ITS ---
EXAMINATION: US VENOUS ULTRASOUND WITH DOPPLER LOWER EXTREMITY, RIGHT CLINICAL INFORMATION: Pain COMPARISON: None TECHNIQUE: Ultrasound of the deep veins is performed from the hip to the calf with compression sonography and color and pulse Doppler assessment. Spectral analysis with color-flow imaging is performed. FINDINGS: Exam limited due to patient's body habitus. There is normal venous compression and respiratory variation and augmented flow. The visualized common femoral vein, superficial femoral vein, profunda femoral vein, popliteal vein, and the trifurcation region shows no evidence of deep venous thrombosis. There is no significant popliteal fossa cyst. Incidental finding was made of varicose veins along the medial mid and distal thigh noncompressible. If the patient's symptoms persist, followup ultrasound in 5 days 7 days might be of value to exclude proximal propagation from a non-visualized calf vein. US/US venous duplex LE RT IMPRESSION: No DVT demonstrated in the right lower extremity. Noncompressible Varicose veins along the mid and distal thigh.
[2022-06-14 18:31] VITALS: BP 135/82; PULSE 73; RESP 18; TEMP 36.6; O2SAT 97; BMI 50.1
--- NOTE | 2022-06-14 18:39 | ED_ITS ---
HPI - Extremity Problem General Chief complaint: Extremity Problem <Vaibhav Leach MD - Last Filed: 06/14/22 18:46> Stated complaint: knee pain and R foot <Vaibhav Leach MD - Last Filed: 06/14/22 18:46> Time Seen by Provider: 06/14/22 18:50 <Vaibhav Leach MD - Last Filed: 06/14/22 18:46> Source: patient <Lola Dobbs CNP - Last Filed: 06/14/22 23:41> Mode of arrival: ambulatory <Lola Dobbs CNP - Last Filed: 06/14/22 23:41> Limitations: no limitations <Lola Dobbs CNP - Last Filed: 06/14/22 23:41> History of Present Illness HPI Narrative: Patient is a 56-year-old male with a past medical history of arthritis, gout, hyperlipidemia presents to the emergency department for evaluation of right lower extremity pain. He reports a history of arthritis and gout, his right leg has been bothering him for the past 2 weeks. However, today he experienced sudden worsening of right knee pain which he did feel was consistent with gout. Pain is felt diffusely throughout the knee, and posterior to the knee, feels pain in the calf as well as his ankle. Also reporting lower extremity swelling. Denies personal history of DVT/PE, coagulation disorder, history of malignancy, recent surgery or prolonged immobilization. Denies fever, chills, chest pain, shortness of breath, difficulty breathing, back pain. Denies any fall or precipitating injury. <Lola Dobbs CNP - Last F iled: 06/14/22 23:41> Related Data Home medications: Home Medications Medication Instructions Recorded Confirmed allopurinol 100 mg tablet 2 tab PO DAILY 05/24/21 05/29/21 Previous Rx's Medication Instructions Recorded prednisone 10 mg tablet See Rx Instructions .Route 06/09/21 .COMPLEX #21 tabs acetaminophen 500 mg tablet 1,000 mg PO QID PRN pain #30 tabs 03/26/22 cephalexin 500 mg tablet 500 mg PO QID 7 days #28 tabs 03/26/22 naproxen 500 mg tablet (Naprosyn) 500 mg PO BID PRN pain #14 tabs 03/26/22 oxycodone 5 mg tablet 5 mg PO Q6H PRN pain #14 tabs 03/26/22 prednisone 20 mg tablet 60 mg PO DAILY 3 days #9 tabs 03/26/22 oxycodone 5 mg tablet 5 mg PO Q6H PRN pain #10 tabs 06/14/22 prednisone 20 mg tablet 40 mg PO DAILY #10 tabs 06/14/22 <Vaibhav Leach MD - Last Filed: 06/14/22 18:46> Allergies/Adverse reactions: Allergies Allergy/AdvReac Type Severity Reaction Status Date / Time No Known Allergies Allergy Verified 05/24/21 16:03 <Vaibhav Leach MD - Last Filed: 06/14/22 18:46> Review of Systems Review of Systems: Constitutional: No weight loss, fever, chills, weakness or fatigue. Skin: No rash or itching. Cardiovascular: No chest pain, chest pressure or chest discomfort. No palpitations or pedal edema. Respiratory: No shortness of breath, cough or sputum production. Gastrointestinal: No anorexia, nausea, vomiting or diarrhea. No abdominal pain or blood in stool. Genitourinary: No burning micturition. No urinary frequency or incontinence. Musculoskeletal: Positive right lower extremity pain as noted in HPI Psychiatric: No depression or anxiety. <Lola Dobbs CNP - Last Filed: 06/14/22 23:41> Yes all other systems are reviewed and are negative <Lola Dobbs CNP - Last Filed: 06/14/22 23:41> PMF Past Medical History Attestation statement: The following information was validated with the patient. <Lola Dobbs CNP - Last Filed: 06/14/22 23:41> Source: old records reviewed <Lola Dobbs CNP - Last Filed: 06/14/22 23:41> Medical History: Medical History Arthritis Gout Hyperlipidemia <Vaibhav Leach MD - Last Filed: 06/14/22 18:46> Surgical History: Surgical History H/O hernia repair <Vaibhav Leach MD - Last Filed: 06/14/22 18:46> Family History Family History: Family History Other No significant family history <Vaibhav Leach MD - Last Filed: 06/14/22 18:46> Social History Social History: Social History Household Members: Other Housing: Condominium Do you presently have visiting nurse or other home services: No Patient Tobacco Use Status: Never used Tobacco Advance Directives: Yes Advance Directives on File: Yes Advance Directives Date on File: 06/10/21 service: Yes Current occupational status: employed <Vaibhav Leach MD - Last Filed: 06/14/22 18:46> Physical Exam Vital Signs: Vital Signs: Last Vital Signs Temp 97.9 F 06/14/22 18:31 Pulse 63 06/14/22 21:05 Resp 16 06/14/22 21:05 BP 140/78 H 06/14/22 21:05 Pulse Ox 95 06/14/22 21:05 O2 Del Method 06/14/22 21:05 BMI result Body Mass Index 50.1 <Vaibhav Leach MD - Last Filed: 06/14/22 18:46> Vital Signs: Last Vital Signs Temp 97.9 F 06/14/22 18:31 Pulse 63 06/14/22 21:05 Resp 16 06/14/22 21:05 BP 140/78 H 06/14/22 21:05 Pulse Ox 95 06/14/22 21:05 O2 Del Method 06/14/22 21:05 BMI result Body Mass Index 50.1 <Lola Dobbs CNP - Last Filed: 06/14/22 23:41> Appearance: Alert.?Oriented to person, place and time. No acute distress.?Normal affect. Eyes: Pupils equal, round and reactive to light.? ENT: Pharynx normal.?? Neck: Normal inspection.? Neck supple.?? CVS: Heart sounds normal. Normal heart rate and rhythm.? Pulses normal.?? Respiratory: No respiratory distress.? Lung sounds clear to auscultation bilaterally?? Abdomen: Soft and non-tender. Normoactive bowel sounds. ? Skin: Skin warm and dry.? Normal skin color.? ? Extremities: Positive right lower extremity edema, tenderness upon palpation of the right calf, tenderness to right popliteal fossa. No obvious deformity or effusion. Right knee is warm to touch, no erythema. 2+ DP/PT pulse bilaterally Neuro: Moves all extremities spontaneously. Sensation intact bilaterally. No focal neuro deficits. Ambulates with normal steady gait. <Lola Dobbs CNP - Last Filed: 06/14/22 23:41> Course Course Course Narrative: RME: 56-year-old male with a history of arthritis and gout presents exacerbation of his arthritis pain x2 weeks with sudden onset of pain in his right knee today consistent with his gout type pain. Also complaining of swelling behind his right knee, calf and ankle pain. Exam reveals some slight increased warmth over the right knee but no obvious joint effusion, patient does have tenderness palpation of the popliteal fossa. Patient does have lower extremity swelling. I ordered laboratory evaluation CBC, CMP, D-dimer, PT/INR, PTT, venous duplex ultrasound left lower extremity to rule out DVT. Patient's p ain was treated with Tylenol 975 mg orally in triage and I also ordered oxycodone 10 mg orally to be given when he has a room in the emergency department. <Vaibhav Leach MD - Last Filed: 06/14/22 18:46> Medications Administered Discontinued Medications Generic Name Dose Route Start Last Admin Trade Name Freq PRN Reason Stop Dose Admin Acetaminophen 975 mg 06/14/22 18:38 06/14/22 18:41 Acetaminophen 325 Mg Tablet PO 06/14/22 18:39 975 mg ONCE ONE Administration Oxycodone HCl 10 mg 06/14/22 18:39 06/14/22 18:47 Oxycodone Hcl Immed Release 5 Mg Tablet PO 06/14/22 18:40 10 mg ONCE ONE Administration <Vaibhav Leach MD - Last Filed: 06/14/22 18:46> Medications Administered Discontinued Medications Generic Name Dose Route Start Last Admin Trade Name Freq PRN Reason Stop Dose Admin Acetaminophen 975 mg 06/14/22 18:38 06/14/22 18:41 Acetaminophen 325 Mg Tablet PO 06/14/22 18:39 975 mg ONCE ONE Administration Oxycodone HCl 10 mg 06/14/22 18:39 06/14/22 18:47 Oxycodone Hcl Immed Release 5 Mg Tablet PO 06/14/22 18:40 10 mg ONCE ONE Administration <Lola Dobbs CNP - Last Filed: 06/14/22 23:41> Medical Decision Making Medical Decision Making [facility] Narrative: Patient is a 56-year-old male with a past medical history of arthritis, gout presented to emergency department for evaluation of pain to the right lower extremity as noted in HPI. Is able to range the right noon, pain is worse and full extension and flexion greater than 90 degrees. Extremity is neurovascularly intact distally. Does not appear consistent with septic arthritis. Afebrile, no tachycardia, no leukocytosis. CBC and CMP are overall unremarkable. Ultrasound does not indicate DVT. Suspect pain be secondary to his gouty arthritis provided with prescription for prednisone, advised use of Tylenol, and given prescription for Oxycodone, reviewed state opioid registry. Advised outpatient follow-up with primary care provider. Discussed worrisome signs and symptoms to return back to emergency department for. All questions answered. Discharged in stable condition. <Lola Dobbs CNP - Last Filed: 06/14/22 23:41> Differential Diagnosis Differential Diagnoses: The differential diagnosis associated with the presentation includes (Gout, arthritis, Ford cyst, DVT, musculoskeletal strain.) <Lola Dobbs CNP - Last Filed: 06/14/22 23:41> Lab Data [facility] Lab Attestation statement: I reviewed the patient's lab results. <Lola Dobbs CNP - Last Filed: 06/14/22 23:41> Result Diagrams: : 06/14/22 19:45 06/14/22 19:45 <Vaibhav Leach MD - Last Filed: 06/14/22 18:46> Labs: Lab Results 06/14/22 06/14/22 06/14/22 Range/Units 19:45 19:45 19:45 WBC 9.3 (4.8-10.8) X10*3/uL RBC 4.66 (4.60-5.80) X10*6/uL Hgb 14.3 (14.0-18.0) g/dl Hct 43.4 (42.0-52.0) % MCV 93.1 (80.0-98.0) fL MCH 30.7 (27.0-33.0) pg MCHC 32.9 (31.0-36.0) g/dl RDW 12.3 (11.0-16.0) % Plt Count 208 (160-400) X10*3/uL MPV 9.3 L (9.4-12.4) fL Immature Gran % (Auto) 0.5 H (0.0-0.4) % Neut % (Auto) 74.0 H (45-73) % Lymph % (Auto) 19.6 L (20-40) % [place] % (Auto) 4.9 (2-11) % Eos % (Auto) 0.7 (0-4) % Baso % (Auto) 0.3 (0-2) % Lymph # (Auto) 1.8 (1.2-4.9) X10*3/uL [place] # (Auto) 0.5 (0.1-1.2) X10*3/uL Eos # (Auto) 0.1 (0.0-0.4) X10*3/uL Baso # (Auto) 0.0 (0.0-0.2) X10*3/uL Abs Immat Gran (auto) 0.05 H (0.00-0.03) X10*3/uL Absolute Neuts (auto) 6.9 (2.0-8.3) x10*3/uL Absolute Nucleated RBC 0.000 (0.0-0.012) X10*3/uL Nucleated RBC % (auto) 0.0 (0.0-0.2) /100WBC PT 11.1 (10.0-13.1) SEC INR 1.0 (0.9-1.1) APTT 30.0 (26.0-36.4) SEC D-Dimer High Sensitivty 250 NG/ML Sodium 138 (135-145) mmol/L Potassium 4.6 (3.3-5.1) mmol/L Chloride 99 (96-108) mmol/L Carbon Dioxide 31 H (22-29) mmol/L Anion Gap 13 (12-20) BUN 14 (9-16) mg/dL Creatinine 0.84 (0.5-1.4) mg/dL Estim Creat Clear Calc 140.1 Estimated GFR > 60 Random Glucose 133 H (60-115) mg/dL Calcium 9.0 (8.4-10.2) mg/dL Total Bilirubin 0.5 (0.0-1.0) mg/dL AST 13 (5-37) U/L ALT 16 (0-40) U/L Alkaline Phosphatase 92 (39-117) U/L Total Protein 6.7 (6.5-8.0) g/dL Albumin 4.0 (3.5-5.0) g/dL <Vaibhav Leach MD - Last Filed: 06/14/22 18:46> Lab Results 06/14/22 06/14/22 06/14/22 Range/Units 19:45 19:45 19:45 WBC 9.3 (4.8-10.8) X10*3/uL RBC 4.66 (4.60-5.80) X10*6/uL Hgb 14.3 (14.0-18.0) g/dl Hct 43.4 (42.0-52.0) % MCV 93.1 (80.0-98.0) fL MCH 30.7 (27.0-33.0) pg MCHC 32.9 (31.0-36.0) g/dl RDW 12.3 (11.0-16.0) % Plt Count 208 (160-400) X10*3/uL MPV 9.3 L (9.4-12.4) fL Immature Gran % (Auto) 0.5 H (0.0-0.4) % Neut % (Auto) 74.0 H (45-73) % Lymph % (Auto) 19.6 L (20-40) % [place] % (Auto) 4.9 (2-11) % Eos % (Auto) 0.7 (0-4) % Baso % (Auto) 0.3 (0-2) % Lymph # (Auto) 1.8 (1.2-4.9) X10*3/uL [place] # (Auto) 0.5 (0.1-1.2) X10*3/uL Eos # (Auto) 0.1 (0.0-0.4) X10*3/uL Baso # (Auto) 0.0 (0.0-0.2) X10*3/uL Abs Immat Gran (auto) 0.05 H (0.00-0.03) X10*3/uL Absolute Neuts (auto) 6.9 (2.0-8.3) x10*3/uL Absolute Nucleated RBC 0.000 (0.0-0.012) X10*3/uL Nucleated RBC % (auto) 0.0 (0.0-0.2) /100WBC PT 11.1 (10.0-13.1) SEC INR 1.0 (0.9-1.1) APTT 30.0 (26.0-36.4) SEC D-Dimer High Sensitivty 250 NG/ML Sodium 138 (135-145) mmol/L Potassium 4.6 (3.3-5.1) mmol/L Chloride 99 (96-108) mmol/L Carbon Dioxide 31 H (22-29) mmol/L Anion Gap 13 (12-20) BUN 14 (9-16) mg/dL Creatinine 0.84 (0.5-1.4) mg/dL Estim Creat Clear Calc 140.1 Estimated GFR > 60 Random Glucose 133 H (60-115) mg/dL Calcium 9.0 (8.4-10.2) mg/dL Total Bilirubin 0.5 (0.0-1.0) mg/dL AST 13 (5-37) U/L ALT 16 (0-40) U/L Alkaline Phosphatase 92 (39-117) U/L Total Protein 6.7 (6.5-8.0) g/dL Albumin 4.0 (3.5-5.0) g/dL <Lola Dobbs CNP - Last Filed: 06/14/22 23:41> Discharge Plan Discharge Clinical Impression: Arthritis of knee, right <Vaibhav Leach MD - Last Filed: 06/14/22 18:46> Patient Disposition: Home, Self-Care <Vaibhav Leach MD - Last Filed: 06/14/22 18:46> Additional Instructions: You can take Tylenol 500 mg, 2 tablets (1,000mg) every 4-6 hours as needed for pain, but not to exceed 3 doses daily (3,000mg). Prescription for oxycodone was sent to the pharmacy to use as needed for severe pain, this is an opiate medication which may be addictive and can make you drowsy. Please only use this for severe pain. Do not drive, drink alcohol, operate machinery, or work while taking this medication. Additionally, prescription for prednisone was sent to your pharmacy, please complete this entire course. Follow-up with your primary care provider within the next week Return to emergency department any new or worsening symptoms or concerns. <Vaibhav Leach MD - Last Filed: 06/14/22 18:46> Prescriptions: New prednisone 20 mg tablet 40 mg PO DAILY Qty: 10 0RF oxycodone 5 mg tablet 5 mg PO Q6H PRN (Reason: pain) Qty: 10 0RF Rx Instructions: Partial Fill upon patient request. No Action allopurinol 100 mg tablet 2 tab PO DAILY Rx Instructions: take one tab for 7 days then increase to tabs acetaminophen 500 mg tablet 1,000 mg PO QID PRN (Reason: pain) Qty: 30 0RF cephalexin 500 mg tablet 500 mg PO QID 7 Days Qty: 28 0RF oxycodone 5 mg tablet 5 mg PO Q6H PRN (Reason: pain) Qty: 14 0RF Rx Instructions: Partial Fill upon patient request. prednisone 20 mg tablet 60 mg PO DAILY 3 Days Qty: 9 0RF naproxen [Naprosyn] 500 mg tablet 500 mg PO BID PRN (Reason: pain) Qty: 14 0RF prednisone 10 mg tablet See Rx Instructions .ROUTE .COMPLEX Qty: 21 0RF Rx Instructions: 4tab (40mg) daily x2d, 3tab (30mg) daily x 2d, 2tab (20mg) daily x2d, 1tab (10 mg) daily x2d, then half tab (5mg) daily x2d <Vaibhav Leach MD - Last Filed: 06/14/22 18:46> Referrals: Physician,Unknown J [Primary Care Provider] - <Vaibhav Leach MD - Last Filed: 06/14/22 18:46> Interventions: ED Discharge Assessment Last Done: 06/14/22 21:06 <Vaibhav Leach MD - Last Filed: 06/14/22 18:46> Discharge Date/Time: 06/14/22 21:06 <Vaibhav Leach MD - Last Filed: 06/14/22 18:46>
[2022-06-14] MEDS: Acetaminophen 325 MG TABLET 975 MG PO (18:41)
[2022-06-14] MEDS: oxyCODONE HCl Immed Release 5 MG TABLET 10 MG PO (18:47)
[2022-06-14 19:54] LABS: Basophils Percent Auto 0.3 % (0-2); Eosinophils Absolute Auto 0.1 X10*3/uL (0.0-0.4); Eosinophils Percent Auto 0.7 % (0-4); Hematocrit 43.4 % (42.0-52.0); Hemoglobin 14.3 g/dl (14.0-18.0); Imm Gran Abs Auto 0.05 X10*3/uL (0.00-0.03); Imm Gran Pct Auto 0.5 % (0.0-0.4); Lymphocytes Absolute Auto 1.8 X10*3/uL (1.2-4.9); Lymphocytes Percent Auto 19.6 % (20-40); MANUAL DIFF FLAG NO; Mean Corpuscular HGB Conc 32.9 g/dl (31.0-36.0); Mean Corpuscular Hemoglobin 30.7 pg (27.0-33.0); Mean Corpuscular Volume 93.1 fL (80.0-98.0); Mean Platelet Volume 9.3 fL (9.4-12.4); Monocytes Absolute Auto 0.5 X10*3/uL (0.1-1.2); Monocytes Percent Auto 4.9 % (2-11); Neutrophils Absolute Auto 6.9 x10*3/uL (2.0-8.3); Platelet Count 208 X10*3/uL (160-400); Red Blood Count 4.66 X10*6/uL (4.60-5.80); Red Cell Distribution Width 12.3 % (11.0-16.0); White Blood Count 9.3 X10*3/uL (4.8-10.8)
[2022-06-14 20:03] LABS: Prothrombin Time 11.1 SEC (10.0-13.1)
[2022-06-14 20:05] LABS: D Dimer High Sensitivity 250 NG/ML
[2022-06-14 20:15] LABS: Alanine Aminotransferase 16 U/L (0-40); Alkaline Phosphatase 92 U/L (39-117); Anion Gap 13 (12-20); Aspartate Amino Transferase 13 U/L (5-37); Bilirubin Total 0.5 mg/dL (0.0-1.0); Blood Urea Nitrogen 14 mg/dL (9-16); Carbon Dioxide 31 mmol/L (22-29); Chloride 99 mmol/L (96-108); Creatinine Clr Calc Pharmacy 140.1; Estimated Glomerular Filt Rate > 60; Glucose Random 133 mg/dL (60-115); Potassium 4.6 mmol/L (3.3-5.1); Sodium 138 mmol/L (135-145); Total Protein 6.7 g/dL (6.5-8.0)
[2022-06-14 21:05] VITALS: BP 140/78; PULSE 63; RESP 16; O2SAT 95
== END 2022-06-14 21:06 | disposition home or self-care (01) ==
PROVIDERS: Emergency Provider Emergency Medicine Emergency Medical Services
DX: M17.11 Unilateral primary osteoarthritis, right knee (principal); M79.661 Pain in right lower leg; E78.5 Hyperlipidemia, unspecified; E66.01 Morbid (severe) obesity due to excess calories; Z68.43 Body mass index [BMI] 50.0-59.9, adult
CPT/HCPCS: 36415; 80053; 85025; 85379; 85610; 85730; 93971; 99283; 99284

== ENCOUNTER 2022-07-18 11:36 | Emergency (ER) | payer MEDICAID, SELFPAY ==
[2022-07-18 11:47] VITALS: BP 129/70; PULSE 80; RESP 16; TEMP 36.8; O2SAT 96; BMI 53.1
--- NOTE | 2022-07-18 11:49 | ED_ITS ---
HPI - Extremity Problem General Chief complaint: Extremity Problem <FLORENCIO Cardona Last Filed: 07/18/22 11:50> Stated complaint: Gout flare <FLORENCIO Cardona Last Filed: 07/18/22 11:50> Time Seen by Provider: 07/18/22 12:33 <FLORENCIO Cardona Last Filed: 07/18/22 11:50> Source: patient <FLORENCIO Bartlett Last Filed: 07/18/22 12:51> Mode of arrival: ambulatory <FLORENCIO Bartlett Last Filed: 07/18/22 12:51> Limitations: no limitations <FLORENCIO Bartlett Last Filed: 07/18/22 12:51> History of Present Illness HPI Narrative: 56-year-old male with a past medical history of obesity and gout presenting to the ED with complaints of acute gout flare-up over the past week worse today. Reports that he was seen at [facility] and given indomethacin for a few days and it helped this pain although once he completed the treatment his symptoms returned. He did not get any prednisone or any other medications at this visit. He reports that today he has been having trouble weight-bearing and he is unable to place any weight on the right knee. He reports this is his normal gout flare up that this normally what happens. He denies any fevers, chills, dizziness, headaches, neck pain /stiffness, trouble swallowing or breathing, chest pain or shortness of breath, Cough, dyspnea on exertion, orthopnea palpitations, paresthesias, abdominal pain, dysuria, hematuria, diarrhea constipation, black or bloody stools, lower extremity edema or calf tenderness, recent travel or sick contacts or any other symptoms complaints or concerns at this time. <FLORENCIO Bartlett Last Filed: 07/18/22 12:51> MD Complaint: joint swelling and joint pain <FLORENCIO Bartlett Last Filed: 07/18/22 12:51> Onset (ago): week(s) (1-2 weeks worse today ) <FLORENCIO Bartlett Last Filed: 07/18/22 12:51> Pain Consistency: constant <FLORENCIO Bartlett Last Filed: 07/18/22 12:51> Location: right and knee <FLORENCIO Bartlett Last Filed: 07/18/22 12:51> Severity scale (1-10): 10 <FLORENCIO Bartlett Last Filed: 07/18/22 12:51> Quality: aching and constant <FLORENCIO Bartlett - Last Filed: 07/18/22 12:51> Radiation: none <FLORENCIO Bartlett Last Filed: 07/18/22 12:51> Relieving factors: nothing <FLORENCIO Bartlett Last Filed: 07/18/22 12:51> Exacerbating factors: range of motion, weight bearing and palpation <FLORENCIO Bartlett Last Filed: 07/18/22 12:51> Associated symptoms: denies other symptoms <FLORENCIO Bartlett Last Filed: 07/18/22 12:51> Context: history of gout <FLORENCIO Bartlett Last Filed: 07/18/22 12:51> Related Data Home medications: Home Medications Medication Instructions Recorded Confirmed allopurinol 100 mg tablet 2 tab PO DAILY 05/24/21 05/29/21 Previous Rx's Medication Instructions Recorded prednisone 10 mg tablet See Rx Instructions .Route 06/09/21 .COMPLEX #21 tabs acetaminophen 500 mg tablet 1,000 mg PO QID PRN pain #30 tabs 03/26/22 cephalexin 500 mg tablet 500 mg PO QID 7 days #28 tabs 03/26/22 naproxen 500 mg tablet (Naprosyn) 500 mg PO BID PRN pain #14 tabs 03/26/22 oxycodone 5 mg tablet 5 mg PO Q6H PRN pain #14 tabs 03/26/22 prednisone 20 mg tablet 60 mg PO DAILY 3 days #9 tabs 03/26/22 oxycodone 5 mg tablet 5 mg PO Q6H PRN pain #10 tabs 06/14/22 prednisone 20 mg tablet 40 mg PO DAILY #10 tabs 06/14/22 indomethacin 50 mg capsule 50 mg PO Q8H #30 caps 07/18/22 oxycodone 5 mg tablet 5 mg PO Q6H PRN pain #14 tabs 07/18/22 prednisone 20 mg tablet 40 mg PO DAILY inflammation 5 days 07/18/22 #10 tabs <FLORENCIO Cardona - Last Filed: 07/18/22 11:50> Allergies/Adverse reactions: Allergies Allergy/AdvReac Type Severity Reaction Status Date / Time No Known Allergies Allergy Verified 05/24/21 16:03 <FLORENCIO Cardona Last Filed: 07/18/22 11:50> Review of Systems Review of Systems: Constitutional : No Weight loss, No Fever, No Chills, No Night Sweats, No Fatigue, No Malaise ENT/Mouth : No Hearing loss, No Ear Pain, No Nasal Congestion, No Sinus Pain, No Hoarseness, No sore throat, No Rhinorrhea, No Swallowing Difficulty Eyes: No Eye Pain, No Swelling, No Redness, No Foreign Body, No Discharge, No Vision Changes Cardiovascular : No Chest Pain, No SOB, No Dyspnea on Exertion, No Orthopnea, No Edema, No Palpitations Respiratory : No Cough, No Sputum, No Wheezing, No Smoke Exposure, No Dyspnea Gastrointestinal : No Nausea, No Vomiting, No Diarrhea, No Constipation, No abdominal Pain, No Hematochezia, No Melena Genitourinary : no irregular bleeding, No Dysuria, No Urinary Frequency, No Hematuria, No Urinary Incontinence, No Urgency, No Flank Pain, No Urinary Flow Changes, No Hesitancy Musculoskeletal : + joint pain/swelling, No Myalgias Skin : No Skin Lesions, No rash Neuro : No Weakness, No Numbness, No Paresthesias, No Loss of Consciousness, No Dizziness, No Headache Psych : No Anxiety/Panic, No Depression, No SI/HI/AH/VH, No Social Issues, Heme/Lymph: No Bruising, No Bleeding,No Lymphadenopathy Endocrine : No Polyuria, No Polydipsia, No Temperature Intolerance <FLORENCIO Bartlett - Last Filed: 07/18/22 12:51> Yes all other systems are reviewed and are negative <FLORENCIO Bartlett Last Filed: 07/18/22 12:51> [facility] Past Medical History Attestation statement: The following information was validated with the patient. <FLORENCIO Bartlett Last Filed: 07/18/22 12:51> Source: old records reviewed and nursing notes reviewed <FLORENCIO Bartlett Last Filed: 07/18/22 12:51> Medical History: Medical History Arthritis Gout Hyperlipidemia <FLORENCIO Cardona - Last Filed: 07/18/22 11:50> Surgical History: Surgical History H/O hernia repair <FLORENCIO Cardona - Last Filed: 07/18/22 11:50> Family History Family History: Family History Other No significant family history <FLORENCIO Cardona - Last Filed: 07/18/22 11:50> Social History Social History: Social History Household Members: Other Housing: Condominium Do you presently have visiting nurse or other home services: No Patient Tobacco Use Status: Never used Tobacco Advance Directives: Yes Advance Directives on File: Yes Advance Directives Date on File: 06/10/21 service: Yes Current occupational status: employed <FLORENCIO Cardona - Last Filed: 07/18/22 11:50> Physical Exam Vital Signs: Vital Signs: Last Vital Signs Temp 98.2 F 07/18/22 11:47 Pulse 80 07/18/22 11:47 Resp 16 07/18/22 11:47 BP 129/70 07/18/22 11:47 Pulse Ox 96 07/18/22 11:47 O2 Del Method 07/18/22 11:47 BMI result Body Mass Index 53.1 <FLORENCIO Cardona - Last Filed: 07/18/22 11:50> Vital Signs: Last Vital Signs Temp 98.2 F 07/18/22 11:47 Pulse 80 07/18/22 11:47 Resp 16 07/18/22 11:47 BP 129/70 07/18/22 11:47 Pulse Ox 96 07/18/22 11:47 O2 Del Method 07/18/22 11:47 BMI result Body Mass Index 53.1 vital signs have been reviewed as normal and appeared to be correct. Blood pressure normal Heart rate normal. Respiration rate normal. Temperature normal. Oxygen saturation normal. <FLORENCIO Bartlett - Last Filed: 07/18/22 12:51> Appearance: Alert. Oriented X3. No acute distress. Head: Normal external exam. Normocephalic. Atraumatic. Eyes: PERRLA. EOMI. Conjunctiva and sclera normal. Eyelids normal. ENT: Pharynx normal. Uvula midline. Moist mucous membranes. Neck: Normal inspection. Neck supple. FROM. CVS: Normal heart rate and rhythm. Respiratory: No respiratory distress. Painless inspiration. Skin: Skin warm and dry. Normal skin color. Normal skin turgor. No rashes/lesions/lacerations noted. Extremities: No lower extremity edema. no calf tenderness is noted. Although patient has moderate tenderness palpation to the right knee unable to bend or bear weight on it. There is no erythema/ streaking/ induration or fluctuance or signs infection to the right knee. No obvious ligamentous or tendon injury noted. Otherwise all other extremities exhibit normal range of motion nontender. Neuro: Oriented X 3. No motor deficit. No sensory deficit. Reflexes normal. Normal steady gait. No focal neuro deficits noted. Vascular: + radial pulses/+ 2 distal pedal pulses/+2 dorsalis pedis b/l. Normal cap refill. No cyanosis noted to upper extremity nails and lower extremity toes nails. <FLORENCIO Bartlett - Last Filed: 07/18/22 12:51> Course Course Course Narrative: RME - 56 yo male with history of obesity, history of gout presenting with an acute gout flare of the right knee when he woke up today. No trauma. Unable to bend or bear weight. No red or hot in triage but significant ROM limitations. XR ordered - meds for presumed gout and pain ordered. <FLORENCIO Cardona - Last Filed: 07/18/22 11:50> RME - 56 yo male with history of obesity, history of gout presenting with an acute gout flare of the right knee when he woke up today. No trauma. Unable to bend or bear weight. No red or hot in triage but significant ROM limitations. meds for presumed gout and pain ordered. <FLORENCIO Bartlett - Last Filed: 07/18/22 12:51> Reevaluation(s) Reevaluation #1: Patient presenting with gout flare up today. On exam he has moderate tenderness palpation to the right knee. Unable to completely bend it due to pain. Otherwise no obvious ligamentous or tendon injury noted. There is no erythema. There is no streaking fluctuance or signs of infection. No lower extremity edema or calf tenderness is noted. ?Not c/w DVT. Not c/w necrotizing fasciitis/ myositis/ arterial occlusion/ osteomyelitis/ compartment syndrome/ septic joint. No imaging indicated at this time and patient reports he does not feel like he needs an x-ray. Therefore at this time will DC home with symptomatic treatment patient requesting refill on indomethacin and prednisone so he does not have to continue to return to the ER. I explained to him I can do this although he will need to continue getting refills from his PCP. Otherwise he cannot have a refill for the oxycodone. Will DC home with symptomatic treatment instructions return if any new or worsening symptoms follow up with PCP for further refills. Patient's agrees with this plan. <FLORENCIO Bartlett - Last Filed: 07/18/22 12:51> Time: 12:45 <FLORENCIO Bartlett - Last Filed: 07/18/22 12:51> Medications Administered Discontinued Medications Generic Name Dose Route Start Last Admin Trade Name Freq PRN Reason Stop Dose Admin Ketorolac Tromethamine 30 mg 07/18/22 11:49 07/18/22 12:11 Ketorolac Tromethamine 30 Mg/Ml Vial IM 07/18/22 11:50 30 mg ONCE ONE Administration Oxycodone HCl 5 mg 07/18/22 11:49 07/18/22 12:11 Oxycodone Hcl Immed Release 5 Mg Tablet PO 07/18/22 11:50 5 mg ONCE ONE Administration Prednisone 60 mg 07/18/22 11:49 07/18/22 12:11 Prednisone 20 Mg Tablet PO 07/18/22 11:50 60 mg ONCE ONE Administration <FLORENCIO Cardona - Last Filed: 07/18/22 11:50> Medications Administered Discontinued Medications Generic Name Dose Route Start Last Admin Trade Name Freq PRN Reason Stop Dose Admin Ketorolac Tromethamine 30 mg 07/18/22 11:49 07/18/22 12:11 Ketorolac Tromethamine 30 Mg/Ml Vial IM 07/18/22 11:50 30 mg ONCE ONE Administration Oxycodone HCl 5 mg 07/18/22 11:49 07/18/22 12:11 Oxycodone Hcl Immed Release 5 Mg Tablet PO 07/18/22 11:50 5 mg ONCE ONE Administration Prednisone 60 mg 07/18/22 11:49 07/18/22 12:11 Prednisone 20 Mg Tablet PO 07/18/22 11:50 60 mg ONCE ONE Administration <FLORENCIO Bartlett - Last Filed: 07/18/22 12:51> Medical Decision Making Prescription Management I considered prescription management with: Pain Medication <FLORENCIO Bartlett - Last Filed: 07/18/22 12:51> Discharge Plan Discharge Clinical Impression: Acute gout of knee <FLORENCIO Cardona - Last Filed: 07/18/22 11:50> Patient Disposition: Home, Self-Care <FLORENCIO Cardona Last Filed: 07/18/22 11:50> Instructions: Low Purine Diet (ED), Gout (ED) <FLORENCIO Cardona - Last Filed: 07/18/22 11:50> Prescriptions: New indomethacin 50 mg capsule 50 mg PO Q8H Qty: 30 3RF Rx Instructions: administer with food or milk prednisone 20 mg tablet 40 mg PO DAILY 5 Days Qty: 10 3RF oxycodone 5 mg tablet 5 mg PO Q6H PRN (Reason: pain) Qty: 14 0RF Rx Instructions: Partial Fill upon patient request. No Action allopurinol 100 mg tablet 2 tab PO DAILY Rx Instructions: take one tab for 7 days then increase to tabs acetaminophen 500 mg tablet 1,000 mg PO QID PRN (Reason: pain) Qty: 30 0RF cephalexin 500 mg tablet 500 mg PO QID 7 Days Qty: 28 0RF oxycodone 5 mg tablet 5 mg PO Q6H PRN (Reason: pain) Qty: 14 0RF Rx Instructions: Partial Fill upon patient request. prednisone 20 mg tablet 60 mg PO DAILY 3 Days Qty: 9 0RF naproxen [Naprosyn] 500 mg tablet 500 mg PO BID PRN (Reason: pain) Qty: 14 0RF prednisone 20 mg tablet 40 mg PO DAILY Qty: 10 0RF oxycodone 5 mg tablet 5 mg PO Q6H PRN (Reason: pain) Qty: 10 0RF Rx Instructions: Partial Fill upon patient request. prednisone 10 mg tablet See Rx Instructions .ROUTE .COMPLEX Qty: 21 0RF Rx Instructions: 4tab (40mg) daily x2d, 3tab (30mg) daily x 2d, 2tab (20mg) daily x2d, 1tab (10 mg) daily x2d, then half tab (5mg) daily x2d <FLORENCIO Cardona - Last Filed: 07/18/22 11:50> Referrals: [facility] [Primary Care Provider] - 2 days <FLORENCIO Cardona - Last Filed: 07/18/22 11:50>
[2022-07-18] MEDS: predniSONE 20 MG TABLET 60 MG PO (12:11)
[2022-07-18] MEDS: Ketorolac Tromethamine 30 MG/ML VIAL IM (12:11)
[2022-07-18] MEDS: oxyCODONE HCl Immed Release 5 MG TABLET PO (12:11)
--- NOTE | 2022-07-18 12:22 | PC.NURSE ---
pt presents via WC to dept. sts that he has a had gout in the past in his toe, but now it is occuring in the knee. sts that he had an rx for indomethacin which kept his symptoms under control- pt medicated with oxycodone 5mg, toradol 30mg, and prednisone 60mg- pt awating xrays and provisder
[2022-07-18] MEDS: Indomethacin 25 MG CAPSULE 50 MG PO (13:11)
== END 2022-07-18 13:35 | disposition home or self-care (01) ==
PROVIDERS: Emergency Provider Emergency Medicine
DX: M10.062 Idiopathic gout, left knee (principal); Z79.899 Other long term (current) drug therapy
CPT/HCPCS: 96372; 99284; J1885

== ENCOUNTER 2022-08-16 09:54 | Outpatient (REF) | payer MEDICAID, SELFPAY | END 2022-08-16 09:55 | disposition home or self-care (01) | LOC: HO.HOSX 09:54 | PROVIDERS: Visit Provider Physician Assistant | DX: Z13.89 Encounter for screening for other disorder (principal) ==

== ENCOUNTER 2022-09-20 10:35 | Outpatient (RCR) | payer MEDICAID, SELFPAY | END 2023-01-10 07:50 | disposition home or self-care (01) | LOC: HO.PTWFD 10:35 | PROVIDERS: PCP Nurse Practitioner Family; Visit Provider Nurse Practitioner Family | DX: M25.561 Pain in right knee (principal) | CPT/HCPCS: 97110; 97162; 97535 ==

== ENCOUNTER 2022-09-27 11:55 | Outpatient (REF) | payer MEDICAID, SELFPAY ==
--- NOTE | ~2022-09-27 | XR_ITS ---
EXAMINATION: XR ANKLE, RIGHT CLINICAL INFORMATION: Right ankle pain COMPARISON: Ankle radiographs 02/14/2021 TECHNIQUE: AP, lateral, and mortise views of the right ankle. FINDINGS: No acute fracture or dislocation. Lower extremity soft tissue swelling. Obscuration of Kager fat pad which could be seen in the setting of a retrocalcaneal bursitis. Mild degenerative changes of the foot and ankle with degenerative spurring of the tibiotalar joint and dorsal midfoot foot and small Achilles tendon enthesophyte. XR/XR ankle RT min 3V IMPRESSION: 1. Obscuration of the Kager fat pad which could be seen in the setting of a retrocalcaneal bursitis. 2. Mild degenerative changes of the foot and ankle. 3. Lower extremity soft tissue swelling.
== END 2022-09-27 11:56 | disposition home or self-care (01) ==
LOC: HO.XRAY 11:55
PROVIDERS: PCP Nurse Practitioner Family; Visit Provider Nurse Practitioner Family
DX: M25.571 Pain in right ankle and joints of right foot (principal)
CPT/HCPCS: 73610

== ENCOUNTER 2022-10-12 07:41 | Outpatient (REF) | payer MEDICAID, SELFPAY | END 2022-10-12 07:42 | disposition home or self-care (01) | LOC: HO.HOSX 07:41 | PROVIDERS: Visit Provider Physician Assistant | DX: Z13.89 Encounter for screening for other disorder (principal) ==

== ENCOUNTER 2023-03-28 02:12 | Emergency (ER) | payer MEDICAID, SELFPAY ==
[2023-03-28 02:16] VITALS: BP 165/79; PULSE 67; RESP 18; TEMP 36.7; O2SAT 95; BMI 50.2
--- NOTE | 2023-03-28 04:55 | PC.NURSE ---
Pt c/o R-leg wound. Pt reports he hit leg on car hitch and has had a draining woundX1 week.
--- NOTE | 2023-03-28 05:50 | ED.WOUNDLAC ---
HPI - Wound/Laceration General Chief Complaint: Wound/Laceration Stated Complaint: infected wound Time Seen by Provider: 03/28/23 05:29 Source: patient Mode of arrival: ambulatory Limitations: no limitations History of Present Illness HPI narrative: Patient comes to the emergency room complaining of cellulitis and an open eschar. Patient states that he hit his right fuentes on a hitch approximately a week ago. Patient states that the blister formed and popped. Since then, patient states that he has been draining liquidy drainage approximately for 4 days. Patient complaining of localized pain. Patient states that he is up-to-date with Tdap Related Data Home Medications Medication Instructions Recorded Confirmed allopurinol 100 mg tablet 2 tab PO DAILY 05/24/21 05/29/21 Previous Rx's Medication Instructions Recorded prednisone 10 mg tablet See Rx Instructions .Route 06/09/21 .COMPLEX #21 tabs acetaminophen 500 mg tablet 1,000 mg (2 x 500 mg) PO QID PRN 03/26/22 pain #30 tabs cephalexin 500 mg tablet 500 mg PO QID 7 days #28 tabs 03/26/22 naproxen 500 mg tablet (Naprosyn) 500 mg PO BID PRN pain #14 tabs 03/26/22 oxycodone 5 mg tablet 5 mg PO Q6H PRN pain #14 tabs 03/26/22 prednisone 20 mg tablet 60 mg (3 x 20 mg) PO DAILY 3 days 03/26/22 #9 tabs oxycodone 5 mg tablet 5 mg PO Q6H PRN pain #10 tabs 06/14/22 prednisone 20 mg tablet 40 mg (2 x 20 mg) PO DAILY #10 tabs 06/14/22 indomethacin 50 mg capsule 50 mg PO Q8H #30 caps 07/18/22 oxycodone 5 mg tablet 5 mg PO Q6H PRN pain #14 tabs 07/18/22 prednisone 20 mg tablet 40 mg (2 x 20 mg) PO DAILY 07/18/22 inflammation 5 days #10 tabs cephalexin 500 mg capsule 500 mg PO BID #20 caps 03/28/23 doxycycline hyclate 100 mg capsule 100 mg PO DAILY #20 caps 03/28/23 tramadol 50 mg tablet 50 mg PO BID PRN pain #7 tabs 03/28/23 Allergies Allergy/AdvReac Type Severity Reaction Status Date / Time No Known Allergies Allergy Verified 05/24/21 16:03 Review of Systems Review of Systems: Constitutional : No Weight loss, No Fever, No Chills, No Night Sweats, No Fatigue, No Malaise ENT/Mouth : No Hearing loss, No Ear Pain, No Nasal Congestion, No Sinus Pain, No Hoarseness, No sore throat, No Rhinorrhea, No Swallowing Difficulty Eyes: No Eye Pain, No Swelling, No Redness, No Foreign Body, No Discharge, No Vision Changes Cardiovascular : No Chest Pain, No SOB, No Dyspnea on Exertion, No Orthopnea, No Edema, No Palpitations Respiratory : No Cough, No Sputum, No Wheezing, No Smoke Exposure, No Dyspnea Gastrointestinal : No Nausea, No Vomiting, No Diarrhea, No Constipation, No abdominal Pain, No Hematochezia, No Melena Genitourinary : no irregular bleeding, No Dysuria, No Urinary Frequency, No Hematuria, No Urinary Incontinence, No Urgency, No Flank Pain, No Urinary Flow Changes, No Hesitancy Musculoskeletal : No joint pain, No Myalgias, No Joint Swelling Skin : Complaining of an eschar acute sweeping, painful Neuro : No Weakness, No Numbness, No Paresthesias, No Loss of Consciousness, No Dizziness, No Headache Psych : No Anxiety/Panic, No Depression, No SI/HI/AH/VH, No Social Issues, Heme/Lymph: No Bruising, No Bleeding,No Lymphadenopathy Endocrine : No Polyuria, No Polydipsia, No Temperature Intolerance PMF Past Medical History Medical History Arthritis Hyperlipidemia Gout Surgical History H/O hernia repair Family History Family History Other No significant family history Social History Social History Household Members: Other Housing: Condominium Do you presently have visiting nurse or other home services: No Alcohol intake: never Patient Tobacco Use Status: Never used Tobacco Smoked in Last 30 Days: No Use of substances other than those prescribed or required for medical reasons: No Advance Directives: Yes Advance Directives on File: Yes Advance Directives Date on File: 06/10/21 service: Yes Current occupational status: employed Physical Exam Vital Signs: Vital Signs: Last Vital Signs Temp 98.1 F 03/28/23 02:16 Pulse 67 03/28/23 02:16 Resp 18 03/28/23 02:16 BP 165/79 H 03/28/23 02:16 Pulse Ox 95 03/28/23 02:16 O2 Del Method Room Air 03/28/23 02:16 BMI result Body Mass Index 50.2 Const: Other: Appearance: Alert. Oriented X3. No acute distress. Eyes: Pupils equal, round and reactive to light. ENT: Pharynx normal. Neck: Normal inspection. Neck supple. No lymph nodes noted. No crepitus CVS: Normal heart rate and rhythm. Pulses normal. Normal S1 and S2 Respiratory: No respiratory distress. Breath sounds normal. No Wheezing. No rales Abdomen: Soft and nontender. No rigidity. No distention. Skin: Skin warm and dry. Skin over the fuentes area erythematous, eschar approximately 4 cm x 4 cm, does not seem to be draining pus. However, surrounding area is erythematous on the fuentes, noncircumferential. No calf pain Extremities: No lower extremity edema. No Lacerations. No Rash Neuro: Oriented X 3. No motor deficit. No sensory deficit. Moving all extremities. No slurred speech. CN 2 through 12 grossly intact Psych: calm, cooperative, normal affect Medical Decision Making Medical Decision Making MDM Narrative: -I discussed the physical exam with the patient, patient will need antibiotics. Discussed with the patient that if the wound does not improve, he needs to come to the emergency room unlikely to be admitted. Patient has no fever chills, sepsis no suspected. Patient has not used any antibiotics for his wound. Discussed with the patient that it is likely that he would benefit from a visit to the Wound Clinic. -1st dose of doxycycline and Keflex given in the ED Tests considered The following testing was considered but not selected: -I considered doing labs. However, patient does have cellulitis, no suspicion of sepsis. Patient is likely to improve with p.o. antibiotics. Discharge Plan Discharge Clinical Impression: Cellulitis Patient Disposition: Home, Self-Care Instructions: Cellulitis (ED) Additional Instructions: Please follow-up with your primary care physician tomorrow. If you have any worsening or new symptoms, please return to the emergency room or call 911 Prescriptions: New doxycycline hyclate 100 mg capsule 100 mg PO DAILY Qty: 20 0RF cephalexin 500 mg capsule 500 mg PO BID Qty: 20 0RF tramadol 50 mg tablet 50 mg PO BID PRN (Reason: pain) Qty: 7 0RF No Action allopurinol 100 mg tablet 2 tab PO DAILY Rx Instructions: take one tab for 7 days then increase to tabs acetaminophen 500 mg tablet 1,000 mg PO QID PRN (Reason: pain) Qty: 30 0RF cephalexin 500 mg tablet 500 mg PO QID 7 Days Qty: 28 0RF oxycodone 5 mg tablet 5 mg PO Q6H PRN (Reason: pain) Qty: 14 0RF Rx Instructions: Partial Fill upon patient request. prednisone 20 mg tablet 60 mg PO DAILY 3 Days Qty: 9 0RF naproxen [Naprosyn] 500 mg tablet 500 mg PO BID PRN (Reason: pain) Qty: 14 0RF prednisone 20 mg tablet 40 mg PO DAILY Qty: 10 0RF oxycodone 5 mg tablet 5 mg PO Q6H PRN (Reason: pain) Qty: 10 0RF Rx Instructions: Partial Fill upon patient request. prednisone 10 mg tablet See Rx Instructions .ROUTE .COMPLEX Qty: 21 0RF Rx Instructions: 4tab (40mg) daily x2d, 3tab (30mg) daily x 2d, 2tab (20mg) daily x2d, 1tab (10 mg) daily x2d, then half tab (5mg) daily x2d indomethacin 50 mg capsule 50 mg PO Q8H Qty: 30 3RF Rx Instructions: administer with food or milk prednisone 20 mg tablet 40 mg PO DAILY 5 Days Qty: 10 3RF oxycodone 5 mg tablet 5 mg PO Q6H PRN (Reason: pain) Qty: 14 0RF Rx Instructions: Partial Fill upon patient request. Referrals: Becky Tidwell MD [Physician] - 03/29/23
[2023-03-28 06:06] VITALS: BP 165/75; PULSE 66; RESP 16; TEMP 36.9; O2SAT 97
[2023-03-28] MEDS: cephALEXin 500 MG CAPSULE PO (06:17)
[2023-03-28] MEDS: Doxycycline Monohydrate 100 MG CAPSULE PO (06:17)
== END 2023-03-28 06:35 | disposition home or self-care (01) ==
PROVIDERS: Emergency Provider Emergency Medicine
DX: L03.115 Cellulitis of right lower limb (principal); Z79.899 Other long term (current) drug therapy
CPT/HCPCS: 99283; 99284

== ENCOUNTER 2023-04-12 03:47 | Emergency (ER) | payer MEDICAID, SELFPAY ==
[2023-04-12 03:54] VITALS: BP 153/83; PULSE 65; RESP 23; O2SAT 97; BMI 50.2
--- NOTE | 2023-04-12 04:14 | ED.WOUNDLAC ---
HPI - Wound/Laceration General Chief Complaint: Wound/Laceration Stated Complaint: bleeding in leg Time Seen by Provider: 04/12/23 04:04 Source: patient Mode of arrival: ambulatory Limitations: no limitations History of Present Illness HPI narrative: Patient obese with varicose veins had a scab on right lower extremity patient scratched by mistake started bleeding just prior to arrival had profuse bleeding was feeling weak no dizziness no chest pain or palpitation patient not on any blood thinners Related Data Home Medications Medication Instructions Recorded Confirmed allopurinol 100 mg tablet 2 tab PO DAILY 05/24/21 05/29/21 Previous Rx's Medication Instructions Recorded prednisone 10 mg tablet See Rx Instructions .Route 06/09/21 .COMPLEX #21 tabs acetaminophen 500 mg tablet 1,000 mg (2 x 500 mg) PO QID PRN 03/26/22 pain #30 tabs cephalexin 500 mg tablet 500 mg PO QID 7 days #28 tabs 03/26/22 naproxen 500 mg tablet (Naprosyn) 500 mg PO BID PRN pain #14 tabs 03/26/22 oxycodone 5 mg tablet 5 mg PO Q6H PRN pain #14 tabs 03/26/22 prednisone 20 mg tablet 60 mg (3 x 20 mg) PO DAILY 3 days 03/26/22 #9 tabs oxycodone 5 mg tablet 5 mg PO Q6H PRN pain #10 tabs 06/14/22 prednisone 20 mg tablet 40 mg (2 x 20 mg) PO DAILY #10 tabs 06/14/22 indomethacin 50 mg capsule 50 mg PO Q8H #30 caps 07/18/22 oxycodone 5 mg tablet 5 mg PO Q6H PRN pain #14 tabs 07/18/22 prednisone 20 mg tablet 40 mg (2 x 20 mg) PO DAILY 07/18/22 inflammation 5 days #10 tabs cephalexin 500 mg capsule 500 mg PO BID #20 caps 03/28/23 doxycycline hyclate 100 mg capsule 100 mg PO DAILY #20 caps 03/28/23 tramadol 50 mg tablet 50 mg PO BID PRN pain #7 tabs 03/28/23 Allergies Allergy/AdvReac Type Severity Reaction Status Date / Time No Known Allergies Allergy Verified 05/24/21 16:03 Review of Systems Review of Systems: Yes all other systems are reviewed and are negative PMFSH Past Medical History Medical History Arthritis Hyperlipidemia Gout Surgical History H/O hernia repair Family History Family History Other No significant family history Social History Social History Household Members: [facility] Do you presently have visiting nurse or other home services: No Alcohol intake: never Patient Tobacco Use Status: Never used Tobacco Smoked in Last 30 Days: No Use of substances other than those prescribed or required for medical reasons: No Advance Directives: Yes Advance Directives on File: Yes Advance Directives Date on File: 06/10/21 service: Yes Current occupational status: employed Physical Exam Vital Signs: Vital Signs: Last Vital Signs Pulse 62 04/12/23 06:05 Resp 20 04/12/23 06:05 BP 143/76 H 04/12/23 06:05 Pulse Ox 97 04/12/23 03:54 O2 Del Method Room Air 04/12/23 06:05 BMI result Body Mass Index 50.2 Appearance: Alert. Oriented X3. Obese Eyes: PERRLA, No Nystagmus ENT: Pharynx normal. Oral Mucosa moist Neck: Normal inspection. Neck supple. CVS: Normal heart rate and rhythm. Pulses normal. Respiratory: No respiratory distress. Equal air entry bilateral, no wheezing/rales/rhonchi Abdomen: Soft and nontender. Bowel sounds are present, no mass palpable, no CVA tenderness Skin: Skin warm and dry. Normal skin color. Normal skin turgor. Extremities: No lower extremity edema. No calf tenderness actively bleeding from varicose veins right lower extremity Neuro: Oriented X 3. No motor deficit. No sensory deficit.No cerebellar signs , cranial nerves II-XII intact Extrem: Ankle/foot/toe images: 1. Prominent varicose vein with bleeding active Medications Administered Discontinued Medications Generic Name Dose Route Start Last Admin Trade Name Freq PRN Reason Stop Dose Admin Silver Nitrate 1 appl 04/12/23 04:04 04/12/23 04:29 Silver Nitrate Applicator Stick..Ea. TOPICAL 04/12/23 04:05 1 appl ONCE ONE Administration Medical Decision Making Medical Decision Making MDM Narrative: Patient active bleeding from varicose vein local pressure was applied and feeding varicose vein was sutured using 5 0 Vicryl sutures also got a Bicillin nitrate bleeding stopped Keenan wrap was applied labs are stable vitals stable discharge patient home advised to wear compression stocking Lab Data MDM Lab Attestation statement: I reviewed the patient's lab results. 04/12/23 04:24 04/12/23 04:24 Labs: Lab Results 04/12/23 Range/Units 04:24 WBC 8.3 (4.8-10.8) X10*3/uL RBC 3.96 L (4.60-5.80) X10*6/uL Hgb 12.8 L (14.0-18.0) g/dl Hct 37.7 L (42.0-52.0) % MCV 95.2 (80.0-98.0) fL MCH 32.3 (27.0-33.0) pg MCHC 34.0 (31.0-36.0) g/dl RDW 12.2 (11.0-16.0) % Plt Count 185 (160-400) X10*3/uL MPV 9.7 (9.4-12.4) fL Immature Gran % (Auto) 0.2 (0.0-0.4) % Neut % (Auto) 60.0 (45-73) % Lymph % (Auto) 31.9 (20-40) % [place] % (Auto) 5.2 (2-11) % Eos % (Auto) 2.2 (0-4) % Baso % (Auto) 0.5 (0-2) % Lymph # (Auto) 2.6 (1.2-4.9) X10*3/uL [place] # (Auto) 0.4 (0.1-1.2) X10*3/uL Eos # (Auto) 0.2 (0.0-0.4) X10*3/uL Baso # (Auto) 0.0 (0.0-0.2) X10*3/uL Abs Immat Gran (auto) 0.02 (0.00-0.03) X10*3/uL Absolute Neuts (auto) 5.0 (2.0-8.3) x10*3/uL Absolute Nucleated RBC 0.000 (0.0-0.012) X10*3/uL Nucleated RBC % (auto) 0.0 (0.0-0.2) /100WBC PT 12.9 (11.1-13.3) SEC INR 1.1 (0.9-1.1) Sodium 139 (135-145) mmol/L Potassium 4.7 (3.3-5.1) mmol/L Chloride 102 (96-108) mmol/L Carbon Dioxide 28 (22-29) mmol/L Anion Gap 14 (12-20) BUN 20 H (9-16) mg/dL Creatinine 0.98 (0.5-1.4) mg/dL Estim Creat Clear Calc 122.4 Estimated GFR > 60 Random Glucose 168 H (60-115) mg/dL Calcium 9.0 (8.4-10.2) mg/dL Discharge Plan Discharge Clinical Impression: Bleeding from varicose veins of right lower extremity Patient Disposition: Home, Self-Care Instructions: Venous Insufficiency (DC) Additional Instructions: Local care as advised With pressure stocking You have 3 sutures placed will dissolve of their own Prescriptions: No Action allopurinol 100 mg tablet 2 tab PO DAILY Rx Instructions: take one tab for 7 days then increase to tabs acetaminophen 500 mg tablet 1,000 mg PO QID PRN (Reason: pain) Qty: 30 0RF cephalexin 500 mg tablet 500 mg PO QID 7 Days Qty: 28 0RF oxycodone 5 mg tablet 5 mg PO Q6H PRN (Reason: pain) Qty: 14 0RF Rx Instructions: Partial Fill upon patient request. prednisone 20 mg tablet 60 mg PO DAILY 3 Days Qty: 9 0RF naproxen [Naprosyn] 500 mg tablet 500 mg PO BID PRN (Reason: pain) Qty: 14 0RF prednisone 20 mg tablet 40 mg PO DAILY Qty: 10 0RF oxycodone 5 mg tablet 5 mg PO Q6H PRN (Reason: pain) Qty: 10 0RF Rx Instructions: Partial Fill upon patient request. prednisone 10 mg tablet See Rx Instructions .ROUTE .COMPLEX Qty: 21 0RF Rx Instructions: 4tab (40mg) daily x2d, 3tab (30mg) daily x 2d, 2tab (20mg) daily x2d, 1tab (10 mg) daily x2d, then half tab (5mg) daily x2d indomethacin 50 mg capsule 50 mg PO Q8H Qty: 30 3RF Rx Instructions: administer with food or milk prednisone 20 mg tablet 40 mg PO DAILY 5 Days Qty: 10 3RF oxycodone 5 mg tablet 5 mg PO Q6H PRN (Reason: pain) Qty: 14 0RF Rx Instructions: Partial Fill upon patient request. doxycycline hyclate 100 mg capsule 100 mg PO DAILY Qty: 20 0RF cephalexin 500 mg capsule 500 mg PO BID Qty: 20 0RF tramadol 50 mg tablet 50 mg PO BID PRN (Reason: pain) Qty: 7 0RF Interventions: ED Discharge Assessment Last Done: 04/12/23 06:15 Discharge Date/Time: 04/12/23 06:16
[2023-04-12 04:29] LABS: Basophils Percent Auto 0.5 % (0-2); Eosinophils Absolute Auto 0.2 X10*3/uL (0.0-0.4); Eosinophils Percent Auto 2.2 % (0-4); Hematocrit 37.7 % (42.0-52.0); Hemoglobin 12.8 g/dl (14.0-18.0); Imm Gran Abs Auto 0.02 X10*3/uL (0.00-0.03); Imm Gran Pct Auto 0.2 % (0.0-0.4); Lymphocytes Absolute Auto 2.6 X10*3/uL (1.2-4.9); Lymphocytes Percent Auto 31.9 % (20-40); MANUAL DIFF FLAG NO; Mean Corpuscular Hemoglobin 32.3 pg (27.0-33.0); Mean Corpuscular Volume 95.2 fL (80.0-98.0); Mean Platelet Volume 9.7 fL (9.4-12.4); Monocytes Absolute Auto 0.4 X10*3/uL (0.1-1.2); Monocytes Percent Auto 5.2 % (2-11); Platelet Count 185 X10*3/uL (160-400); Red Blood Count 3.96 X10*6/uL (4.60-5.80); Red Cell Distribution Width 12.2 % (11.0-16.0); White Blood Count 8.3 X10*3/uL (4.8-10.8)
[2023-04-12] MEDS: Silver Nitrate Applicator STICK..EA. 1 APPL TOPICAL (04:29)
[2023-04-12 04:37] LABS: INTERNATIONAL NORM RATIO 1.1 (0.9-1.1); Prothrombin Time 12.9 SEC (11.1-13.3)
[2023-04-12 04:42] LABS: Anion Gap 14 (12-20); Blood Urea Nitrogen 20 mg/dL (9-16); Carbon Dioxide 28 mmol/L (22-29); Chloride 102 mmol/L (96-108); Creatinine Clr Calc Pharmacy 122.4; Estimated Glomerular Filt Rate > 60; Glucose Random 168 mg/dL (60-115); Potassium 4.7 mmol/L (3.3-5.1); Sodium 139 mmol/L (135-145)
[2023-04-12 06:05] VITALS: BP 143/76; PULSE 62; RESP 20
== END 2023-04-12 06:16 | disposition home or self-care (01) ==
PROVIDERS: Emergency Provider Internal Medicine
DX: I83.891 Varicose veins of right lower extremity with other complications (principal); M79.604 Pain in right leg; E66.01 Morbid (severe) obesity due to excess calories; Z68.43 Body mass index [BMI] 50.0-59.9, adult
CPT/HCPCS: 36415; 80048; 85025; 85610; 99283; 99284

== ENCOUNTER 2023-11-20 01:45 | Inpatient (IN) | payer OTHER, SELFPAY ==
[2023-11-20] VITALS (19 sets, daily range): BP systolic 115–161; BP diastolic 51–86; PULSE 65–83; RESP 17–22; TEMP 36.2–37.2; O2SAT 86–95; BMI 51.8; BMI 51.9
--- NOTE | 2023-11-20 | ECG_ITS ---
Test Reason : DYSPENA Blood Pressure : / mmHG Vent. Rate : 068 BPM Atrial Rate : 068 BPM P-R Int : 180 ms QRS Dur : 100 ms QT Int : 422 ms P-R-T Axes : 053 069 055 degrees QTc Int : 448 ms Sinus rhythm with Premature atrial complexes Septal infarct , age undetermined Abnormal ECG When compared with ECG of 24-MAY-2021 18:08, No significant changes seen Referred By: Generic ED Physician Electronically Signed By:SHANT PARK
--- NOTE | ~2023-11-20 | XR_ITS ---
EXAMINATION: XR CHEST CLINICAL INFORMATION: Cough, shortness of breath COMPARISON: 05/29/2021 TECHNIQUE: 2 views of the chest were obtained. FINDINGS: Lung volumes are symmetric. No focal consolidation is seen. No evidence of pneumothorax or pleural effusion. There is mild prominence of the central vasculature and stranding interstitium. Cardiac silhouette appears near the upper limits of normal in size. No acute osseous findings are seen. XR/XR chest 2V IMPRESSION: No focal consolidation. Mild prominence of the central vasculature and interstitium may reflect a degree of congestion.
[2023-11-20 02:19] LABS: Basophils Percent Auto 0.1 % (0-2); Eosinophils Absolute Auto 0.1 X10*3/uL (0.0-0.4); Eosinophils Percent Auto 1.6 % (0-4); Hematocrit 37.6 % (42.0-52.0); Hemoglobin 12.9 g/dl (14.0-18.0); Imm Gran Abs Auto 0.02 X10*3/uL (0.00-0.03); Imm Gran Pct Auto 0.3 % (0.0-0.4); Lymphocytes Absolute Auto 1.5 X10*3/uL (1.2-4.9); Lymphocytes Percent Auto 22.2 % (20-40); MANUAL DIFF FLAG NO; Mean Corpuscular HGB Conc 34.3 g/dl (31.0-36.0); Mean Corpuscular Hemoglobin 32.6 pg (27.0-33.0); Mean Corpuscular Volume 94.9 fL (80.0-98.0); Monocytes Absolute Auto 0.9 X10*3/uL (0.1-1.2); Monocytes Percent Auto 12.2 % (2-11); Neutrophils Absolute Auto 4.4 x10*3/uL (2.0-8.3); Neutrophils Percent Auto 63.6 % (45-73); Platelet Count 145 X10*3/uL (160-400); Red Blood Count 3.96 X10*6/uL (4.60-5.80); Red Cell Distribution Width 12.6 % (11.0-16.0)
--- NOTE | 2023-11-20 02:20 | PC.NURSE ---
pt brought from ambulated with steady gait. pt reporting cough x sunday, sob worse today. pt denies hx copd/asthma/chf, denies smoking. lung sounds wheezing throughout. sats 88-91% on RA. Dr. Riley notified, recommended assessment for breathing tx. MD at bedside now.
--- NOTE | 2023-11-20 02:22 | MHC.EDTECH ---
PATIENT EKG TAKEN AND WAS READ BY PROVIDER ,BLOOD DRAWN INCLUDING FLU AND COVID SWAB COLLECTED AND SENT TO LAB ,THIS PCT OFFER PATIENT TO SIT IN W/C ,PATIENT REFUSED SAID HE PREFER TO WALK .
--- NOTE | 2023-11-20 02:23 | ED_ITS ---
HPI - General Adult General Chief complaint: Upper Respiratory Symptoms Stated complaint: SOB Time Seen by Provider: 11/20/23 02:19 History of Present Illness HPI narrative: The patient is a 58-year-old male who says that he has had significant coughing for about 4 days. This afternoon he was setting up a bounce house and after that he started to feel an increasing sense of shortness of breath. Ultimately he came to the emergency room because he was feeling so short of breath. He also felt that he was wheezing. He does not have a history of asthma. He does not have a history of heart disease. He does not have a history of smoking. He does not have a history of DVTs. No fever, sweats, chills. Related Data Home Medications ?Medication ?Instructions ?Recorded ?Confirmed allopurinol 100 mg tablet 2 tab PO DAILY 05/24/21 05/29/21 Previous Rx's ?Medication ?Instructions ?Recorded prednisone 10 mg tablet See Rx Instructions .Route 06/09/21 .COMPLEX #21 tabs acetaminophen 500 mg tablet 1,000 mg (2 x 500 mg) PO QID PRN 03/26/22 pain #30 tabs cephalexin 500 mg tablet 500 mg PO QID 7 days #28 tabs 03/26/22 naproxen 500 mg tablet (Naprosyn) 500 mg PO BID PRN pain #14 tabs 03/26/22 oxycodone 5 mg tablet 5 mg PO Q6H PRN pain #14 tabs 03/26/22 prednisone 20 mg tablet 60 mg (3 x 20 mg) PO DAILY 3 days 03/26/22 #9 tabs oxycodone 5 mg tablet 5 mg PO Q6H PRN pain #10 tabs 06/14/22 prednisone 20 mg tablet 40 mg (2 x 20 mg) PO DAILY #10 tabs 06/14/22 indomethacin 50 mg capsule 50 mg PO Q8H #30 caps 07/18/22 oxycodone 5 mg tablet 5 mg PO Q6H PRN pain #14 tabs 07/18/22 prednisone 20 mg tablet 40 mg (2 x 20 mg) PO DAILY 07/18/22 inflammation 5 days #10 tabs cephalexin 500 mg capsule 500 mg PO BID #20 caps 03/28/23 doxycycline hyclate 100 mg capsule 100 mg PO DAILY #20 caps 10/04/23 tramadol 50 mg tablet 50 mg PO BID PRN pain #7 tabs 03/28/23 Allergies Allergy/AdvReac Type Severity Reaction Status Date / Time No Known Allergies Allergy Verified 11/20/23 01:54 Review of Systems 2 Review of Systems: Yes all other systems are reviewed and are negative [facility] Past Medical History Medical History Arthritis Hyperlipidemia Gout Surgical History H/O hernia repair Family History Family History Other No significant family history Social History Social History Household Members: Other Housing: Condominium Do you presently have visiting nurse or other home services: No Alcohol intake: never Patient Tobacco Use Status: Never used Tobacco Smoked in Last 30 Days: No Use of substances other than those prescribed or required for medical reasons: No Advance Directives: Yes Advance Directives on File: Yes Advance Directives Date on File: 06/10/21 Do you have a plan to hurt others: No Plan service: Yes Current occupational status: employed Physical Exam ED Vital Signs: Vital Signs - 24 hr 11/20/23 01:47 11/20/23 02:20 11/20/23 02:40 Temperature 98 F Pulse Rate 77 78 Respiratory Rate 22 H 22 H Blood Pressure 161/86 H Pulse Oximetry 91 L 91 L Oxygen Delivery Method Room Air Room Air Oxygen Flow Rate 11/20/23 03:30 11/20/23 04:16 11/20/23 04:18 Temperature Pulse Rate 73 76 77 Respiratory Rate 20 22 H 22 H Blood Pressure Pulse Oximetry 87 L Oxygen Delivery Method Room Air Oxygen Flow Rate 11/20/23 05:30 11/20/23 05:30 11/20/23 05:34 Temperature 98.4 F Pulse Rate 70 Respiratory Rate 20 Blood Pressure 115/51 L Pulse Oximetry 86 L 92 93 Oxygen Delivery Method Room Air Nasal Cannula Nasal Cannula Oxygen Flow Rate 2 2 BMI result Body Mass Index 51.8 Const Other: Patient is awake, alert, pleasant, cooperative. He has an obese male who does not appear visibly short of breath. He was coughing fairly frequently. HENMT Other: Face is symmetrical. Mucous membranes moist. Eyes Other: Pupils are round equal, conjunctivae clear Neck Neck: Yes no JVD Resp Other: The patient has inspiratory and expiratory wheezes bilaterally. Cardio Rate: regular rate Rhythm: regular rhythm Heart sounds: S1 normal heart sound present and S2 normal heart sound present GI Other: Abdomen is soft and nontender Skin Other: Skin is pale and dry Neuro Other: The patient is awake, alert, pleasant, cooperative. Mental status is normal. Cranial nerves are grossly intact. He moves his extremities grossly normally. Extrem Other: The patient has large, thick calves but there is no asymmetry or tenderness or edema. Medications Administered Generic Name Dose Route Start Last Admin Trade Name Freq PRN Reason Stop Dose Admin Azithromycin 500 mg/ Sodium 250 mls @ 125 mls/hr 11/20/23 05:43 11/20/23 06:11 Chloride IV 11/20/23 07:42 125 mls/hr ONCE ONE Administration Discontinued Medications Generic Name Dose Route Start Last Admin Trade Name Freq PRN Reason Stop Dose Admin Albuterol Sulfate 2.5 mg 11/20/23 03:22 11/20/23 03:30 Albuterol Sulfate (0.083%) 2.5 Mg/3 Ml Vial.Neb INHALE 11/20/23 03:23 2.5 mg ONCE ONE Administration Albuterol/Ipratropium 3 ml 11/20/23 02:30 11/20/23 02:39 Albuterol/Iprat 2.5/0.5mg 3 Ml Ampul.Neb INHALE 11/20/23 02:31 3 ml ONCE ONE Administration Benzonatate 200 mg 11/20/23 04:56 11/20/23 05:06 Benzonatate 100 Mg Capsule PO 11/20/23 04:57 200 mg ONCE ONE Administration Albuterol Sulfate 2.5 mg/ 0 mg 11/20/23 04:08 11/20/23 04:17 Albuterol/Ipratropium 3 ml INHALE 11/20/23 04:09 1 dose ONCE ONE Administration Magnesium Sulfate 2 gm in 50 mls @ 25 mls/hr 11/20/23 04:33 11/20/23 06:10 Magnesium Sulfate/H2o IV 11/20/23 06:32 Infused ONCE ONE Infusion Methylprednisolone Sodium Succinate 80 mg 11/20/23 04:33 11/20/23 04:38 Methylprednisolone Sod Succ 125 Mg/2 Ml Vial IVPUSH 11/20/23 04:34 80 mg ONCE ONE Administration Medical Decision Making Medical Decision Making [facility] Narrative: The patient is a 58-year-old male with morbid obesity who presents with shortness of breath and wheezing on exam. He does not really have a history of asthma and he says he has not been a smoker. Nevertheless his shortness of breath and hypoxia seemed most likely related to an asthma or COPD like process. Chest x-ray showed no definite infiltrate. Troponin and BNP are normal. D- dimer is normal. His lactate is normal. Based on his workup I think it is unlikely that there is an alternate cause for his shortness of breath and his low oxygen saturations. The patient was given multiple bronchodilator updraft treatments. He was given IV methylprednisolone and IV magnesium. He was also given IV azithromycin. Lab Data 11/20/23 02:12 11/20/23 02:13 Labs: Lab Results 11/20/23 11/20/23 11/20/23 Range/Units 02:08 02:12 02:13 WBC 7.0 (4.8-10.8) X10*3/uL RBC 3.96 L (4.60-5.80) X10*6/uL Hgb 12.9 L (14.0-18.0) g/dl Hct 37.6 L (42.0-52.0) % MCV 94.9 (80.0-98.0) fL MCH 32.6 (27.0-33.0) pg MCHC 34.3 (31.0-36.0) g/dl RDW 12.6 (11.0-16.0) % Plt Count 145 L (160-400) X10*3/uL MPV 10.0 (9.4-12.4) fL Immature Gran % (Auto) 0.3 (0.0-0.4) % Neut % (Auto) 63.6 (45-73) % Lymph % (Auto) 22.2 (20-40) % [place] % (Auto) 12.2 H (2-11) % Eos % (Auto) 1.6 (0-4) % Baso % (Auto) 0.1 (0-2) % Lymph # (Auto) 1.5 (1.2-4.9) X10*3/uL [place] # (Auto) 0.9 (0.1-1.2) X10*3/uL Eos # (Auto) 0.1 (0.0-0.4) X10*3/uL Baso # (Auto) 0.0 (0.0-0.2) X10*3/uL Abs Immat Gran (auto) 0.02 (0.00-0.03) X10*3/uL Absolute Neuts (auto) 4.4 (2.0-8.3) x10*3/uL Absolute Nucleated RBC 0.000 (0.0-0.012) X10*3/uL Nucleated RBC % (auto) 0.0 (0.0-0.2) /100WBC D-Dimer High Sensitivty NG/ML Sodium 140 (135-145) mmol/L Potassium 3.6 (3.3-5.1) mmol/L Chloride 104 (96-108) mmol/L Carbon Dioxide 27 (22-29) mmol/L Anion Gap 13 (12-20) BUN 14 (9-16) mg/dL Creatinine 0.81 (0.5-1.4) mg/dL Estim Creat Clear Calc 149.1 Estimated GFR > 60 Random Glucose 113 (60-115) mg/dL Lactic Acid (0.5-2.0) mmol/L Calcium 8.5 (8.4-10.2) mg/dL Total Bilirubin 0.7 (0.0-1.0) mg/dL AST 26 (5-37) U/L ALT 24 (0-40) U/L Alkaline Phosphatase 93 (39-117) U/L Troponin I High Sens 4.6 (<3.5-35.0) ng/L C-Reactive Protein 5.40 H (< or = 0.50) mg/dL B-Natriuretic Peptide 35 (<100) pg/mL Total Protein 6.5 (6.5-8.0) g/dL Albumin 3.7 (3.5-5.0) g/dL COVID-19 (PAULIE) Negative (Negative) COVID-19 Clin Com See Note Influenza Type A (MAMADOU) Negative (Negative) Influenza Type B (MAMADOU) Negative (Negative) Influenza A & B Note See Note 11/20/23 Range/Units 05:21 WBC (4.8-10.8) X10*3/uL RBC (4.60-5.80) X10*6/uL Hgb (14.0-18.0) g/dl Hct (42.0-52.0) % MCV (80.0-98.0) fL MCH (27.0-33.0) pg MCHC (31.0-36.0) g/dl RDW (11.0-16.0) % Plt Count (160-400) X10*3/uL MPV (9.4-12.4) fL Immature Gran % (Auto) (0.0-0.4) % Neut % (Auto) (45-73) % Lymph % (Auto) (20-40) % [place] % (Auto) (2-11) % Eos % (Auto) (0-4) % Baso % (Auto) (0-2) % Lymph # (Auto) (1.2-4.9) X10*3/uL [place] # (Auto) (0.1-1.2) X10*3/uL Eos # (Auto) (0.0-0.4) X10*3/uL Baso # (Auto) (0.0-0.2) X10*3/uL Abs Immat Gran (auto) (0.00-0.03) X10*3/uL Absolute Neuts (auto) (2.0-8.3) x10*3/uL Absolute Nucleated RBC (0.0-0.012) X10*3/uL Nucleated RBC % (auto) (0.0-0.2) /100WBC D-Dimer High Sensitivty 212 NG/ML Sodium (135-145) mmol/L Potassium (3.3-5.1) mmol/L Chloride (96-108) mmol/L Carbon Dioxide (22-29) mmol/L Anion Gap (12-20) BUN (9-16) mg/dL Creatinine (0.5-1.4) mg/dL Estim Creat Clear Calc Estimated GFR Random Glucose (60-115) mg/dL Lactic Acid 1.5 (0.5-2.0) mmol/L Calcium (8.4-10.2) mg/dL Total Bilirubin (0.0-1.0) mg/dL AST (5-37) U/L ALT (0-40) U/L Alkaline Phosphatase (39-117) U/L Troponin I High Sens (<3.5-35.0) ng/L C-Reactive Protein (< or = 0.50) mg/dL B-Natriuretic Peptide (<100) pg/mL Total Protein (6.5-8.0) g/dL Albumin (3.5-5.0) g/dL COVID-19 (PAULIE) (Negative) COVID-19 Clin Com Influenza Type A (MAMADOU) (Negative) Influenza Type B (MAMADOU) (Negative) Influenza A & B Note Independent Interpretation I performed an independent interpretation of an: EKG Interpretation: EKG at 01:59 shows sinus rhythm with premature atrial complexes at 68 beats per minute. No definite acute ischemic changes. Critical Care Time Critical Care Time Critical Care Time: Yes Total Critical Care Time: 35 Attestation: The patient was critically ill with a high probability of imminent or life- threatening deterioration. ?I spent greater than 30 minutes of discontinuous time evaluating the patient, delivering critical care at the bedside, discussing evaluating data with consultants. ?Critical care time does not include time spent performing separately billable procedures or teaching. ?Time spent performing critical care with 35 minutes. Discharge Plan Discharge Clinical Impression: Acute asthma, Hypoxia Patient Disposition: Admitted As Inpatient Print Language: Austrian
[2023-11-20 02:32] LABS: COVID-19 Test Negative (Negative); IDNOW Serial# 08D9AD1C; IDNOW Serial# 152EDE1D; Influenza A Negative (Negative); Influenza B2 Negative (Negative)
[2023-11-20 02:39] LABS: Alanine Aminotransferase 24 U/L (0-40); Albumin Level 3.7 g/dL (3.5-5.0); Alkaline Phosphatase 93 U/L (39-117); Anion Gap 13 (12-20); Aspartate Amino Transferase 26 U/L (5-37); Bilirubin Total 0.7 mg/dL (0.0-1.0); Blood Urea Nitrogen 14 mg/dL (9-16); Calcium 8.5 mg/dL (8.4-10.2); Carbon Dioxide 27 mmol/L (22-29); Chloride 104 mmol/L (96-108); Creatinine Clr Calc Pharmacy 149.1; Estimated Glomerular Filt Rate > 60; Glucose Random 113 mg/dL (60-115); Potassium 3.6 mmol/L (3.3-5.1); Sodium 140 mmol/L (135-145); Total Protein 6.5 g/dL (6.5-8.0)
[2023-11-20] MEDS: Albuterol/Iprat 2.5/0.5MG 3 ML AMPUL.NEB INHALE ×5 (02:39→19:21)
[2023-11-20 02:42] LABS: Troponin-I High Sensitivity 4.6 ng/L (<3.5-35.0)
--- NOTE | 2023-11-20 03:00 | PC.NURSE ---
Addendum entered by Vinnie Lu 11/20/23 03:33: 0306 - RT notified per Dr. Riley verbal order for another breathing tx. 0330 - RT at bedside for breathing tx. Original Note: wheezing improved and pt verbalizes breathing tx improved sx however sats remain 91-92% on RA. Dr. Riley notified.
[2023-11-20 03:11] LABS: B Type Natriuretic Peptide 35 pg/mL (<100)
[2023-11-20] MEDS: Albuterol Sulfate (0.083%) 2.5 MG/3 ML VIAL.NEB INHALE (03:30)
--- NOTE | 2023-11-20 04:15 | PC.NURSE ---
lung sounds remain wheezing bilat throughout, dry cough, sats 87-89% on RA. Dr. Riley notified. new orders for breathing tx and IV placement for iv steroids.
[2023-11-20] MEDS: Albuterol Sulfate 2.5 MG, Albuterol/Iprat 2.5/0.5MG 3 ML 3 ML INHALE (04:17)
[2023-11-20] MEDS: Magnesium Sulfate/H2O 2 GM/50 ML PIGGYBACK IV (04:38)
[2023-11-20] MEDS: methylPREDNISolone Sod Succ 125 MG/2 ML VIAL 80 MG IVPUSH (04:38)
--- NOTE | 2023-11-20 04:51 | PC.NURSE ---
pt medicated per aug and received breathing tx. persistent cough now. Dr. Riley notified. lung sounds remain wheezing. sats 88% on RA. recommended for tesslon pearls for cough. Dr. Riley at bedside for assessment now.
[2023-11-20] MEDS: Benzonatate 100 MG CAPSULE 200 MG PO (05:06)
--- NOTE | 2023-11-20 05:32 | PC.NURSE ---
Addendum entered by Vinnie Lu 11/20/23 05:33: cough improved. Original Note: pt placed on 2L NC per Dr. Riley order; sats 86-89% on RA, 92-93% on 2L.
[2023-11-20 05:36] LABS: Lactic Acid 1.5 mmol/L (0.5-2.0)
[2023-11-20 05:39] LABS: D Dimer High Sensitivity 212 NG/ML
[2023-11-20] MEDS: Azithromycin 500 MG in 0.9 % Sodium Chloride 250 ML 125 MG IV (06:11)
--- NOTE | 2023-11-20 06:26 | PC.NURSE ---
pt medicated per mar, denies pain, resting comfortably in bed. pt educated on plan of care verbalizes understanding and agreement. cough resolved, resp even and unlabored, sats remain 93% on RA. call jimenez within reach.
--- NOTE | 2023-11-20 07:00 | CA_ITS ---
Transthoracic Echocardiogram Patient (Last, First, Middle): Primitivo Reyes, Gender: Male Date of : 1965 Age: 58 Procedure Date: 11/20/2023 Procedure Type: Transthoracic Echocardiogram Location: ER Height: 175.26 cm Weight: 158.76 kg BSA: 2.62 m2 Heart Rate: bpm BP: 119 / 54 mmHg Triage Assistant: TO Referring MD: Josemanuel Rashid MD Symptoms: ?chf Study Quality: Technically Difficult/contrast ECG Rhythm: Sinus Conclusions: - The left ventricular systolic function is normal. The calculated ejection fraction is 70% by biplane method. - Moderately increased right ventricular cavity size. - No obvious valvular pathology seen on this study. Findings Procedure Information Contrast agent, definity, is being given per protocol without apparent complications. Left Ventricle Normal left ventricular cavity size. There is mildly increased left ventricular wall thickness. The left ventricular systolic function is normal. The calculated ejection fraction is 70% by biplane method. There is no evidence of regional wall motion abnormalities. Diastolic function is normal for age. Right Ventricle Moderately increased right ventricular cavity size. There is normal right ventricular systolic function. Atria The left atrium is mildly dilated. The right atrium is normal in size. Aortic Valve There is a normal trileaflet aortic valve. There is mild calcification of the aortic valve. There is no aortic valve stenosis. There is no aortic valve regurgitation. Mitral Valve The mitral valve appears normal. There is no mitral valve regurgitation. There is no mitral valve stenosis. Pulmonic Valve The pulmonic valve is likely normal. Tricuspid Valve There is trace tricuspid valve regurgitation. There is no evidence of pulmonary hypertension. Great Vessels The asc aorta is normal in size. Venous The inferior vena cava is mildly dilated and collapses greater than 50% with inspiration. Pericardium/Pleural There is no evidence of pericardial effusion. Prior Study Comparison No prior study available for comparison. Recommendations, Care & Conclusions No obvious valvular pathology seen on this study. Measurements 2D Linear Measurements IVSd: 1.07 0.6-0.9/0.6-1.0 cm LVIDd: 5.68 3.9-5.3/4.2-5.9 cm LVIDd Index: 2.17 2.4-3.2/2.2-3.1 cm/m2 LVIDs: 3.45 2.0-3.6 cm LVPWd: 1.08 0.7-1.1 cm LA Diam: 4.10 2.7-3.8/3.0-4.0 cm LAIDs Index: 1.56 1.5-2.3 cm/m2 LV Mass: 308.67 67-162/88-224 g LV Mass Index: 117.81 43-95/49-115 g/m2 LVOT Diam: 2.30 3.0+(-)1.3 cm 2D Systolic Function EF 4C: 71.60 >55% EF 2C: 69.80 >55% EF BiP: 69.80 >55% Mitral Valve MV VTI: 0.24 MV Pk Yaya: 1.11 MV Mn Yaya: 0.71 MV Pk Grad: 5.00 MV Mn Grad: 3.00 MV Pk E: 0.78 MV PK A: 0.52 MV Decel Time: 242.00 E/A: 1.50 E'Lateral: 13.20 E'Medial: 7.62 E/E' Med: 10.20 E/E' Lat: 5.90 PHT: 71.00 MVA PHT: 3.10 MVA Continuity: 4.47 Decel Norman: 3.22 Aortic Valve AoV Pk Yaya: 2.13 AoV Mn Yaya: 1.34 AoV VTI: 0.38 AoV Pk Grad: 18.00 Aov Mn Grad: 9.00 DENNYS Cont.VTI: 2.88 LVOT LVOT Pk Yaya: 1.38 LVOT Mn Yaya: 0.89 LVOT VTI: 0.26 LVOT Pk Grad: 8.00 LVOT Mn Grad: 4.00 LVOT Diam: 2.30 LVOT Area: 4.15 Diastolic Function MV Pk E: 0.78 MV Pk A: 0.52 E/A: 1.50 E'Medial: 7.62 E/E' Med: 10.20 E' Laterial: 13.20 E/E' Lat: 5.90 Right Ventricle TAPSE (mm): 31.30 TVS' Yaya: 17.10 Tricuspid Valve RA Press: 8.00 Great Vessels Aorta Sinus of Valsalva: 3.91 2.0-3.[address] [place]: 3.12 1.7-3.4 cm Ao Asc: 3.60 2.1-3.4 cm Updated in Other Vendor System with Status of Final Castilol Love MD electronically signed on 11/20/2023 12:25:36 PM with status of Final
--- NOTE | 2023-11-20 07:41 | P.HPHOSP_ITS ---
History of Present Illness Date of Service: 11/20/23 Chief Complaint: sob, cough 58M PMH morbid obesity, gout, hyperlipidemia presented with cough and shortness of breath. Patient states that cough began 2 days prior to presentation, is productive with yellow sputum. Does not have any fevers or chills. Does not have any sick contacts. On day prior to presentation started having worsening shortness of breath. Positive orthopnea, worse on exertion, stable lower extremity edema, denies weight gain. Denies chest pain. In ED noted to be hypoxic, 87 on room air requiring 2 L. chest x-ray without focal consolidation, mild prominence of the central vasculature and interstitium. Review of Systems 2 Review of Systems: Yes all other systems are reviewed and are negative [facility] Medical History Arthritis Hyperlipidemia Gout Family History Other No significant family history Surgical History H/O hernia repair Social History Household Members: Other Housing: Condominium Do you presently have visiting nurse or other home services: No Alcohol intake: never Patient Tobacco Use Status: Never used Tobacco Smoked in Last 30 Days: No Use of substances other than those prescribed or required for medical reasons: No Advance Directives: Yes Advance Directives on File: Yes Advance Directives Date on File: 06/10/21 Do you have a plan to hurt others: No Plan service: Yes Current occupational status: employed Meds Allergies Allergy/AdvReac Type Severity Reaction Status Date / Time No Known Allergies Allergy Verified 11/20/23 01:54 Active Medications: Current Medications Albuterol/Ipratropium (Albuterol/Iprat 2.5/0.5mg 3 Ml Ampul.Neb) 3 ml INHALE RQ4H WHILE AWAKE YOAN Furosemide (Furosemide 40 Mg/4 Ml Vial) 40 mg IVPUSH BID@0900,1800 YOAN; Protocol Azithromycin 500 mg/ Sodium (Chloride) 250 mls @ 125 mls/hr IV ONCE ONE Stop: 11/20/23 07:42 Last Admin: 11/20/23 06:11 Dose: 125 mls/hr Methylprednisolone Sodium Succinate (Methylprednisolone Sod Succ 40 Mg/Ml Vial) 40 mg IVPUSH Q12H YOAN Home Medications ?Medication ?Instructions ?Recorded ?Confirmed ?Last Taken ?Type atorvastatin 80 mg tablet 80 mg PO DAILY 11/20/23 Unknown History meloxicam 15 mg tablet 15 mg PO DAILY 11/20/23 Unknown History Physical Exam 2 Vital Signs and Narrative: Vital Signs: Last Vital Signs Temp 98.4 F 11/20/23 05:34 Pulse 70 11/20/23 05:34 Resp 20 11/20/23 05:34 BP 115/51 L 11/20/23 05:34 Pulse Ox 93 11/20/23 05:34 O2 Del Method Nasal Cannula 11/20/23 05:34 O2 Flow Rate 2 11/20/23 05:34 BMI result Body Mass Index 51.8 General: AO X 3, no acute distress Resp: wheezing bilateral, no accessory muscles used CVS: S1,S2,RRR, 2 + bilateral edema GI: soft, non tender, non distended Neuro: motor grossly intact, alert Psych: appropriate affect, appropriate insight Results Labs 11/20/23 02:12 11/20/23 02:13 Labs: Laboratory Results - last 24 hr 11/20/23 11/20/23 11/20/23 02:08 02:12 02:13 MCV 94.9 MCH 32.6 MCHC 34.3 RDW 12.6 Plt Count 145 L MPV 10.0 Immature Gran % (Auto) 0.3 Neut % (Auto) 63.6 Lymph % (Auto) 22.2 Kimball % (Auto) 12.2 H Eos % (Auto) 1.6 Baso % (Auto) 0.1 Lymph # (Auto) 1.5 Kimball # (Auto) 0.9 Eos # (Auto) 0.1 Baso # (Auto) 0.0 Abs Immat Gran (auto) 0.02 Absolute Neuts (auto) 4.4 Absolute Nucleated RBC 0.000 Nucleated RBC % (auto) 0.0 D-Dimer High Sensitivty Anion Gap 13 Estim Creat Clear Calc 149.1 Estimated GFR > 60 Random Glucose 113 Lactic Acid Calcium 8.5 Total Bilirubin 0.7 AST 26 ALT 24 Alkaline Phosphatase 93 Troponin I High Sens 4.6 C-Reactive Protein 5.40 H B-Natriuretic Peptide 35 Total Protein 6.5 Albumin 3.7 COVID-19 (PAULIE) Negative COVID-19 Clin Com See Note Influenza Type A (MAMADOU) Negative Influenza Type B (MAMADOU) Negative Influenza A & B Note See Note 11/20/23 05:21 MCV MCH MCHC RDW Plt Count MPV Immature Gran % (Auto) Neut % (Auto) Lymph % (Auto) Kimball % (Auto) Eos % (Auto) Baso % (Auto) Lymph # (Auto) Kimball # (Auto) Eos # (Auto) Baso # (Auto) Abs Immat Gran (auto) Absolute Neuts (auto) Absolute Nucleated RBC Nucleated RBC % (auto) D-Dimer High Sensitivty 212 Anion Gap Estim Creat Clear Calc Estimated GFR Random Glucose Lactic Acid 1.5 Calcium Total Bilirubin AST ALT Alkaline Phosphatase Troponin I High Sens C-Reactive Protein B-Natriuretic Peptide Total Protein Albumin COVID-19 (PAULIE) COVID-19 Clin Com Influenza Type A (MAMADOU) Influenza Type B (MAMADOU) Influenza A & B Note Imaging Radiologist's Impressions: Impressions Chest X-Ray 11/20/23 02:37 IMPRESSION: No focal consolidation. Mild prominence of the central vasculature and interstitium may reflect a degree of congestion. Assessment and Plan (1) Hypoxia: Status: Acute Plan 58M PMH morbid obesity, gout, hyperlipidemia presented with cough and shortness of breath Acute hypoxic respiratory failure secondary to mild intermittent asthma with acute decompensation Possible additional component of acute unspecified CHF IV steroids, DuoNebs, azithromycin, check respiratory viral panel IV Lasix, check echo Wean O2 as tolerated Morbid obesity Weight loss recommended, check A1c, check VBG to rule out obesity hypoventilation DVT prophylaxis with Lovenox Full Code Patient with significant reactive airway causing hypoxia requiring O2 supplementation and close monitoring at risk for further decompensation due to morbid obesity, therefore, expected require at least 2 midnights inpatient Quality Stroke Does the patient have a stroke diagnosis?: No VTE Prior VTE?: No VTE Risk Level:: Medical - moderate - high VTE Device Contraindication: Treatment Not Indicated VTE Drug Contraindication: N/A - Med Ordered
--- NOTE | 2023-11-20 07:41 | PC.NURSE ---
this RN resumed care of pt at 0700. a&ox4. vss and up to date. pt remains on 2L via NC - resting at 94%. pt verbalizes no home O2 use baseline. pt denies any respiratory sx at this time. no sob/wob noted. respirations even and unlabored. pt resting comfortably w/ lights dimmed in no apparent distress. pt spoke w/ admitting provider in regards to plan of care. pt pending admission at this time. plan of care ongoing. call jimenez placed within reach.
--- NOTE | 2023-11-20 08:17 | PHA.MEDREC ---
Pharmacy Consult ? Medication Reconciliation Pharmacy has completed the medication reconciliation.
--- NOTE | 2023-11-20 08:32 | PC.NURSE ---
pt received breathing treatment via RT. pt having echo completed at this time.
[2023-11-20] MEDS: Enoxaparin Sodium 40 MG/0.4 ML SYRINGE SUBCUT (09:12)
[2023-11-20] MEDS: methylPREDNISolone Sod Succ 40 MG/ML VIAL IVPUSH ×2 (09:13→20:16)
[2023-11-20] MEDS: Atorvastatin Calcium 80 MG TABLET PO (09:13)
[2023-11-20] MEDS: Furosemide 40 MG/4 ML VIAL IVPUSH (09:13)
[2023-11-20 09:20] LABS: VBG Base Excess 1.2 mmol/L; VBG HCO3 26 mmol/L (22-26); VBG pCO2 44 mmHg; VBG pH 7.38 (7.32-7.43); VBG pO2 74 mmHg
[2023-11-20 09:21] LABS: Venous Blood Gas Refer to POC result
[2023-11-20 11:50] LABS: Estimated Average Glucose 108 mg/dL; Hemoglobin A1c % 5.4 % (<6.0)
--- NOTE | 2023-11-20 11:57 | PC.NURSE ---
RT attempted to wean pt off of O2 - this RN found pt resting at 87% on 1L via NC. no sob/wob noted. pt now placed on 2L via NC - resting at 93%. pt continues to rest in no apparent distress. no sob/wob noted. respirations even and unlabored. pt waiting for bed assignment. provided w/ snacks per request. plan of care ongoing. call jimenez placed within reach.
[2023-11-20 12:45] LABS: Adenovirus PCR Not Detected (Not Detect.); Bordetella parapertussis PCR Not Detected (Not Detect.); Bordetella pertussis PCR Not Detected (Not Detect.); Chlamydia pneumoniae PCR Not Detected (Not Detect.); Coronavirus 229E PCR Not Detected (Not Detect.); Coronavirus HKU1 PCR Not Detected (Not Detect.); Coronavirus NL63 PCR Not Detected (Not Detect.); Coronavirus OC43 PCR Not Detected (Not Detect.); Human metapneumovirus PCR Detected (Not Detect.); Influenza A PCR Not Detected (Not Detect.); Influenza B PCR Not Detected (Not Detect.); Mycoplasma pneumoniae PCR Not Detected (Not Detect.); Parainfluenza 1 PCR Not Detected (Not Detect.); Parainfluenza 2 PCR Not Detected (Not Detect.); Parainfluenza 3 PCR Not Detected (Not Detect.); Parainfluenza 4 PCR Not Detected (Not Detect.); RSV PCR Not Detected (Not Detect.); Rhino/Enterovirus PCR Not Detected (Not Detect.)
--- NOTE | 2023-11-20 12:52 | PC.NURSE ---
pt noted to be 88% on 2L via NC while asleep. pt's O2 increased to 3L via NC - now resting at 91%. no sob/wob noted. respirations even and unlabored. resting comfortably/asleep. call jimenez placed within reach.
[2023-11-20 13:13] LABS: SARS-CoV-2 PCR Not Detected (Not Detect.)
--- NOTE | 2023-11-20 17:48 | PC.NURSE ---
vss and up to date. pt remains on 3L via NC - resting at 93%. no sob/wob noted. respirations even and unlabored. pt sitting upright/resting comfortably in no apparent distress. pt positioned upright to promote patent airway. pt waiting for bed assignment. call jimenez placed within reach.
--- NOTE | 2023-11-20 20:17 | PC.NURSE ---
Assumed care of pt at 1900. PT a/o VSS, denies pain. Lung sounds clear. This Rn Noted bilateral wounds on shins with brown?bandages.? pt reports they were? caused by walking into his trailer. wounds cleaned and bandaged.?Report complete. PT ready for transport --
[2023-11-21] VITALS (7 sets, daily range): BP systolic 141–155; BP diastolic 65–72; PULSE 55–71; RESP 12–20; TEMP 36.1–36.2; O2SAT 89–96
[2023-11-21] MEDS: 0.9 % Sodium Chloride Flush 3 ML SYRINGE IVFLUSH ×2 (00:08→07:38)
[2023-11-21 05:44] LABS: Hematocrit 41.5 % (42.0-52.0); Hemoglobin 13.7 g/dl (14.0-18.0); Mean Corpuscular Hemoglobin 32.1 pg (27.0-33.0); Mean Corpuscular Volume 97.2 fL (80.0-98.0); Platelet Count 181 X10*3/uL (160-400); Red Blood Count 4.27 X10*6/uL (4.60-5.80); Red Cell Distribution Width 12.6 % (11.0-16.0)
[2023-11-21 06:08] LABS: Anion Gap 11 (12-20); Blood Urea Nitrogen 13 mg/dL (9-16); Calcium 8.8 mg/dL (8.4-10.2); Carbon Dioxide 33 mmol/L (22-29); Chloride 102 mmol/L (96-108); Creatinine Clr Calc Pharmacy 143.9; Estimated Glomerular Filt Rate > 60; Glucose Fasting 169 mg/dL (60-99); Magnesium 2.3 mg/dL (1.6-2.6); Potassium 4.6 mmol/L (3.3-5.1); Sodium 141 mmol/L (135-145)
[2023-11-21] MEDS: methylPREDNISolone Sod Succ 40 MG/ML VIAL IVPUSH (07:37)
[2023-11-21] MEDS: Enoxaparin Sodium 40 MG/0.4 ML SYRINGE SUBCUT (07:37)
[2023-11-21] MEDS: Atorvastatin Calcium 80 MG TABLET PO (07:38)
[2023-11-21] MEDS: Azithromycin 500 MG TABLET PO (07:38)
--- NOTE | 2023-11-21 09:38 | MHC.CM.PN ---
pt lives with a roomate will not need services is independent his car in parking lot
--- NOTE | 2023-11-21 11:51 | PC.NURSE ---
Patient O2 91-90% on RA. Patient ambulated with nurse in hallway, O2 88-90% RA. Patient denies SOB or dizziness. Once sitting down O2 returned to 91%. Dr. Franco updated. No new orders at this time.
[2023-11-21] MEDS: Albuterol/Iprat 2.5/0.5MG 3 ML AMPUL.NEB INHALE (11:53)
--- NOTE | 2023-11-21 12:58 | PM.DS ---
DS: Providers Provider Date of Service: 11/21/23 Date of admission: 11/20/23 07:40 Primary care physician: Unknown Physician Consults: 11/20/23 21:51 Consult to Wound Care Routine Reason for consultation: abrasions to bilat legs DS: Diagnosis Discharge Diagnosis (1) Hypoxia: Status: Acute (2) Acute asthma: Status: Acute (3) Acute respiratory failure with hypoxia: Status: Acute DS: Summary Hospital Course Hospital Course: Admission note HPI 58M PMH morbid obesity, gout, hyperlipidemia presented with cough and shortness of breath. Patient states that cough began 2 days prior to presentation, is productive with yellow sputum. Does not have any fevers or chills. Does not have any sick contacts. On day prior to presentation started having worsening shortness of breath. Positive orthopnea, worse on exertion, stable lower extremity edema, denies weight gain. Denies chest pain. In ED noted to be hypoxic, 87 on room air requiring 2 L. chest x-ray without focal consolidation, mild prominence of the central vasculature and interstitium. Hospital course # Acute hypoxic respiratory failure secondary to mild intermittent asthma with acute decompensation treated with IV steroids, DuoNebs, azithromycin as viral panel was positive for MetaPneumovirus infection. Received a dose of Lasix as ECHO showed EF o 70% with normal function LV. Weaned off O2 and was able to ambulate on alvarado mainaining saturation around 90% with no reported dyspnea or shortness of breath. Regarding his Morbid obesity, weight loss was recommended. The patient had better than expected improvement in his condition as he was weaned off O2 supplement this morning and tolerated ambulation. Will not need 2 overnight hospital stay and will be discharged home. Discharge plan Continue supportive measures, stay hydrated Continue Prednisone Continue Albuterol as needed for wheezing Azithromycin for 3 more days Time Attestation Discharge Coordination Time (in mins): 38 Quality: Safe Use of Opioids Does Pt have an Active Cancer Diagnosis on the Problem List?: No Quality: Stroke Does the patient have a stroke diagnosis?: No Physical Exam Vital Signs: Vital Signs: Last Vital Signs Temp 97 F 11/21/23 07:35 Pulse 71 11/21/23 11:57 Resp 18 11/21/23 11:57 BP 155/72 H 11/21/23 07:35 Pulse Ox 91 L 11/21/23 11:53 O2 Del Method Room Air 11/21/23 11:53 O2 Flow Rate 2 11/21/23 10:40 BMI result Body Mass Index 51.9 Const: Other: Constitutional : Awake, interactive, not in distress Neck : Normal inspection, Supple Cardiovascular : RRR, no JVP, no lower extremity edema Respiratory : good bilateral air entry, no crackles, scattered wheezes Gastrointestinal: soft, lax, Normal bowel sounds, Non tender Skin : Warm, Dry Neurological : Alert & oriented x3, No focal deficit DS: Data Data Completed and Pending Labs on day of discharge: Laboratory Results - last 24 hr 11/20/23 11/21/23 08:27 05:29 WBC 13.0 H RBC 4.27 L Hgb 13.7 L Hct 41.5 L MCV 97.2 MCH 32.1 MCHC 33.0 RDW 12.6 Plt Count 181 MPV 10.0 Absolute Nucleated RBC 0.000 Nucleated RBC % (auto) 0.0 Sodium 141 Potassium 4.6 D Chloride 102 Carbon Dioxide 33 H Anion Gap 11 L BUN 13 Creatinine 0.84 Estim Creat Clear Calc 143.9 Estimated GFR > 60 Fasting Glucose 169 H Calcium 8.8 Magnesium 2.3 Respiratory Panel Staley See Note Adenovirus (Rapid PCR) Not Detected B.pert (TEM-PCR) Not Detected B.parapertussis DNA PCR Not Detected C. pneumoniae DNA (PCR) Not Detected Coronavirus OC43 (PCR) Not Detected Coronavirus HKU1 (PCR) Not Detected Coronavirus 229E (PCR) Not Detected Coronavirus NL63 (PCR) Not Detected Human Metapneumovir PCR Detected A Influenza A (RT-PCR) Not Detected Influenza B (RT-PCR) Not Detected M. pneumoniae (PCR) Not Detected Parainfluenza 1 (PCR) Not Detected Parainfluenza 2 (PCR) Not Detected Parainfluenza 3 (PCR) Not Detected Parainfluenza 4 (PCR) Not Detected RSV (PCR) Not Detected Entero/Rhino (PCR) Not Detected SARS-CoV-2 RNA (RT-PCR) Not Detected Preliminary micro results at discharge 11/20/23 05:21 Blood Culture - Preliminary Blood - Venous No growth after 24 hours. 11/20/23 05:21 Blood Culture - Preliminary Blood - Venous No growth after 24 hours. Imaging Chest x-ray: Radiologist's impression: ITS Impressions Chest X-Ray 11/20/23 02:37 IMPRESSION: No focal consolidation. Mild prominence of the central vasculature and interstitium may reflect a degree of congestion. Discharge Plan Discharge Anticipated Discharge Date/Time: 11/21/23 12:50 Patient Disposition: Home, Self-Care Discharge Diagnosis: Hypoxia secondary to Asthma exacerbation Referrals: Physician,Unknown J [Primary Care Provider] - 1 Week Discharge Medications: New prednisone 20 mg tablet 40 mg PO DAILY Qty: 8 0RF albuterol sulfate [ProAir HFA] 90 mcg/actuation HFA aerosol inhaler 2 puff inhalation Q6H PRN (Reason: shortness of breath or wheezing) Qty: 6.7 1RF azithromycin 250 mg tablet 250 mg PO DAILY 3 Days Qty: 3 0RF Rx Instructions: start on day 2 of therapy Continued atorvastatin 80 mg tablet 80 mg PO DAILY Discharge Orders: Discharge Order (Routine); Ordered 11/21/23 Ordered By: Yodit Franco Diet: Advance to usual diet Activity on Discharge: As tolerated Stand Alone Forms: Patient Portal Discharge page Print Language: Portuguese Care Plan Goals: Read below Health Concerns: Read below Plan of Treatment: Read below Assessment: You have Metapneumovirus infection causing asthma attack requiring treatment with steroids, nebulizers and antibiotics with good response. Continue supportive measures, stay hydrated Continue Prednisone Continue Albuterol as needed for wheezing Azithromycin for 3 more days
--- NOTE | 2023-11-21 13:29 | MHC.CM.PN ---
pt dc home self care
== END 2023-11-21 13:55 | disposition home or self-care (01) | DRG 202 ==
LOC: HO.ED 06:01 → HO.EDOVER 07:44 → HO.S3 19:35
PROVIDERS: Admitting Provider Internal Medicine; Emergency Provider Emergency Medicine; PCP Physician Assistant Medical; Visit Provider Student in an Organized Health Care Education/Training Program
DX: J45.21 Mild intermittent asthma with (acute) exacerbation (principal); J96.01 Acute respiratory failure with hypoxia; Z68.43 Body mass index [BMI] 50.0-59.9, adult; E66.2 Morbid (severe) obesity with alveolar hypoventilation; B97.81 Human metapneumovirus as the cause of diseases classified elsewhere; Z79.899 Other long term (current) drug therapy
CPT/HCPCS: 36415; 71046; 80048; 80053; 82803; 83036; 83605; 83735; 83880; 84484; 85025; 85027; 85379; 86140; 87040; 87502; 87633; 87635; 93005; 93306; 94640; 99285; J0456; J1650; J1940; J2919; J3475; Q9957

== ENCOUNTER → 2023-11-20 07:00 | Outpatient (BNV) | payer OTHER, SELFPAY | PROVIDERS: Admitting Provider Internal Medicine; Emergency Provider Emergency Medicine; Visit Provider Internal Medicine | DX: R94.31 Abnormal electrocardiogram [ECG] [EKG] (principal); I35.8 Other nonrheumatic aortic valve disorders | CPT/HCPCS: 93010; 93306 ==

== ENCOUNTER → 2023-11-20 07:40 | Outpatient (BNV) | payer OTHER, SELFPAY | PROVIDERS: Admitting Provider Internal Medicine; Emergency Provider Emergency Medicine; Visit Provider Internal Medicine | DX: J96.01 Acute respiratory failure with hypoxia (principal); J45.21 Mild intermittent asthma with (acute) exacerbation | CPT/HCPCS: 99223; 99239 ==

== ENCOUNTER 2024-05-27 00:21 | Emergency (ER) | payer OTHER, SELFPAY ==
--- NOTE | ~2024-05-27 | US_ITS ---
EXAMINATION: US TRIPLEX LOWER EXTREMITY, LEFT CLINICAL INFORMATION: Left lower extremity pain. COMPARISON: None available. TECHNIQUE: Color-flow triplex imaging with spectral analysis and compression Doppler were performed on the left lower extremity. FINDINGS: Respiratory variation, normal compression and augmented flow are noted throughout the left lower extremity. The visualized common femoral vein, superficial femoral vein, profunda femoral vein, popliteal vein and midcalf peroneal and posterior tibial venous segments show no evidence of deep venous thrombosis. There is no Ford's cyst. There are prominent groin lymph nodes. US/US venous duplex LE LT IMPRESSION: No evidence of deep venous thrombosis involving the left lower extremity. Electronically signed by: Breezy Jaramillo MD 05/27/2024 01:49 AM [facility]
--- NOTE | ~2024-05-27 | US_ITS ---
EXAMINATION: US arterial duplex LE LT CLINICAL INFORMATION: claudication TECHNIQUE: Real-time ultrasound and Doppler techniques (integrating B-mode 2-D vascular images, Doppler spectral analysis and color flow Doppler imaging) were utilized to interrogate the left lower extremity. COMPARISON: None FINDINGS: Common femoral artery: 127 cm/s, monophasic Profunda femoris artery: 56 cm/s, monophasic Superficial femoral artery (proximal): 202 cm/s, monophasic Superficial femoral artery (mid): 182 cm/s, monophasic Superficial femoral artery (distal): 130 cm/s, monophasic Popliteal artery: 152 cm/s, monophasic Posterior tibial artery: 107 cm/s, monophasic Dorsalis pedis artery: 92 cm/s, monophasic. The anterior tibial and peroneal arteries are not seen. Extensive distal lower extremity subcutaneous edema noted. US/US arterial duplex LE LT IMPRESSION: 1. Monophasic waveforms throughout the left lower extremity. 2. Moderate stenosis of the proximal superficial femoral artery. Electronically signed by: Mckenzie Coates DO 05/27/2024 12:55 PM [facility]
[2024-05-27 00:26] VITALS: BP 154/79; PULSE 84; RESP 20; TEMP 36.8; O2SAT 94; BMI 55.0
[2024-05-27 00:52] LABS: Hematocrit 38.9 % (42.0-52.0); Hemoglobin 13.2 g/dl (14.0-18.0); Mean Corpuscular HGB Conc 33.9 g/dl (31.0-36.0); Mean Corpuscular Hemoglobin 31.9 pg (27.0-33.0); Mean Platelet Volume 9.5 fL (9.4-12.4); Platelet Count 167 X10*3/uL (160-400); Red Blood Count 4.14 X10*6/uL (4.60-5.80); Red Cell Distribution Width 11.9 % (11.0-16.0); White Blood Count 8.8 X10*3/uL (4.8-10.8)
[2024-05-27 01:05] LABS: Alanine Aminotransferase 21 U/L (0-40); Albumin Level 3.7 g/dL (3.5-5.0); Alkaline Phosphatase 77 U/L (39-117); Anion Gap 12 (12-20); Aspartate Amino Transferase 21 U/L (5-37); Bilirubin Total 0.5 mg/dL (0.0-1.0); Blood Urea Nitrogen 16 mg/dL (9-16); Carbon Dioxide 28 mmol/L (22-29); Chloride 105 mmol/L (96-108); Estimated Glomerular Filt Rate > 60; Glucose Random 148 mg/dL (60-115); Potassium 3.6 mmol/L (3.3-5.1); Sodium 141 mmol/L (135-145); Total Protein 6.7 g/dL (6.5-8.0)
[2024-05-27 04:49] VITALS: BP 155/80; PULSE 75; RESP 16; TEMP 36.8; O2SAT 96
[2024-05-27 04:53] VITALS: BP 155/80; PULSE 76; RESP 16; TEMP 36.8; O2SAT 98
--- NOTE | 2024-05-27 06:38 | ED.LOWEXIN ---
HPI - Extremity Injury (Lower) General Chief Complaint: Extremity Injury, Lower Stated Complaint: blood clot? L leg Time Seen by Provider: 05/27/24 06:36 Source: patient Mode of arrival: ambulatory Limitations: no limitations History of Present Illness ED Provider: SHERIF JOHNSON PA-C HPI Narrative: 58 year old male with pmhx significant for gout, HDL, chronic venous insufficiency, varicose veins presents to the ED today for evaluation of left lower extremity pain x4 days. Reports onset of pain while seated in his recliner on Sunday. Pain originated in his calf and radiates up into his left knee/ thigh. Pain has been intermittent since onset and is primarily present only when ambulating. Describes it as a knot sensation. States the he is pretty active throughout the day. He has been taking Tylenol at home which temporarily relieves his discomfort. Denies blunt injury, trauma or falls. Denies recent travel or long car rides. Denies fever, chills, chest pain, SOB, N/V. Related Data Home Medications ?Medication ?Instructions ?Recorded ?Confirmed atorvastatin 80 mg tablet 80 mg PO DAILY 11/20/23 11/20/23 Previous Rx's ?Medication ?Instructions ?Recorded albuterol sulfate 90 mcg/actuation 2 puff inhalation Q6H PRN 11/21/23 aerosol inhaler (ProAir HFA) shortness of breath or wheezing #6.7 grams azithromycin 250 mg tablet 250 mg PO DAILY 3 days #3 tabs 11/21/23 prednisone 20 mg tablet 40 mg (2 x 20 mg) PO DAILY #8 tabs 11/21/23 aspirin 81 mg tablet,delayed 81 mg PO DAILY 30 days #30 tabs 05/27/24 release Allergies Allergy/AdvReac Type Severity Reaction Status Date / Time No Known Allergies Allergy Verified 05/27/24 00:27 Review of Systems Review of Systems: Constitutional: No fever, chills, fatigue, night sweats, weight changes ENT/Mouth: No ear pain, hearing loss, nasal congestion, sinus pain, rhinorrhea, sore throat Eyes: No eye pain, swelling, redness, vision changes, discharge Cardio: No chest pain, palpitations, SPENCER, orthopnea, peripheral edema Pulm: No SOB, cough, sputum, wheezing, dyspnea, hemoptysis GI: No nausea, vomiting, hematemesis, abdominal pain, diarrhea, constipation, hematochezia, melena : No irregular bleeding, dysuria, frequency, urgency, hesitancy, hematuria, flank pain, urinary flow changes, urinary incontinence or retention MSK: No back pain, neck pain, joint pain, myalgias, +left leg pain Skin: No lesions, rashes Neuro: No weakness, numbness, paresthesias, LOC, dizziness, headache Psych: No anxiety/panic, depression, SI/HI, AH/VH All other systems reviewed and are negative. [facility] Past Medical History Attestation statement: The following information was validated with the patient. Source: old records reviewed and nursing notes reviewed Medical History Arthritis Hyperlipidemia Gout Surgical History H/O hernia repair Family History Family History Other No significant family history Social History Social History Household Members: Friend(s) Housing: House Do you presently have visiting nurse or other home services: No Alcohol intake: never Patient Tobacco Use Status: Never used Tobacco Smoked in Last 30 Days: No Use of substances other than those prescribed or required for medical reasons: No Advance Directives: Yes Advance Directives on File: Yes Advance Directives Date on File: 06/10/21 Do you have a plan to hurt others: No Plan service: No Current occupational status: employed Physical Exam Vital Signs: Vital Signs: Last Vital Signs Temp 98.2 F 05/27/24 14:10 Pulse 68 05/27/24 14:10 Resp 16 05/27/24 14:10 BP 138/78 05/27/24 14:10 Pulse Ox 97 05/27/24 14:10 O2 Del Method Room Air 05/27/24 14:10 BMI result Body Mass Index 55.0 vital signs stable General: Well appearing, in no acute distress. Skin: pale, dry Head: Normocephalic, atraumatic. EENT: Hearing is intact b/l. Conjunctiva clear. PERRLA. Cardiac: Chest wall symmetric. RRR. no jvd. Lungs: Normal respiratory effort without accessory muscle use. CTA bilaterally Ext: + bilateral varicose veins, ttp along left calf/ posterior knee/ inner left thigh, no overlying warmth. no bleeding. 1+ pitting edema b/l. 2+dp/pt and popliteal pulses intact. cap refill <2 sec. Neuro: AOx3. Normal speech.Strength 5/5 intact throughout. Sensation intact to light touch. Ambulating with steady gait. Psych: Appropriate mood and affect. Responds appropriately to questions. Course Course Course Narrative: 1330 -- CBC without leukocytosis or left shift. Normocytic anemia, chronic when compared to priors. H&H around baseline and above transfusion threshold. chemistry without acute electrolyte abnormality requiring intervention. No ERICA. Ultrasound venous duplex of left lower extremity does not demonstrate DVT. No Ford cyst. Arterial ultrasound of left lower extremity showing moderate stenosis of the proximal superficial femoral artery. > patient's exam is consistent with claudication on exertion. he is not symptomatic at rest. no concern for acute arterial occlusion. > plan to start patient on 81mg aspirin daily. Advised to follow up with PCP and vascular - referral provided. Medications Administered Discontinued Medications Generic Name Dose Route Start Last Admin Trade Name Freq PRN Reason Stop Dose Admin Acetaminophen 650 mg 05/27/24 07:18 05/27/24 08:22 Acetaminophen 325 Mg Tablet PO 05/27/24 07:19 650 mg ONCE ONE Administration Medical Decision Making Medical Decision Making [facility] Narrative: 58 year old male with pmhx significant for gout, HDL, chronic venous insufficiency, varicose veins presents to the ED today for evaluation of left lower extremity pain x4 days. Hypertensive on arrival. Vitals otherwise wnl. He is nontoxic appearing and in NAD. On exam, bilateral varicose veins, ttp along left calf/ posterior knee/ inner left thigh, no overlying warmth. no bleeding. 1+ pitting edema b/l. 2+dp/pt and popliteal pulses intact. cap refill <2 seconds. sensation intact. Differential diagnosis includes varicose veins, chronic venous stasis, msk sprain/ strain, muscle spasm, DVT, ford's cyst, claudication, arthritis Presentation is not consistent with gout, pseudogout, nv compromise, threat to limb, compartment syndrome, arterial occlusion Labs and venous duplex ordered prior to my assumption of care. Will add on arterial scan of LLE. Tylenol given for pain control. Plan to re-evaluate. Differential Diagnosis Differential Diagnoses: The differential diagnosis associated with the presentation includes as above. Admission/Observation Not indicated Lab Data MDM Lab Attestation statement: I reviewed the patient's lab results. as above. 05/27/24 00:46 05/27/24 00:46 Labs: Lab Results 05/27/24 Range/Units 00:46 WBC 8.8 (4.8-10.8) X10*3/uL RBC 4.14 L (4.60-5.80) X10*6/uL Hgb 13.2 L (14.0-18.0) g/dl Hct 38.9 L (42.0-52.0) % MCV 94.0 (80.0-98.0) fL MCH 31.9 (27.0-33.0) pg MCHC 33.9 (31.0-36.0) g/dl RDW 11.9 (11.0-16.0) % Plt Count 167 (160-400) X10*3/uL MPV 9.5 (9.4-12.4) fL Absolute Nucleated RBC 0.000 (0.0-0.012) X10*3/uL Nucleated RBC % (auto) 0.0 (0.0-0.2) /100WBC Sodium 141 (135-145) mmol/L Potassium 3.6 D (3.3-5.1) mmol/L Chloride 105 (96-108) mmol/L Carbon Dioxide 28 (22-29) mmol/L Anion Gap 12 (12-20) BUN 16 (9-16) mg/dL Creatinine 0.87 (0.5-1.4) mg/dL Estim Creat Clear Calc 144.0 Estimated GFR > 60 Random Glucose 148 H (60-115) mg/dL Calcium 9.0 (8.4-10.2) mg/dL Total Bilirubin 0.5 (0.0-1.0) mg/dL AST 21 (5-37) U/L ALT 21 (0-40) U/L Alkaline Phosphatase 77 (39-117) U/L Total Protein 6.7 (6.5-8.0) g/dL Albumin 3.7 (3.5-5.0) g/dL Independent Interpretation I performed an independent interpretation of an: Ultrasound Interpretation: venous duplex LLE without cyst or clot arterial duplex LLE without arterial occlusion Radiology Impression Discussion of test interpretation with radiology: I have reviewed the radiologist's reading. Radiologist Impression: EXAMINATION: US TRIPLEX LOWER EXTREMITY, LEFT CLINICAL INFORMATION: Left lower extremity pain. COMPARISON: None available. TECHNIQUE: Color-flow triplex imaging with spectral analysis and compression Doppler were performed on the left lower extremity. FINDINGS: Respiratory variation, normal compression and augmented flow are noted throughout the left lower extremity. The visualized common femoral vein, superficial femoral vein, profunda femoral vein, popliteal vein and midcalf peroneal and posterior tibial venous segments show no evidence of deep venous thrombosis. There is no Ford's cyst. There are prominent groin lymph nodes. US/US venous duplex LE LT IMPRESSION: No evidence of deep venous thrombosis involving the left lower extremity. Electronically signed by: Breezy Jaramillo MD 05/27/2024 01:49 AM EST RP EXAMINATION: US arterial duplex LE LT CLINICAL INFORMATION: claudication TECHNIQUE: Real-time ultrasound and Doppler techniques (integrating B-mode 2-D vascular images, Doppler spectral analysis and color flow Doppler imaging) were utilized to interrogate the left lower extremity. COMPARISON: None FINDINGS: Common femoral artery: 127 cm/s, monophasic Profunda femoris artery: 56 cm/s, monophasic Superficial femoral artery (proximal): 202 cm/s, monophasic Superficial femoral artery (mid): 182 cm/s, monophasic Superficial femoral artery (distal): 130 cm/s, monophasic Popliteal artery: 152 cm/s, monophasic Posterior tibial artery: 107 cm/s, monophasic Dorsalis pedis artery: 92 cm/s, monophasic. The anterior tibial and peroneal arteries are not seen. Extensive distal lower extremity subcutaneous edema noted. US/US arterial duplex LE LT IMPRESSION: 1. Monophasic waveforms throughout the left lower extremity. 2. Moderate stenosis of the proximal superficial femoral artery. Electronically signed by: Mckenzie Coates DO 05/27/2024 12:55 PM EST RP Prescription Management I considered prescription management with: Pain Medication Chronic Conditions Patient?s care impacted by: Other (chronic venous insufficiency, varicose veins ) Social Determinants Patient?s care significantly limited by Social Determinants of Health including: Other Social Determinant of Health Critical Care Time Critical Care Time Critical Care Time: No Discharge Plan Discharge Clinical Impression: Left leg pain Patient Disposition: Home, Self-Care Instructions: Leg Pain (ED) Additional Instructions: Your blood work today is reassuring. The ultrasounds of your left leg do not demonstrate any cyst or clot. The ultrasound of the arteries within your left leg shows moderate amount of stenosis within the superficial femoral artery which may be causing you pain. I am starting you on aspirin 81mg daily. Take this as prescribed. I also wanted to your follow up with a vascular specialist. I have provided you with a referral. Call them to establish care, they will not call you. I recommend wearing compression stockings and elevating your legs whenever possible. I recommend a diet low in sodium (less than 2 grams per day). Monitor your weight daily. Continue Tylenol at home for pain/ discomfort. Follow up with your PCP this week. Return to the ED with new or worsening symptoms. In the case of an emergency call 911. Prescriptions: New aspirin 81 mg tablet,delayed release (DR/EC) 81 mg PO DAILY 30 Days Qty: 30 0RF No Action atorvastatin 80 mg tablet 80 mg PO DAILY prednisone 20 mg tablet 40 mg PO DAILY Qty: 8 0RF albuterol sulfate [ProAir HFA] 90 mcg/actuation HFA aerosol inhaler 2 puff inhalation Q6H PRN (Reason: shortness of breath or wheezing) Qty: 6.7 1RF azithromycin 250 mg tablet 250 mg PO DAILY 3 Days Qty: 3 0RF Rx Instructions: start on day 2 of therapy Referrals: [facility] [place] Vascular Services [Provider Group] - 3 days (claudication, moderate stenosis of L superficial femoral aa ) Interventions: ED Discharge Assessment Last Done: 05/27/24 14:10 Discharge Date/Time: 05/27/24 14:10 Print Language: Com[place]an
[2024-05-27] MEDS: Acetaminophen 325 MG TABLET 650 MG PO (08:22)
[2024-05-27 08:40] VITALS: BP 123/75; PULSE 73; RESP 18; TEMP 36.6; O2SAT 96
--- NOTE | 2024-05-27 13:06 | PC.NURSE ---
Pt. came out of room requesting to speak with RN. Upon speaking with pt., pt. became very angry, stating that he has been here for 12 hours and that it is disgusting that he is still here. Explained to pt. that we are waiting on the results of his duplex which are unfortunately taking some time to come back. Pt. verbalizes understanding of this but remains frustrated. Two cups of ice water brought to pt. per request. He has no further complaints at this time.
[2024-05-27 14:00] VITALS: BP 138/78; PULSE 68; RESP 16; TEMP 36.8; O2SAT 97
--- NOTE | 2024-05-27 14:06 | PC.NURSE ---
Went to d/c pt. Immediately upon entering room, pt. says that it's ridiculous that we are throwing him out and haven't even diagnosed him. Told pt. that I haven't even begun to go over his discharge instructions with him, which does contain vital information related to the provider's diagnosis and how the provider would like him to follow up based on our findings. This RN began to read and explain pt. his d/c instructions, to which pt. interrupted and stated I don't care and shoved his bedside table out of the way. Pt. then took discharge instructions, did not verbalize any kind of understanding or teach back information, then stormed out of room without saying a word.
[2024-05-27 14:10] VITALS: BP 138/78; PULSE 68; RESP 16; TEMP 36.8; O2SAT 97
== END 2024-05-27 14:10 | disposition home or self-care (01) ==
PROVIDERS: Emergency Provider Emergency Medicine
DX: M79.605 Pain in left leg (principal); R60.0 Localized edema; I87.2 Venous insufficiency (chronic) (peripheral); I10 Essential (primary) hypertension; Z79.899 Other long term (current) drug therapy
CPT/HCPCS: 36415; 80053; 85027; 93926; 93971; 99284

== ENCOUNTER 2024-10-15 01:57 | Emergency (ER) | payer OTHER, SELFPAY ==
[2024-10-15 01:59] VITALS: BP 136/79; PULSE 74; RESP 18; TEMP 36.9; O2SAT 94; BMI 56.2
--- OUTSIDE RECORDS SUMMARY | 2024-10-15 02:35 | XMS_ITS | Encounter Summary ---
Author Organization [employer] Address [address] [place] [address] Care Team Providers Care Avionics Mechanic Name Role Phone Courtney Martines [facility] Primary Care Provider Evelyne Rutledge [facility] Primary Care Provider [phone] [facility] Primary Care Provider [phone] Reason for Visit * Reason Comments Med Refill Encounter Details Date Type Department Care Team (Late st Contact Info) Description 08/05/2022 Refill [facility] [address] [place] [address] Ricardo Coleman AGNP Chronic pain of right knee Social History Tobacco Use Types Packs/Day Years Used Date Smoking Tobacco: Never Passive Smoke Exposure: Never Smokeless Tobacco: Never Comments:Denies tobacco use Alcohol Use Standard Drinks/Week Comments Not Currently 0 (1 standard drink = 0.6 oz pur e alcohol) 7 years sober Overall Financial Resource Strain (CARDIA) Answe r Date Recorded How hard is it for you to pa y for the very basics like food, housing, medical care, and heating? Hard 06/28/2022 Alcohol Answer Date Recorded Q1: How often do you have a drink containing alc ohol? 1 06/28/2022 Q2: How many drinks containi ng alcohol do you have on a typical day when you are drinking? 0 06/28/2022 Q3: How often do you have six or more drinks on one occasion? 1 06/28/2022 Depression Answer Date Recorded Patient Health Questionnaire-9 Score 12 06/28/2022 Depression Answer Date Recorded Patient Health Questionnaire-2 Score 0 06/28/2022 Sex and Gender Information Value Date Recorded Sex Assigned at Male 06/28/2022 9:15 AM EST Legal Sex Male 9:10 AM EST Gender Identity Male 06/28/2022 9:15 AM EST Sexual Orientation Choose not to disclose 2022 9:15 AM EST Occupation Industry Job Start Date Job End Date unemployed Not on file Not on file Not on file COVID-19 Exposure Response Date Recorded In the last 10 days, have yo u been in contact with someone who was confirmed or suspected to have Coronavirus/COVID-19? No / Unsure 07/24/2022 8:43 AM EST documented as of this encounter Plan of Treatment Not on file documented as of this encounter Visit Diagnoses Diagnosis Chronic pain of right knee documented in this encounter Additional Health Concerns Assessment Noted Time PHQ-9 Depression Total Score: 12 023 3:28 PM EST documented as of this encounter Care Teams Avionics Mechanic Relationship Specialty Start Date End Date Courtney Martines FNP PCP - General Family Medicine 07/14/22 08/20/22 Evelyne Elliott FNP [address] [place] [address] PCP - General Family Medicine 08/21/22 02/26/24 [place] FNP [address] [place] [address] PCP - General Family Medicine 02/27/24 documented as of this encounter
--- OUTSIDE RECORDS SUMMARY | 2024-10-15 02:35 | XMS_ITS | Encounter Summary ---
Author Organization [employer] Address [address] [place] [address] Care Team Providers Care Magazine Keeper Name Role Phone Courtney Martines [facility] Primary Care Provider Evelyne Rutledge [facility] Primary Care Provider [phone] [facility] Primary Care Provider [phone] Encounter Details Date Type Department Care Team (Late st Contact Info) Description 07/05/2022 Orders Only [facility] [address] [place] [address] Courtney Martines FNP JOHN (obstructive sleep apnea) (Primary Dx); Hypertension, unspecified type Social History Tobacco Use Types Packs/Day Years [...] suspected to have Coronavirus/COVID-19? No / Unsure 07/05/2022 3:03 PM EST documented as of this encounter Plan of Treatment Not on file documented as of this encounter Visit Diagnoses Diagnosis JOHN (obstructive sleep apnea)- Primary Obstructive sleep apnea (adult) (pediatric) Hypertension, unspecified type documented in this encounter Additional Health Concerns Assessment Noted Time PHQ-9 Depression Total Score: 12 023 3:28 PM EST documented as of this encounter Care Teams Magazine Keeper Relationship Specialty Start Date End Date Courtney Martines FNP PCP - General Family Medicine 07/14/22 08/20/22 Evelyne Elliott FNP [address] [place] [address] PCP - General Family Medicine 08/21/22 02/26/24 [place] ra[place] FNP [address] [place] [id number] PCP - General Family Medicine 02/27/24 documented as of this encounter
--- OUTSIDE RECORDS SUMMARY | 2024-10-15 02:35 | XMS_ITS | Encounter Summary ---
Author Organization [employer] Address [address] [place] [address] Care Team Providers Care Bilingual Case Manager Name Role Phone Aroldo Elliottnne [facility] Primary Care Provider [phone] [facility] Primary Care Provider [phone] Encounter Details Date Type Department Care Team (Late st Contact Info) Description 10/11/2022 Orders Only [facility] [address] [place] [address] Alesia Mak FNP Social History Tobacco Use Types Packs/Day Years [...] suspected to have Coronavirus/COVID-19? No / Unsure 09/27/2022 11:07 AM EDT documented as of this encounter Plan of Treatment Not on file documented as of this encounter Visit Diagnoses Not on filedocumented in this encounter Additional Health Concerns Assessment Noted Time PHQ-9 Depression Total Score: 12 023 3:28 PM EST documented as of this encounter Care Teams Bilingual Case Manager Relationship Specialty Start Date End Date Evelyne Elliott FNP [address] [place] [address] PCP - General Family Medicine 08/21/22 02/26/24 Sade Swartz FNP [address] [place] [address] PCP - General Family Medicine 02/27/24 documented as of this encounter
--- OUTSIDE RECORDS SUMMARY | 2024-10-15 02:36 | XMS_ITS | Clinical Summary ---
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 1 kit 06/28/19 23 Active Additional Information Patient not taking.Reported on 10/27/2022 Misc. Devices (Pulse Oximeter) miscIndications:OS A (obstructive sleep apnea) Place device on finger 3 times a day to monitor oxygen saturation level 1 each 07/05/19 23 Active Blood Pressure Monitoring (Omron 3 Series BP Monitor) device Check your blood pressure with cuff on upper arm twice per day OR NEEDED 06/29/19 23 Active cholecalciferol (Vitamin D3) 25 MCG (1000 UT) tabletIndications: Vitamin D deficiency TAKE 1 TABLET BY MOUTH EVERY DAY IN THE MORNING 90 tablet 1 09/28/19 23 Active lisinopril 10 MG tabletIndications: Elevated BP without diagnosis of hypertension Take 1 tablet (10 mg) by mouth in the morning. 30 tablet 11 09/28/19 23 Active atorvastatin (Lipitor) 80 MG tabletIndications: Hyperlipidemia, unspecified hyperlipidemia type TAKE 1 TABLET (80 MG) BY MOUTH IN THE MORNING 90 tablet 1 12/28/19 23 Active celecoxib (CeleBREX) 200 MG capsuleIndications :Chronic pain of right knee TAKE 1 CAPSULE BY MOUTH 2 TIMES DAILY. 60 capsule 2 01/25/20 23 Active Active Problems Problem Noted Date Diagnosed Date Hypertension 07/05/2022 Osteoarthritis 06/28/2022 Gout 06/28/2022 JOHN (obstructive sleep apnea) 06/28/2022 Hyperlipidemia 06/28/2022 Pre-diabetes 06/28/2022 Venous stasis dermatitis of both lower extremiti es 06/28/2022 Assessment & Plan (06/28/2022 10:15 PM EST): BLE edema with darkening and healed over areas, skin intact warm and dry. +CMS PMHx Cellulitis LE Will consider TEDS next visit Immunizations Name Administration Dates Next Due Influenza injectable quadriv alent IIV4 with preservative 04/25/2017 Moderna Covid-19 Vaccine 12+ 07/29/2021,06/30/19 Moderna Covid-19 Vaccine 6+ Bivalent 06/29/2022 Tdap 11/11/2008 Social History Tobacco Use Types Packs/Day Years Used Date Smoking Tobacco: Never Passive Smoke Exposure: Never Smokeless Tobacco: Never Tobacco Cessation:Counseling Given: Not Answered Comments:Denies tobacco use Alcohol Use Standard Drinks/Week [...] Recorded Patient Health Questionnaire-9 Score 12 06/28/2022 Housing Stability Answer Date Recorded What is your housing situation today? I have fazlajosh baron 04/24/[address] you li ve. Do you have problems with any of the following? None of the above 04/24/2023 Food Insecurity Answer Date Recorded Within the past 12 months, y ou worried that your food would run out before you got money to buy more: Sometimes True 2022 Within the past 12 months,th e food you bought just didn't last and you didn't have enough money to get more: Never True 04/24/2023 Transportation Answer Date Recorded In the past 12 months, has l ack of transportation kept you from medical appts, meetings, work or from getting things needed for daily living? No 04/24/2023 Utilities Answer Date Recorded In the past 12 months, has t he electric, gas, oil or water company threatened to shut off services in your home? No 04/24/2023 Depression Answer Date Recorded Patient Health Questionnaire-2 [...] file Not on file Not on file Last Filed Vital Signs Vital Sign Reading Time Taken Comments Blood Pressure 149/83 10/27/2022 2:58 PM EDT Pulse 80 10/27/2022 2:58 PM EDT Temperature 36.7 ??C (98.1 ??F) 10/27/2022 2:58 PM ED T Respiratory Rate 20 10/27/2022 2:58 PM EDT Oxygen Saturation 96% 10/27/2022 2:58 PM EDT Inhaled Oxygen Concentration - - Weight 154 kg (340 lb 2 oz) 10/27/2022 2:58 PM E DT Height 170.5 cm (5' 7.13 ) 09/27/2022 11:22 AM E DT Body Mass Index 53.06 09/27/2022 11:22 AM EDT Plan of Treatment Health Maintenance Due Date Last Done Comments CT Colonography 1965 Colonoscopy 1965 Colorectal Cancer Screening 1965 FIT DNA/Cologuard 1965 FIT 1965 FOBT 1965 HIV Screening 1965 Sigmoidoscopy 1965 Alcohol/Substance Use Screening 1977 Hepatitis C Screening 1983 Hepatitis B Vaccines (1 of 3 - 19+ 3-dose series) 1984 Pneumococcal Vaccine: 50+ Years (1 of 1 - PCV) 2015 Zoster Vaccines (1 of 2) 2015 DTaP/Tdap/Td Vaccines (2 - T d or Tdap) 11/11/2018 11/11/2008 Depression Monitoring 12/26/2022 06/28/2022 , 06/28/2022 Depression Screening 06/28/2023 06/28/2022, 06/28/2022 SDOH Screening 06/28/2023 06/28/2022 Tobacco Screening 09/28/2023 09/27/2022 COVID-19 Vaccine (4 - 2023-2 5 season) 2024 06/29/2022, 07/29/2021, 06/30/2021 Influenza Vaccine (#1) 2024 04/25/2017 Lipid Panel 06/29/2027 06/29/2022 RSV Patients and Patients Aged 60 years or older (1 - 1-dose 75+ series) 2040 HIB Vaccines Aged Out No longer eligi ble based on patient's age to complete this topic HPV Vaccines Aged Out No longer eligi ble based on patient's age to complete this topic Hepatitis A Vaccines Aged Out No long er eligible based on patient's age to complete this topic IPV Vaccines Aged Out No longer eligi ble based on patient's age to complete this topic Meningococcal Vaccine Aged Out No guerda jennifer eligible based on patient's age to complete this topic RSV under 20 months Aged Out No longe r eligible based on patient's age to complete this topic Rotavirus Vaccines Aged Out No longer eligible based on patient's age to complete this topic Procedures Procedure Name Priority Date/Time Associated Diagnosis Comments LIPID PANEL, STANDARD Routine 06/29/2022 10:08 AM EST Class 3 severe obesity with body mass index (BMI) of 50.0 to 59.9 in adult, unspecified obesity type, unspecified whether serious comorbidity present (CMS/FORMERLY [facility]) from Last 3 Months or Most Recently Relevant to Health Maintenance Results * (ABNORMAL) Lipid Panel, Standard (06/29/2022 10:08 AM EST) Cholesterol, Total 214(H) <200 mg/dL [facility] [place] [employer] HDL Cholesterol 52 > OR = 40 mg/dL [facility] [place] [employer] Triglycerides 65 <150 mg/dL [facility] [place] [employer] LDL Cholesterol 146(H) mg/dL (calc) [employer] Comment: Reference range: <100 Desirable range <100 mg/dL for primary prevention; ?? <70 mg/dL for patients with CHD or diabetic patients with > or = 2 CHD risk factors. LDL-C is now calculated using the Ale calculation, which is a validated novel method providing better accuracy than the Friedewald equation in the estimation of LDL-C. Curt SS et al. TINO. 2013;310(19): 8490-0516 (http://education.[employer]/faq/QDC295) Chol/HDLC Ratio 4.1 <5.0 (calc) [employer] Non-HDL Cholesterol 162(H) <130 mg/dL (calc) [employer] Comment: For patients with diabetes plus 1 major ASCVD risk factor, treating to a non-HDL-C goal of <100 mg/dL (LDL-C of <70 mg/dL) is considered a therapeutic option. Blood Venous blood specimen / Unknown 06/29/2022 10:08 AM EST 06/29/2022 10:08 AM EST Narrative [facility] - 06/29/2022 9:09 PM EST FASTING:YES PATIENT UNABLE TO VOID; ADVISED TO RETURN FOR COLLECTION. 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
--- NOTE | 2024-10-15 03:03 | ED.EXTPRO ---
HPI - Extremity Problem General Chief complaint: Extremity Problem Stated complaint: infected wounds lower legs Time Seen by Provider: 10/15/24 02:54 Source: patient Mode of arrival: ambulatory Limitations: no limitations History of Present Illness ED Provider: DR. Rucker HPI Narrative: 59-year-old male with history of morbid obesity, gout, HLD, chronic lymphedema came in for evaluation of possible cellulitis of the right leg. No fever, no chills, no drainage. Related Data Home Medications ?Medication ?Instructions ?Recorded ?Confirmed atorvastatin 80 mg tablet 80 mg PO DAILY 11/20/23 11/20/23 Previous Rx's ?Medication ?Instructions ?Recorded albuterol sulfate 90 mcg/actuation 2 puff inhalation Q6H PRN 11/21/23 aerosol inhaler (ProAir HFA) shortness of breath or wheezing #6.7 grams azithromycin 250 mg tablet 250 mg PO DAILY 3 days #3 tabs 11/21/23 prednisone 20 mg tablet 40 mg (2 x 20 mg) PO DAILY #8 tabs 11/21/23 aspirin 81 mg tablet,delayed 81 mg PO DAILY 30 days #30 tabs 05/27/24 release doxycycline hyclate 100 mg tablet 100 mg PO BID #20 tabs 10/15/24 Allergies Allergy/AdvReac Type Severity Reaction Status Date / Time No Known Allergies Allergy Verified 10/15/24 02:01 Review of Systems Review of Systems: All other systems are reviewed and are negative Constitutional: Reports as per HPI and Reports no additional constitutional complaints Eyes: Reports as per HPI and Reports no additional eye complaints Reports system reviewed and no additional complaints, except as documented Cardiovascular: Reports as per HPI and Reports no additional cardiovascular complaints Respiratory: Reports as per HPI and Reports no additional respiratory complaints Gastrointestinal: Reports as per HPI and Reports no additional gastrointestinal complaints Genitourinary: Reports no additional female genitourinary complaints Musculoskeletal: Reports no additional musculoskeletal complaints Skin/Breast: Reports system reviewed and no additional complaints, except as docu Psychiatric: Reports no additional psychiatric complaints Endocrine: Reports no additional endocrine complaints Hematologic/Lymphatic: Reports no additional hematologic/lymphatic complaints Allergic/Immunologic: Reports no additional allergic/immunologic complaints Reports system reviewed and no additional complaints, except as documented and Reports Abnormal speech present [facility] Past Medical History Medical History Arthritis Hyperlipidemia Gout Surgical History H/O hernia repair Family History Family History Other No significant family history Social History Social History Household Members: Friend(s) Housing: House Do you presently have visiting nurse or other home services: No Alcohol intake: never Patient Tobacco Use Status: Never used Tobacco Advance Directives: Yes Advance Directives on File: Yes Advance Directives Date on File: 06/10/21 Do you have a plan to hurt others: No Plan service: No Current occupational status: employed Physical Exam Vital Signs: Vital Signs: Last Vital Signs Temp 98.4 F 10/15/24 03:27 Pulse 67 10/15/24 03:27 Resp 19 10/15/24 03:27 BP 136/71 10/15/24 03:27 Pulse Ox 94 10/15/24 03:27 O2 Del Method Room Air 10/15/24 03:27 BMI result Body Mass Index 56.2 Vital signs have been reviewed and appear to be correct. Blood pressure elevated. Heart rate normal. Respiratory rate normal. Temperature normal. Oxygen saturation normal. Appearance: Alert. Oriented X3. No acute distress. Head: Normal external exam. Normocephalic. Atraumatic. No Lilly signs noted. No raccoon eyes noted Eyes: PERRLA. EOMI. Conjunctiva and sclera normal. Eyelids normal. ENT: TM's Normal. Pharynx normal. Uvula midline. Moist mucous membranes. No trismus noted. No drooling noted. No muffled voice noted. Neck: Normal inspection. Neck supple. FROM. No adenopathy. Thyroid Normal. No meningeal signs. No neck mass noted. CVS: Normal heart rate and rhythm. Heart sound normal. No murmurs noted. Pulses normal throughout. Respiratory: No respiratory distress. Painless inspiration. Breath sounds normal. No wheezes/rales/rhonchi noted. Chest nontender. No accessory muscle usage noted or decreased air movement noted. Abdomen: Soft and nontender. Bowel sounds normal in all 4 quadrants. No distention noted. No organomegaly noted. No visible injury noted. Back: No CVA tenderness. Full range of motion noted. Skin: Skin warm and dry. Normal skin color. Normal skin turgor. No rashes/lesions/lacerations noted. Extremities: Chronic lymphedema with venous stasis, slightly erythematous area of 2 x 3 cm with hotness, no fluctuation, no drainage. Neuro: Oriented X 3. Cranial nerve exam: II-XII are grossly intact No motor deficit. No sensory deficit. Reflexes normal. Course Reevaluation(s) Reevaluation #1: A simple noncomplicated cellulitis of right leg no sepsis, will start on doxycycline. Time: 04:07 Medications Administered Discontinued Medications Generic Name Dose Route Start Last Admin Trade Name Freq PRN Reason Stop Dose Admin Doxycycline Monohydrate 100 mg 10/15/24 03:01 10/15/24 03:19 Doxycycline Monohydrate 100 Mg Capsule PO 10/15/24 03:02 100 mg ONCE ONE Administration Medical Decision Making Differential Diagnosis Differential Diagnoses: The differential diagnosis associated with the presentation includes (Right leg cellulitis, sepsis) Admission/Observation Consideration of admission/observation: Escalation of care including admission/observation considered Lab Data [facility] Lab Attestation statement: I reviewed the patient's lab results. 10/15/24 03:17 10/15/24 03:17 Labs: Lab Results 10/15/24 Range/Units 03:17 WBC 7.1 (4.8-10.8) X10*3/uL RBC 4.44 L (4.60-5.80) X10*6/uL Hgb 14.0 (14.0-18.0) g/dl Hct 41.8 L (42.0-52.0) % MCV 94.1 (80.0-98.0) fL MCH 31.5 (27.0-33.0) pg MCHC 33.5 (31.0-36.0) g/dl RDW 12.6 (11.0-16.0) % Plt Count 172 (160-400) X10*3/uL MPV 9.5 (9.4-12.4) fL Immature Gran % (Auto) 0.4 (0.0-0.4) % Neut % (Auto) 57.3 (45-73) % Lymph % (Auto) 30.1 (20-40) % [place] % (Auto) 9.7 (2-11) % Eos % (Auto) 2.1 (0-4) % Baso % (Auto) 0.4 (0-2) % Lymph # (Auto) 2.2 (1.2-4.9) X10*3/uL [place] # (Auto) 0.7 (0.1-1.2) X10*3/uL Eos # (Auto) 0.2 (0.0-0.4) X10*3/uL Baso # (Auto) 0.0 (0.0-0.2) X10*3/uL Abs Immat Gran (auto) 0.03 (0.00-0.03) X10*3/uL Absolute Neuts (auto) 4.1 (2.0-8.3) x10*3/uL Absolute Nucleated RBC 0.000 (0.0-0.012) X10*3/uL Nucleated RBC % (auto) 0.0 (0.0-0.2) /100WBC Sodium 142 (135-145) mmol/L Potassium 4.1 (3.3-5.1) mmol/L Chloride 103 (96-108) mmol/L Carbon Dioxide 30 H (22-29) mmol/L Anion Gap 13 (12-20) BUN 16 (9-16) mg/dL Creatinine 0.83 (0.5-1.4) mg/dL Estim Creat Clear Calc 151.0 Estimated GFR > 60 Random Glucose 92 (60-115) mg/dL Lactic Acid 1.2 (0.5-2.0) mmol/L Calcium 8.5 (8.4-10.2) mg/dL Total Bilirubin 0.3 (0.0-1.0) mg/dL Direct Bilirubin 0.1 (0.0-0.5) mg/dL AST 21 (5-37) U/L ALT 22 (0-40) U/L Alkaline Phosphatase 79 (39-117) U/L Troponin I High Sens 5.1 (<3.5-35.0) ng/L Total Protein 7.0 (6.5-8.0) g/dL Albumin 3.7 (3.5-5.0) g/dL Lipase 26 (8-78) U/L Discharge Plan Discharge Clinical Impression: Cellulitis Patient Disposition: Home, Self-Care Instructions: Cellulitis (ED) Prescriptions: New doxycycline hyclate 100 mg tablet 100 mg PO BID Qty: 20 0RF No Action atorvastatin 80 mg tablet 80 mg PO DAILY prednisone 20 mg tablet 40 mg PO DAILY Qty: 8 0RF albuterol sulfate [ProAir HFA] 90 mcg/actuation HFA aerosol inhaler 2 puff inhalation Q6H PRN (Reason: shortness of breath or wheezing) Qty: 6.7 1RF azithromycin 250 mg tablet 250 mg PO DAILY 3 Days Qty: 3 0RF Rx Instructions: start on day 2 of therapy aspirin 81 mg tablet,delayed release (DR/EC) 81 mg PO DAILY 30 Days Qty: 30 0RF Referrals: Shyam Lindsey PA [Primary Care Provider] - Print Language: Slovak
[2024-10-15] MEDS: Doxycycline Monohydrate 100 MG CAPSULE PO (03:19)
[2024-10-15 03:26] LABS: MANUAL DIFF FLAG NO
[2024-10-15 03:27] VITALS: BP 136/71; PULSE 67; RESP 19; TEMP 36.9; O2SAT 94
[2024-10-15 03:27] LABS: Basophils Percent Auto 0.4 % (0-2); Eosinophils Absolute Auto 0.2 X10*3/uL (0.0-0.4); Eosinophils Percent Auto 2.1 % (0-4); Hematocrit 41.8 % (42.0-52.0); Imm Gran Abs Auto 0.03 X10*3/uL (0.00-0.03); Imm Gran Pct Auto 0.4 % (0.0-0.4); Lymphocytes Absolute Auto 2.2 X10*3/uL (1.2-4.9); Lymphocytes Percent Auto 30.1 % (20-40); Mean Corpuscular HGB Conc 33.5 g/dl (31.0-36.0); Mean Corpuscular Hemoglobin 31.5 pg (27.0-33.0); Mean Corpuscular Volume 94.1 fL (80.0-98.0); Mean Platelet Volume 9.5 fL (9.4-12.4); Monocytes Absolute Auto 0.7 X10*3/uL (0.1-1.2); Monocytes Percent Auto 9.7 % (2-11); Neutrophils Absolute Auto 4.1 x10*3/uL (2.0-8.3); Neutrophils Percent Auto 57.3 % (45-73); Platelet Count 172 X10*3/uL (160-400); Red Blood Count 4.44 X10*6/uL (4.60-5.80); Red Cell Distribution Width 12.6 % (11.0-16.0); White Blood Count 7.1 X10*3/uL (4.8-10.8)
[2024-10-15 03:42] LABS: Alanine Aminotransferase 22 U/L (0-40); Albumin Level 3.7 g/dL (3.5-5.0); Alkaline Phosphatase 79 U/L (39-117); Anion Gap 13 (12-20); Aspartate Amino Transferase 21 U/L (5-37); Bilirubin Direct 0.1 mg/dL (0.0-0.5); Bilirubin Total 0.3 mg/dL (0.0-1.0); Blood Urea Nitrogen 16 mg/dL (9-16); Calcium 8.5 mg/dL (8.4-10.2); Carbon Dioxide 30 mmol/L (22-29); Chloride 103 mmol/L (96-108); Estimated Glomerular Filt Rate > 60; Glucose Random 92 mg/dL (60-115); Lipase 26 U/L (8-78); Potassium 4.1 mmol/L (3.3-5.1); Sodium 142 mmol/L (135-145)
[2024-10-15 03:44] LABS: Lactic Acid 1.2 mmol/L (0.5-2.0)
[2024-10-15 03:47] LABS: Troponin-I High Sensitivity 5.1 ng/L (<3.5-35.0)
[2024-10-15 04:50] VITALS: BP 136/71; PULSE 67; RESP 19; TEMP 36.9; O2SAT 94
== END 2024-10-15 04:50 | disposition home or self-care (01) ==
PROVIDERS: Emergency Provider Emergency Medicine; PCP Physician Assistant Medical
DX: L03.115 Cellulitis of right lower limb (principal)
CPT/HCPCS: 36415; 80048; 80076; 83605; 83690; 84484; 85025; 87040; 99283; 99284